=== PATIENT | male | born 1960 | race Caucasian/White ===

== ENCOUNTER 2024-04-07 12:07 | Inpatient (IN) ==
[2024-04-07 12:41] LABS: Basophils # (auto) 0.01 K/uL (0.00-0.20); Basophils % (auto) 0.1 %; Eosinophils # (auto) 0.05 K/uL (0.00-0.50); Eosinophils % (auto) 0.5 %; Hematocrit (blood only) 38.6 % (42.0-52.0); Hemoglobin 13.1 g/dl (14.0-18.0); Immature Granulocytes # (auto) 0.06 K/uL (0.01-0.20); Immature Granulocytes % (auto) 0.6 %; Lymphocytes # (auto) 2.04 K/uL (1.20-3.40); Lymphocytes % (auto) 19.7 %; Mean Corpuscular Hemoglobin 29.8 pg (25.0-34.0); Mean Corpuscular Hgb Conc 33.9 g/dL (32.0-36.0); Mean Corpuscular Volume 87.9 fL (80.0-100.0); Mean Platelet Volume 9.4 fL (9.4-12.4); Monocytes # (auto) 0.42 K/uL (0.11-0.59); Monocytes % (auto) 4.1 %; Neutrophils # (auto) 7.78 K/uL (1.40-6.50); Platelet Count 206 K/uL (130-400); RDW Coefficient of Variation 12.7 % (11.5-14.5); RDW Standard Deviation 41.1 fL (36.4-46.3); Red Blood Count 4.39 M/uL (4.70-6.10); White Blood Count 10.36 K/ul (4.8-10.8)
--- NOTE | 2024-04-07 13:00 | XRay Report ---
XR chest 1V portable HISTORY: 64 years-old Male dizziness COMPARISON: None TECHNIQUE: AP view of the chest FINDINGS: Cardiac silhouette is upper limits of normal in size. Cervical spinal fusion hardware. No pneumothora x, pleural effusion or airspace consolidation. Chronic appearing mid right clavicular fracture deform ity. Age-indeterminate widening of the left AC joint, also likely chronic. IMPRESSION: No acute process. ACT 112: Negative or not required by law. The above report was generated using voice recognition software. It may contain grammatical, syntax o r spelling errors. Electronically signed by: Jesus Alberto Palmer M.D. 04/07/2024 12:58 PM
[2024-04-07 13:04] LABS: Albumin Globulin Ratio 1.2 (0.9-2); BUN Creatinine Ratio 22.2 (10-20); Bilirubin,Total 0.9 mg/dl (0.2-1.0); Calcium 9.5 mg/dl (8.6-10.3); Creatinine Clr Calc Pharmacy 135.5 ml/min; Globulin 3.3 gm/dl (2.5-4.0); Magnesium 1.9 mg/dl (1.7-2.4); Phosphorus 3.2 mg/dl (2.5-4.9); Potassium 4.3 mmol/L (3.5-5.1); Total Protein 7.3 gm/dl (6.0-8.3)
[2024-04-07 13:05] LABS: Prothrombin Time 10.5 Seconds (9.0-12.0)
[2024-04-07 13:16] LABS: Thyroid Stimulating Hormone 1.069 uIu/ml (0.300-4.500)
[2024-04-07 13:28] LABS: Adenovirus PCR Not Detected (NotDetected); Bordetella parapertussis PCR Not Detected (NotDetected); Bordetella pertussis PCR Not Detected (NotDetected); Chlamydia pneumoniae PCR Not Detected (NotDetected); Coronavirus 229E PCR Not Detected (NotDetected); Coronavirus CoV-2 (COVID19)PCR Not Detected (NotDetected); Coronavirus HKU1 PCR Not Detected (NotDetected); Coronavirus NL63 PCR Not Detected (NotDetected); Coronavirus OC43PCR Not Detected (NotDetected); Human Metapneumovirus PCR Not Detected (NotDetected); Influenza A PCR Not Detected (NotDetected); Influenza B PCR Not Detected (NotDetected); Mycoplasma pneumoniae PCR Not Detected (NotDetected); Parainfluenza Virus 1 PCR Not Detected (NotDetected); Parainfluenza Virus 2 PCR Not Detected (NotDetected); Parainfluenza Virus 3 PCR Not Detected (NotDetected); Parainfluenza Virus 4 PCR Not Detected (NotDetected); Respiratory Syncytial VirusPCR Not Detected (NotDetected); Rhinovirus/Enterovirus PCR Not Detected (NotDetected)
[2024-04-07] MEDS: ONDANSETRON INJ 2 MG/ML 2 ML VIAL IV STA ×2 (14:08→21:12)
[2024-04-07] MEDS: MECLIZINE HCL 25 MG TAB PO STA (14:09)
[2024-04-07] MEDS: SODIUM CHLORIDE 0.9% 1,000 ML IV ONE (14:13)
--- NOTE | 2024-04-07 14:29 | Emergency Department Note ---
Impression & Plan Vertigo, Imbalance, Abnormal CT scan of head ED Provider Note NAME: GUY HOBBS AGE: 64 SEX: M : 1960 ARRIVES VIA: Ambulance INFORMANT: Patient ED PROVIDER(S): Manny Flowers MD CHIEF COMPLAINT: Vertigo PLAN: Disposition: Admit MEDICAL DECISION MAKING: The patient is a pleasant 64-year-old gentleman with a past medical history of type 2 diabetes, hypertension, BPH who presents to the emergency department via EMS for evaluation of persistence of room spinning/vertigo with associated nausea and dry heaves at began last night. Patient denies having prior similar episodes. He denies any recent illness including denies fevers, chills, cough, congestion. He reports having some loose stool which is not uncommon for him in the setting of his diabetes medication. He denies any urinary symptoms. He denies any chest pain or shortness of breath. He reports taking a low-dose aspirin daily. He is not on anticoagulation. On evaluation the patient is fatigued appearing but no distress, afebrile heart in the 90s and blood pressure 150s/80s and vital signs otherwise stable. Appears clinically dry. He has no focal neurologic deficits at this time. However he reports subtle persistence of room spinning sensation at rest. He reports symptoms worsen with head movements. EKG without overt acute ischemia. CXR negative for acute cardiopulmonary process per my personal preliminary review/interpretation. WBC and platelets within normal limits. Chemistry without metabolic acidosis. BUN/creatinine is 22 consistent with patient's clinically dry appearance. LFTs are unremarkable. HS troponin 5.0, within normal limits. Lipase is normal. TSH within normal limits. Respiratory bio fire was negative. CT of the head and CT of the head and neck were performed and were negative for acute ICH or ischemia. However note is made of left basal ganglia hypodensity which is suspected to likely be chronic and could represent a prominent perivascular space or a small old infarct. On reevaluation patient denied any significant treatment following evaluation, Zofran and meclizine. Given persistence of his symptoms and imaging which suggest possibility of history of stroke patient agrees to plan for admission for further evaluation and management. Case was discussed with Brandi Cohen, [facility] PAC, with Dr. Bermudez, [facility] hospitalist who will evaluate the patient for admission. Further management per admitting team. Triage Nursing notes reviewed and agree them. Prior/external medical records reviewed Vital Signs: reviewed Differential diagnosis: Benign positional vertigo, dehydration, hypovolemia, anemia, tumor, infection, hypoglycemia, electrolyte abnormalities, cardiac sources, intracerebral event, toxicologic, neurologic, as well as other pathologies. ER treatment provided: See below. Diagnostics interpreted by me: ECG: Normal sinus rhythm, 79 bpm, no ectopy, no overt ST elevation or depression, QTc 449, QRS 90. Cardiac Monitoring: An order for continuous cardiac monitoring was placed and demonstrated Normal sinus rhythm, 79 bpm, no ectopy. Laboratory studies: See below Imaging studies: See below Consultation(s): Case was discussed with Brandi Cohen, [facility] PAC, with Dr. Bermudez, [facility] hospitalist who will evaluate the patient for admission. HPI: The patient is a pleasant 64-year-old gentleman with a past medical history of type 2 diabetes, hypertension, BPH who presents to the emergency department via EMS for evaluation of persistence of room spinning/vertigo with associated nausea and dry heaves at began last night. Patient denies having prior similar episodes. He denies any recent illness including denies fevers, chills, cough, congestion. He reports having some loose stool which is not uncommon for him in the setting of his diabetes medication. He denies any urinary symptoms. He denies any chest pain or shortness of breath. He reports taking a low-dose aspirin daily. He is not on anticoagulation. ROS: See above HPI for pertinent positives & negatives. A total of 10 systems reviewed and were otherwise negative. VITALS:See Below PHYSICAL EXAMINATION: GENERAL: Awake, alert, fatigued-appearing, in no distress, BMI 38.6. HENT: Normocephalic, atraumatic. Oropharynx with dry mucous membranes and otherwise unremarkable. EYES: Normal conjunctiva. Sclera non-icteric. EOMI. No nystamgus. PEARRL. NECK: Supple. No nuchal rigidity. FROM. No JVD. RESPIRATORY: Clear to auscultation. CARDIAC: Regular rate, normal rhythm. Extremities warm and well perfused. Pulses equal. ABDOMEN: Soft, non-distended. No tenderness to palpation. No rebound or guarding. No masses. MUSCULOSKELETAL: Chest examination reveals no tenderness. The back is symmetrical on inspection without obvious abnormality. There is no CVA tenderness to palpation. No joint edema. LOWER EXTREMITIES: Calves are equal size bilaterally and non-tender. No edema. No discoloration. NEURO: Normal sensorium. No sensory or motor deficits noted. 5/5 strength and SILT x 4 extremities. Cerebellar function intact including [id number], alternating palms, [id number]. SKIN: No rash or jaundice noted. Manny Flowers MD Past Med/Surg History Problem List Abnormal CT scan of head (Acute) Imbalance (Acute) Vertigo (Acute) Medical History BPH (benign prostatic hyperplasia) Type 2 diabetes mellitus Social History Smoking Status: Never smoker Preferred Language: Angolan Feels Safe at Home: Yes Allergies Allergies Allergy/AdvReac Type Severity Reaction Status Date / Time No Known Allergies Allergy Unverified 04/07/24 16:53 Home Meds Home Medications Medication Instructions Recorded Confirmed atorvastatin 40 mg tablet 40 mg PO QAM 04/07/24 04/07/24 dulaglutide 4.5 mg/0.5 mL 4.5 mg subcut WK 04/07/24 04/07/24 subcutaneous pen injector (Trulicity) famotidine 20 mg tablet 20 mg PO BID PRN heart burn 04/07/24 04/07/24 glipizide 10 mg tablet, extended 20 mg PO QAM 04/07/24 04/07/24 release 24 hr hydrochlorothiazide 25 mg tablet 25 mg PO QAM 04/07/24 04/07/24 hydrocodone 7.5 mg-acetaminophen 1 tab PO Q6H PRN Pain 04/07/24 04/07/24 325 mg tablet insulin glargine 100 unit/mL (3 40 - 45 unit subcut UD 04/07/24 04/07/24 mL) subcutaneous pen (Lantus Solostar U-100 Insulin) lisinopril 10 mg tablet 10 mg PO QAM 04/07/24 04/07/24 metformin 500 mg tablet,extended 1,000 mg PO BID 04/07/24 04/07/24 release 24 hr tamsulosin 0.4 mg capsule 0.4 mg PO QAM 04/07/24 04/07/24 Results & Data (ED) Vital Signs Vital Signs - 24 hr 04/07/24 12:18 04/07/24 12:18 04/07/24 12:27 Temperature 36.9 C Temperature Source Temporal Artery Scan Pulse Rate 97 H 90 80 Pulse Rhythm Regular Respiratory Rate 12 12 Respiratory Effort / Characteristics Non-Labored Respiratory Depth Normal Respiratory Pattern Regular Blood Pressure 158/84 H Blood Pressure Mean 108 Pulse Oximetry 96 96 Oxygen Delivery Method Room Air Room Air Sepsis Recent Fever Within 48 Hours No Sepsis New/Unexplained Change in Mental Status N/A Sepsis Action Taken by Nursing No Action Required 04/07/24 12:30 04/07/24 13:00 04/07/24 13:30 Temperature Temperature Source Pulse Rate 83 84 77 Pulse Rhythm Respiratory Rate 18 18 14 Respiratory Effort / Characteristics Respiratory Depth Respiratory Pattern Blood Pressure 149/89 H 145/84 H 134/82 Blood Pressure Mean 120 97 102 Pulse Oximetry 96 Oxygen Delivery Method Sepsis Recent Fever Within 48 Hours Sepsis New/Unexplained Change in Mental Status Sepsis Action Taken by Nursing 04/07/24 14:00 04/07/24 14:30 04/07/24 14:48 Temperature Temperature Source Pulse Rate 70 80 Pulse Rhythm Respiratory Rate 14 21 21 Respiratory Effort / Characteristics Respiratory Depth Respiratory Pattern Blood Pressure 136/83 150/84 H Blood Pressure Mean 98 114 Pulse Oximetry 95 98 Oxygen Delivery Method Sepsis Recent Fever Within 48 Hours Sepsis New/Unexplained Change in Mental Status Sepsis Action Taken by Nursing 04/07/24 16:00 04/07/24 16:00 04/07/24 16:15 Temperature Temperature Source Pulse Rate 75 76 Pulse Rhythm Respiratory Rate 20 18 Respiratory Effort / Characteristics Respiratory Depth Respiratory Pattern Blood Pressure 138/79 Blood Pressure Mean 110 Pulse Oximetry Oxygen Delivery Method Sepsis Recent Fever Within 48 Hours Sepsis New/Unexplained Change in Mental Status Sepsis Action Taken by Nursing 04/07/24 16:24 04/07/24 16:30 04/07/24 16:30 Temperature Temperature Source Pulse Rate 77 Pulse Rhythm Respiratory Rate Respiratory Effort / Characteristics Respiratory Depth Respiratory Pattern Blood Pressure 134/79 134/79 Blood Pressure Mean 109 109 Pulse Oximetry Oxygen Delivery Method Sepsis Recent Fever Within 48 Hours Sepsis New/Unexplained Change in Mental Status Sepsis Action Taken by Nursing 04/07/24 16:30 Temperature Temperature Source Pulse Rate 78 Pulse Rhythm Respiratory Rate 18 Respiratory Effort / Characteristics Respiratory Depth Respiratory Pattern Blood Pressure Blood Pressure Mean Pulse Oximetry Oxygen Delivery Method Sepsis Recent Fever Within 48 Hours Sepsis New/Unexplained Change in Mental Status Sepsis Action Taken by Nursing Laboratory Data 04/07/24 12:16 04/07/24 12:16 Lab Results 04/07/24 Range/Units 12:16 WBC 10.36 (4.8-10.8) K/ul RBC 4.39 L (4.70-6.10) M/uL Hgb 13.1 L (14.0-18.0) g/dl Hct 38.6 L (42.0-52.0) % MCV 87.9 (80.0-100.0) fL MCH 29.8 (25.0-34.0) pg MCHC 33.9 (32.0-36.0) g/dL RDW Std Deviation 41.1 (36.4-46.3) fL RDW Coeff of Shira 12.7 (11.5-14.5) % Plt Count 206 (130-400) K/uL MPV 9.4 (9.4-12.4) fL Immature Gran % (Auto) 0.6 % Neut % (Auto) 75.0 % Lymph % (Auto) 19.7 % Redwood % (Auto) 4.1 % Eos % (Auto) 0.5 % Baso % (Auto) 0.1 % Neut # (Auto) 7.78 H (1.40-6.50) K/uL Lymph # (Auto) 2.04 (1.20-3.40) K/uL Redwood # (Auto) 0.42 (0.11-0.59) K/uL Eos # (Auto) 0.05 (0.00-0.50) K/uL Baso # (Auto) 0.01 (0.00-0.20) K/uL Immature Gran # (Auto) 0.06 (0.01-0.20) K/uL PT 10.5 (9.0-12.0) Seconds INR 1.0 (0.9-1.1) Sodium 139 (136-145) mmol/L Potassium 4.3 (3.5-5.1) mmol/L Chloride 102 (98-107) mmol/L Carbon Dioxide 31 (21-32) mmol/L Anion Gap 6 (3-11) BUN 18 (6-23) mg/dl Creatinine 0.81 (0.6-1.4) mg/dl Est Cr Clr Drug Dosing 135.5 ml/min eGFR 97.24 BUN/Creatinine Ratio 22.2 H (10-20) Glucose 136 H (70-99(Fasting)) mg/dl Calcium 9.5 (8.6-10.3) mg/dl Phosphorus 3.2 (2.5-4.9) mg/dl Magnesium 1.9 (1.7-2.4) mg/dl Total Bilirubin 0.9 (0.2-1.0) mg/dl AST 24 (13-39) U/L ALT 30 (7-52) U/L Alkaline Phosphatase 60 (34-104) U/L Troponin I High Sens 5.0 (0-20) pg/ml Total Protein 7.3 (6.0-8.3) gm/dl Albumin 4.0 (3.4-5.0) gm/dl Globulin 3.3 (2.5-4.0) gm/dl Albumin/Globulin Ratio 1.2 (0.9-2) Lipase 14 (11-82) U/L TSH 1.069 (0.300-4.500) uIu/ml Adenovirus (PCR) Not Detected (NotDetected) B. pertussis DNA (PCR) Not Detected (NotDetected) B.parapertussis DNA PCR Not Detected (NotDetected) C. pneumoniae DNA (PCR) Not Detected (NotDetected) Coronavirus OC43 (PCR) Not Detected (NotDetected) Coronavirus HKU1 (PCR) Not Detected (NotDetected) Coronavirus 229E (PCR) Not Detected (NotDetected) SARS-CoV-2 (PCR) Not Detected (NotDetected) Coronavirus NL63 (PCR) Not Detected (NotDetected) Human Metapneumovir PCR Not Detected (NotDetected) Influenza Type A (PCR) Not Detected (NotDetected) Influenza Type B (PCR) Not Detected (NotDetected) M. pneumoniae (PCR) Not Detected (NotDetected) Parainfluenza 1 (PCR) Not Detected (NotDetected) Parainfluenza 2 (PCR) Not Detected (NotDetected) Parainfluenza 3 (PCR) Not Detected (NotDetected) Parainfluenza 4 (PCR) Not Detected (NotDetected) RSV (PCR) Not Detected (NotDetected) Entero/Rhino (PCR) Not Detected (NotDetected) Administered Medications Discontinued Medications Sodium Chloride (Nss) 1,000 mls @ 999 mls/hr IV .Q1H1M ONE Stop: 04/07/24 14:48 Last Infusion: 04/07/24 15:19 Dose: Infused Documented By: Admin: 04/07/24 14:13 Dose: 999 mls/hr Documented By: VINEET Ioversol (Optiray 320 125ml) 119 ml IV ONCE ONE Stop: 04/07/24 15:27 Last Admin: 04/07/24 15:26 Dose: 119 ml Documented By: ADALGISA Meclizine HCl (Meclizine Hcl 25 Mg Tab) 25 mg PO NOW STA Stop: 04/07/24 13:49 Last Admin: 04/07/24 14:09 Dose: 25 mg Documented By: VINEET Ondansetron HCl (Ondansetron Inj 2 Mg/Ml 2 Ml Vial) 4 mg IV NOW STA Stop: 04/07/24 13:49 Last Admin: 04/07/24 14:08 Dose: 4 mg Documented By: VINEET Imaging Data Radiologist's Impression: Chest X-Ray 04/07/24 12:12 XR chest 1V portable HISTORY: 64 years-old Male dizziness COMPARISON: None TECHNIQUE: AP view of the chest FINDINGS: Cardiac silhouette is upper limits of normal in size. Cervical spinal fusion hardware. No pneumothorax, pleural effusion or airspace consolidation. Chronic appearing mid right clavicular fracture deformity. Age-indeterminate widening of the left AC joint, also likely chronic. IMPRESSION: No acute process. ACT 112: Negative or not required by law. The above report was generated using voice recognition software. It may contain grammatical, syntax or spelling errors. Electronically signed by: Jesus Alberto Palmer M.D. 04/07/2024 12:[address] 04/07/24 13:48 CT OF THE HEAD WITHOUT CONTRAST CLINICAL HISTORY: Vertigo. COMPARISON STUDY: No previous studies for comparison. CT DOSE: 1697.69 mGy.cm TECHNIQUE: Helical axial images of the head were obtained without IV contrast. Automated exposure control was utilized for the study. A dose lowering technique was utilized adhering to the principles of ALARA. FINDINGS: No acute intracranial hemorrhage, midline shift or mass effect is present. The ventricular system is unremarkable. The basal cisterns are patent. A 1.3 cm hypodense focus within the left basal ganglia is present. No extra- axial collections are present. There are no findings to suggest acute dural sinus thrombosis or acute territorial infarct. No significant calvarial abnormalities are present. Visualized portions of the sinuses and mastoid air cells are clear. IMPRESSION: 1. No acute intracranial findings. 2. 1.3 cm hypodense focus within the left basal ganglia. This is likely chronic and could represent a prominent perivascular space or small old infarct. ACT 112: Negative or not required by law. Electronically signed by: Tobi Acuña M.D. 04/07/2024 3:51 PM Head CTA 04/07/24 13:48 CT angio head w con CLINICAL HISTORY: 64 years-old Male with vertigo. Acute vertigo COMPARISON STUDY: Head CT of same day TECHNIQUE: Following, following the IV administration of 119 cc of Optiray, CT angiogram of the brain was performed from the skull base to the vertex. Images are reviewed in the axial, sagittal, and coronal planes. 3-D MIPS images are created and assessed. IV contrast was administered without complication. All measurements were obtained according to NASCET criteria. A dose lowering technique was utilized adhering to the principles of ALARA. FINDINGS: CT ANGIOGRAM OF THE BRAIN: There is moderate atherosclerosis of the cavernous and clinoid segments of the internal carotid arteries without significant stenosis. The bilateral anterior and middle cerebral arteries are also patent. The vertebrobasilar system and posterior cerebral arteries are widely patent. There is no aneurysm, high-grade stenosis, or proximal branch occlusion identified. Dural sinuses appear patent. Extra-axial 1.2 cm calcification noted along the inner table of the skull adjacent to the superior right frontal lobe. Moderate mucosal thickening of the inferior right maxillary sinus. Cervical spinal fusion hardware. IMPRESSION: Unremarkable CTA of the head. ACT 112: Negative or not required by law. The above report was generated using voice recognition software. It may contain grammatical, syntax or spelling errors. Electronically signed by: Jesus Alberto Palmer M.D. 04/07/2024 4:04 PM Neck CTA 04/07/24 13:48 CT ANGIOGRAPHY OF THE NECK WITH CONTRAST CLINICAL HISTORY: Vertigo. COMPARISON STUDY: No previous studies for comparison. Technique: CT angiography of the carotid and vertebral arteries was obtained using Optiray and 3D reconstruction on an independent workstation. NASCET criteria was utilized. Automated exposure control was utilized for the study. A dose lowering technique was utilized adhering to the principles of ALARA. Findings: Visualized portions of the lung apices are unremarkable. There are no cervical spine fractures. Postoperative findings within the cervical spine are noted. The bilateral common carotid and cervical internal carotid arteries are patent. There is mild plaque within the left carotid bifurcation without stenosis. There is no aneurysm or dissection within the neck. The right vertebral artery is patent. The origin of the left vertebral artery is suboptimally assessed due to artifact however there is tortuosity with suspected moderate narrowing at the origin of the left vertebral artery. There is no dissection within the vertebral arteries. IMPRESSION: 1. No stenoses within the bilateral common carotid or cervical internal carotid arteries. 2. Suspected moderate stenosis at the origin of the left vertebral artery, suboptimally assessed due to artifact. ACT 112: Negative or not required by law. Electronically signed by: Tobi Acuña M.D. 04/07/2024 4:08 PM Discharge Plan Visit Data Chief Complaint: Vertigo ED Provider: Manny Flowers Discharge Problem: Vertigo, Imbalance, Abnormal CT scan of head Forms Stand Alone Forms: [facility] Prescriptions Prescriptions: No Action atorvastatin 40 mg tablet 40 mg PO QAM glipizide 10 mg tablet extended release 24hr 20 mg PO QAM famotidine 20 mg tablet 20 mg PO BID PRN (Reason: heart burn) tamsulosin 0.4 mg capsule 0.4 mg PO QAM hydrocodone-acetaminophen 7.5-325 mg tablet 1 tab PO Q6H PRN (Reason: Pain) lisinopril 10 mg tablet 10 mg PO QAM hydrochlorothiazide 25 mg tablet 25 mg PO QAM metformin 500 mg tablet extended release 24 hr 1,000 mg PO BID insulin glargine [Lantus Solostar U-100 Insulin] 100 unit/mL (3 mL) insulin pen 40 - 45 unit SUBCUT UD Rx Instructions: 45 units subcut qam, 40 units subcut qpm Trulicity 4.5 mg/0.5 mL pen injector 4.5 mg subcut WK Rx Instructions: friday mornings Referrals Referrals: Marinelli,Rashaun, MD [Primary Care Provider] -
[2024-04-07] MEDS: OPTIRAY 320 125ml IV ONE (15:26)
--- NOTE | 2024-04-07 15:53 | CT Scan Report ---
CT OF THE HEAD WITHOUT CONTRAST CLINICAL HISTORY: Vertigo. COMPARISON STUDY: No previous studies for comparison. CT DOSE: 1697.69 mGy.cm TECHNIQUE: Helical axial images of the head were obtained without IV contrast. Automated exposure con trol was utilized for the study. A dose lowering technique was utilized adhering to the principles o f ALARA. FINDINGS: No acute intracranial hemorrhage, midline shift or mass effect is present. The ventricular system is unremarkable. The basal cisterns are patent. A 1.3 cm hypodense focus within the left basal ganglia is present. No extra-axial collections are present. There are no findings to suggest acute d ural sinus thrombosis or acute territorial infarct. No significant calvarial abnormalities are presen t. Visualized portions of the sinuses and mastoid air cells are clear. IMPRESSION: 1. No acute intracranial findings. 2. 1.3 cm hypodense focus within the left basal ganglia. This is likely chronic and could represent a prominent perivascular space or small old infarct. ACT 112: Negative or not required by law. Electronically signed by: Tobi Acuña M.D. 04/07/2024 3:51 PM
--- NOTE | 2024-04-07 16:05 | CT Scan Report ---
CT angio head w con CLINICAL HISTORY: 64 years-old Male with vertigo. Acute vertigo COMPARISON STUDY: Head CT of same day TECHNIQUE: Following, following the IV administration of 119 cc of Optiray, CT angiogram of the brain was performed from the skull base to the vertex. Images are reviewed in the axial, sagittal, and cor onal planes. 3-D MIPS images are created and assessed. IV contrast was administered without complicat ion. All measurements were obtained according to NASCET criteria. A dose lowering technique was utili zed adhering to the principles of ALARA. FINDINGS: CT ANGIOGRAM OF THE BRAIN: There is moderate atherosclerosis of the cavernous and clinoid segments of the internal carotid arter ies without significant stenosis. The bilateral anterior and middle cerebral arteries are also patent . The vertebrobasilar system and posterior cerebral arteries are widely patent. There is no aneurysm, high-grade stenosis, or proximal branch occlusion identified. Dural sinuses appear patent. Extra-axial 1.2 cm calcification noted along the inner table of the skull adjacent to the superior ri ght frontal lobe. Moderate mucosal thickening of the inferior right maxillary sinus. Cervical spinal fusion hardware. IMPRESSION: Unremarkable CTA of the head. ACT 112: Negative or not required by law. The above report was generated using voice recognition software. It may contain grammatical, syntax o r spelling errors. Electronically signed by: Jesus Alberto Palmer M.D. 04/07/2024 4:04 PM
--- NOTE | 2024-04-07 16:10 | CT Scan Report ---
CT ANGIOGRAPHY OF THE NECK WITH CONTRAST CLINICAL HISTORY: Vertigo. COMPARISON STUDY: No previous studies for comparison. Technique: CT angiography of the carotid and vertebral arteries was obtained using Optiray and 3D rec onstruction on an independent workstation. NASCET criteria was utilized. Automated exposure control was utilized for the study. A dose lowering technique was utilized adhering to the principles of ALA RA. Findings: Visualized portions of the lung apices are unremarkable. There are no cervical spine fractu res. Postoperative findings within the cervical spine are noted. The bilateral common carotid and cer vical internal carotid arteries are patent. There is mild plaque within the left carotid bifurcation without stenosis. There is no aneurysm or dissection within the neck. The right vertebral artery is p atent. The origin of the left vertebral artery is suboptimally assessed due to artifact however there is tortuosity with suspected moderate narrowing at the origin of the left vertebral artery. There is no dissection within the vertebral arteries. IMPRESSION: 1. No stenoses within the bilateral common carotid or cervical internal carotid arteries. 2. Suspected moderate stenosis at the origin of the left vertebral artery, suboptimally assessed due to artifact. ACT 112: Negative or not required by law. Electronically signed by: Tobi Acuña M.D. 04/07/2024 4:08 PM
--- NOTE | 2024-04-07 17:33 | History & Physical Report ---
Date of Service April 07, 2024 Assessment & Plan (1) Dizziness: (2) Abnormal CT scan of head: Plan: Patient is 64-year-old male with PMH insulin dependent DM II, HTN, HLD, BPH presented to ER with c/o dizziness x 1 day. Patient states yesterday afternoon started noticing some dizziness which he describes as sensation that room is moving [id number] and he feels off balance. In ER afebrile, vitals stable. No leukocytosis. Hgb: 13, glucose: 136, no other significant electrolyte abnormality. Negative troponin. TSH: 1.0. Negative respiratory BioFire panel. EKG: sinus rhythm CT head: No acute intracranial findings. 1.3 cm hypodense focus within the left basal ganglia. This is likely chronic and could represent a prominent perivascular space or small old infarct. CTA head: Unremarkable CTA of the head. CTA neck: No stenoses within the bilateral common carotid or cervical internal carotid arteries. Suspected moderate stenosis at the origin of the left vertebral artery, suboptimally assessed due to artifact. CXR: no acute findings In ER given 1L NSS, Zofran, meclizine Patient reports improvement of dizziness symptoms and is comfortable at rest currently. Does have some recurrence of dizziness symptoms with quick lateral head movements, but reports are not as severe as when initially presented to ER Meclizine as needed PT/OT eval, consider Brittny maneuver Orthostatic vital signs Tele to monitor for arrhythmias Lipid panel, A1c, cbc, bmp in AM MRI without contrast Echo with bubble study Continue home atorvastatin, aspirin Neurology consult (3) Type 2 diabetes mellitus: Plan: Insulin-dependent A1c: 8.1 on 01/30/2024 Hold home glipizide, metformin, Trulicity Continue home Lantus NovoLog sliding scale per protocol (4) HTN (hypertension): Plan: Continue lisinopril, HCTZ (5) HLD (hyperlipidemia): Plan: Continue atorvastatin (6) BPH (benign prostatic hyperplasia): Plan: Continue tamsulosin DVT Prophylaxis Lovenox SQ Admit telemetry Full Code as per discussion with pt Follows with Dr Marinelli for routine care Pt was seen and care coordinated with Dr Bermudez. See addendum I spent a total of 78 minutes reviewing notes, outpatient records, labs, m edication, coordinating, documenting and providing care for this patient excluding time spent in the performance of separately billed services. History of Present Illness Chief Complaint: Dizziness Primary Care Provider: Rashaun Marinelli MD Patient is 64-year-old male with PMH insulin dependent DM II, HTN, HLD, BPH presented to ER with c/o dizziness x 1 day. Patient states yesterday afternoon started noticing some dizziness which he describes as sensation that room is moving [id number] and he feels off balance. It is associated with nausea and dry heaves. Dizziness seems to occur with looking left and right. Denies any fall. Denies any head injury. He reports approximately 1 month ago had nasal congestion, rhinorrhea, ear fullness and had slight dizzy sensation at that time which had resolved after resolution of his URI symptoms. Denies any chest pain, palpitations, syncope, vision changes, speech changes, facial drooping, extremity paresthesias, fever/chills, constipation, new onset diarrhea, SARKAR, syncope, neck pain, SOB, cough, sore throat, otalgia, ear discharge, current rhinorrhea, abdominal pain, paresthesias, extremity weakness, extremity edema, rashes, urinary symptoms. Allergies Allergy/AdvReac Type Severity Reaction Status Date / Time No Known Allergies Allergy Unverified 04/07/24 16:53 Home Medications Medication Instructions Recorded Confirmed Type aspirin 81 mg tablet,delayed 81 mg PO DAILY 04/07/24 04/07/24 History release atorvastatin 40 mg tablet 40 mg PO QAM 04/07/24 04/07/24 History dulaglutide 4.5 mg/0.5 mL 4.5 mg subcut WK 04/07/24 04/07/24 History subcutaneous pen injector (Trulicity) famotidine 20 mg tablet 20 mg PO BID PRN heart burn 04/07/24 04/07/24 History glipizide 10 mg tablet, extended 10 mg PO BID 04/07/24 04/07/24 History release 24 hr hydrochlorothiazide 25 mg tablet 25 mg PO QAM 04/07/24 04/07/24 History hydrocodone 7.5 mg-acetaminophen 1 tab PO Q6H PRN Pain 04/07/24 04/07/24 History 325 mg tablet insulin glargine 100 unit/mL (3 40 - 45 unit subcut UD 04/07/24 04/07/24 History mL) subcutaneous pen (Lantus Solostar U-100 Insulin) lisinopril 10 mg tablet 10 mg PO QAM 04/07/24 04/07/24 History metformin 500 mg tablet,extended 1,000 mg PO BID 04/07/24 04/07/24 History release 24 hr tamsulosin 0.4 mg capsule 0.4 mg PO QAM 04/07/24 04/07/24 History Past Med/Surg History Problem List (Updated 04/07/24 @ 20:00 by Bridget Cohen PA-C) Dizziness Abnormal CT scan of head (Acute) Imbalance (Acute) Vertigo (Acute) Medical History (Updated 04/07/24 @ 20:00 by Bridget Cohen PA-C) HLD (hyperlipidemia) HTN (hypertension) BPH (benign prostatic hyperplasia) Type 2 diabetes mellitus Social History (Updated 04/07/24 @ 19:53 by Bridget Cohen PA-C) Smoking Status: Never smoker Hx Alcohol Use: Yes (6 beers a year) Alcohol type: beer Hx Substance Use: No Preferred Language: [place] Communication Ability: Effective Pharmacy Operations Manager Required: No Beliefs That Will Affect Care: None Current Living Situation: Alone Feels Safe at Home: Yes Safety Concerns: Feels Safe At This Time Review of Systems Review of Systems: All systems reviewed & are unremarkable except as noted in HPI & below Physical Exam Physical Exam: General: no acute distress, obese male Head: normocephalic, atraumatic Eyes: PERRL, EOM's intact, right eye with ptosis, conjunctiva non-injected, anicteric ENT: normal inspection external ears, left ear canal with cerumen and TM garcia and non-bulging, right ear canal with cerumen occluding visualization of TM, nose without rhinorrhea, mucous membranes moist Neck: supple, trachea midline Lungs: clear, no respiratory distress, no wheezing/rhonchi/rales CV: RRR, no murmur, no pretibial edema Abd: normal BS, soft, non-tender Ext: no cyanosis, no calf tenderness Neuro: A&O x 3, normal affect, No nystagmus noted, facial sensation is intact and symmetric, face is strong and symmetric, hearing grossly intact, soft palate elevates symmetrically, no dysarthria, shoulder shrug intact, tongue is midline, normal movement, no fasciculations. Strength 5/5 throughout bilateral upper and lower extremities, finger to nose intact, rapid alternating movements intact Skin: warm, dry Results & Data Results & Data Vital Signs (Past 12 Hours) Vital Signs Temp Pulse Resp BP Pulse Ox O2 Del Method 04/07/24 16:30 78 18 04/07/24 16:30 134/79 04/07/24 16:30 134/79 04/07/24 16:24 77 04/07/24 16:15 76 18 04/07/24 16:00 138/79 04/07/24 16:00 75 20 04/07/24 14:48 80 21 04/07/24 14:30 21 150/84 H 98 04/07/24 14:00 70 14 136/83 95 04/07/24 13:30 77 14 134/82 96 04/07/24 13:00 84 18 145/84 H 04/07/24 12:30 83 18 149/89 H 04/07/24 12:27 80 04/07/24 12:18 90 12 96 Room Air 04/07/24 12:18 36.9 C 97 H 12 158/84 H 96 Room Air Laboratory Results Short CBC 04/07/24 Range/Units 12:16 WBC 10.36 (4.8-10.8) K/ul Hgb 13.1 L (14.0-18.0) g/dl Hct 38.6 L (42.0-52.0) % Plt Count 206 (130-400) K/uL BMP 04/07/24 12:16 Sodium 139 Potassium 4.3 Chloride 102 Carbon Dioxide 31 BUN 18 Creatinine 0.81 Glucose 136 H Calcium 9.5 Liver Function 04/07/24 Range/Units 12:16 Total Bilirubin 0.9 (0.2-1.0) mg/dl AST 24 (13-39) U/L ALT 30 (7-52) U/L Alkaline Phosphatase 60 (34-104) U/L Albumin 4.0 (3.4-5.0) gm/dl Diagnostic Findings Chest X-Ray 04/07/24 12:12 XR chest 1V portable HISTORY: 64 years-old Male dizziness COMPARISON: None TECHNIQUE: AP view of the chest FINDINGS: Cardiac silhouette is upper limits of normal in size. Cervical spinal fusion hardware. No pneumothorax, pleural effusion or airspace consolidation. Chronic appearing mid right clavicular fracture deformity. Age-indeterminate widening of the left AC joint, also likely chronic. IMPRESSION: No acute process. ACT 112: Negative or not required by law. The above report was generated using voice recognition software. It may contain grammatical, syntax or spelling errors. Electronically signed by: Jesus Alberto Palmer M.D. 04/07/2024 12:[address] 04/07/24 13:48 CT OF THE HEAD WITHOUT CONTRAST CLINICAL HISTORY: Vertigo. COMPARISON STUDY: No previous studies for comparison. CT DOSE: 1697.69 mGy.cm TECHNIQUE: Helical axial images of the head were obtained without IV contrast. Automated exposure control was utilized for the study. A dose lowering technique was utilized adhering to the principles of ALARA. FINDINGS: No acute intracranial hemorrhage, midline shift or mass effect is present. The ventricular system is unremarkable. The basal cisterns are patent. A 1.3 cm hypodense focus within the left basal ganglia is present. No extra- axial collections are present. There are no findings to suggest acute dural sinus thrombosis or acute territorial infarct. No significant calvarial abnormalities are present. Visualized portions of the sinuses and mastoid air cells are clear. IMPRESSION: 1. No acute intracranial findings. 2. 1.3 cm hypodense focus within the left basal ganglia. This is likely chronic and could represent a prominent perivascular space or small old infarct. ACT 112: Negative or not required by law. Electronically signed by: Tobi Acuña M.D. 04/07/2024 3:51 PM Head CTA 04/07/24 13:48 CT angio head w con CLINICAL HISTORY: 64 years-old Male with vertigo. Acute vertigo COMPARISON STUDY: Head CT of same day TECHNIQUE: Following, following the IV administration of 119 cc of Optiray, CT angiogram of the brain was performed from the skull base to the vertex. Images are reviewed in the axial, sagittal, and coronal planes. 3-D MIPS images are created and assessed. IV contrast was administered without complication. All measurements were obtained according to NASCET criteria. A dose lowering technique was utilized adhering to the principles of ALARA. FINDINGS: CT ANGIOGRAM OF THE BRAIN: There is moderate atherosclerosis of the cavernous and clinoid segments of the internal carotid arteries without significant stenosis. The bilateral anterior and middle cerebral arteries are also patent. The vertebrobasilar system and posterior cerebral arteries are widely patent. There is no aneurysm, high-grade stenosis, or proximal branch occlusion identified. Dural sinuses appear patent. Extra-axial 1.2 cm calcification noted along the inner table of the skull adjacent to the superior right frontal lobe. Moderate mucosal thickening of the inferior right maxillary sinus. Cervical spinal fusion hardware. IMPRESSION: Unremarkable CTA of the head. ACT 112: Negative or not required by law. The above report was generated using voice recognition software. It may contain grammatical, syntax or spelling errors. Electronically signed by: Jesus Alberto Palmer M.D. 04/07/2024 4:04 PM Neck CTA 04/07/24 13:48 CT ANGIOGRAPHY OF THE NECK WITH CONTRAST CLINICAL HISTORY: Vertigo. COMPARISON STUDY: No previous studies for comparison. Technique: CT angiography of the carotid and vertebral arteries was obtained using Optiray and 3D reconstruction on an independent workstation. NASCET criteria was utilized. Automated exposure control was utilized for the study. A dose lowering technique was utilized adhering to the principles of ALARA. Findings: Visualized portions of the lung apices are unremarkable. There are no cervical spine fractures. Postoperative findings within the cervical spine are noted. The bilateral common carotid and cervical internal carotid arteries are patent. There is mild plaque within the left carotid bifurcation without stenosis. There is no aneurysm or dissection within the neck. The right vertebral artery is patent. The origin of the left vertebral artery is suboptimally assessed due to artifact however there is tortuosity with suspected moderate narrowing at the origin of the left vertebral artery. There is no dissection within the vertebral arteries. IMPRESSION: 1. No stenoses within the bilateral common carotid or cervical internal carotid arteries. 2. Suspected moderate stenosis at the origin of the left vertebral artery, suboptimally assessed due to artifact. ACT 112: Negative or not required by law. Electronically signed by: Tobi Acuña M.D. 04/07/2024 4:08 PM Supervising Physician Co-Signing Physician Notes 04/07/2024 The patient was seen and examined in emergency room in presence of the daughter He has been complaining of acute dizziness for the last day or 2 Dizziness is worse with movement and any sudden movement of the head as well Denies any associated symptoms of blurred vision, numbness or tingling in the extremities or any weakness involving any of the side Has been feeling a little better following administration of meclizine in the emergency room On examination Sitting at the edge of the bed without any acute distress Hemodynamically stable Chestclear to auscultate bilaterally HeartS1, S2, regular Abdomendistended with normal bowel sound and soft Extremitiestrace edema bilaterally CNSalert, awake and oriented x 3 and no focal sensory or motor deficit appreciated His admission labs, EKG and imaging studies reviewed Has significant finding of a 1.3 cm hypodense focus within the left basal ganglia which may be chronic and may or may not be related to vertigo Will need to have MRI of the brain to evaluate the lesion further and will get a neuroconsult and echo of the heart and also orthostatic vitals Symptomatic management with meclizine Agree with assessment and plan as outlined above by Bridget Cohen PA-C and take the full responsibility of care for the patient Dr Loreta Bermudez
[2024-04-07] MEDS ORDERED: DEXTROSE 50% 50 ML SYRINGE IV PRN (22:16)
[2024-04-07] MEDS ORDERED: GLUCAGON FOR INJ 1 MG VIAL SQ PRN (22:16)
[2024-04-07] MEDS ORDERED: HYDROCODONE/ACETAMINOPHEN 7.5/325MG TAB PO PRN (22:16)
[2024-04-07] MEDS ORDERED: ACETAMINOPHEN 325 MG TAB PO PRN (22:16)
[2024-04-07] MEDS ORDERED: GLUCOSE 10 TAB/TUBE PO PRN (22:16)
[2024-04-07] MEDS ORDERED: POLYETHYLENE (MIRALAX) 17 GM PACK PO PRN (22:16)
[2024-04-07] MEDS ORDERED: GLUCOSE 40% GEL 15 GM TUBE PO PRN (22:16)
[2024-04-07] MEDS ORDERED: CARBOHYDRATES FOR HYPOGLYCEMIA PO PRN (22:16)
[2024-04-07] MEDS ORDERED: PHARMACIST DISCHARGE MED REC CONSULT PRN (22:16)
[2024-04-07] MEDS ORDERED: ONDANSETRON INJ 2 MG/ML 2 ML VIAL IV PRN (22:16)
[2024-04-07] MEDS: INSULIN ASPART PER UNIT CHARGE SC SCH (22:51)
[2024-04-07] MEDS: LANTUS PER UNIT CHARGE SQ SCH (23:07)
[2024-04-07] MEDS: ENOXAPARIN INJ 40 MG/0.4 ML SYR SQ SCH (23:08)
[2024-04-08] MEDS: MECLIZINE HCL 25 MG TAB PO PRN (00:09)
[2024-04-08] MEDS: PROMETHAZINE 12.5 MG/50.5 ML BAG IV STA (00:28)
--- NOTE | 2024-04-08 01:34 | Magnetic Resonance Report ---
Exam(s): MRI HEAD Without Contrast EXAM: MR Head Without Intravenous Contrast CLINICAL HISTORY: Reason for exam: r/o stroke. TECHNIQUE: Magnetic resonance images of the head/brain without intravenous contrast in multiple planes. COMPARISON: No relevant prior studies available. FINDINGS: Brain: Mild nonspecific white matter changes. No mass. No hemorrhage. No acute infarct. The flow voids at the base of the brain are intact. Ventricles: Unremarkable. No ventriculomegaly. Bones/joints: Unremarkable. No acute fracture. Sinuses: Chronic right maxillary and ethmoid sinusitis. No acute sinusitis. Mastoid air cells: Unremarkable as visualized. No mastoid effusion. Orbits: Unremarkable as visualized. IMPRESSION: No evidence of acute intracranial pathology. Electronically signed by: Katie Whitten MD 04/08/24 01:34 AM
--- NOTE | 2024-04-08 06:06 | Electrocardiogram Report ---
Test Reason : Blood Pressure : */* mmHG Vent. Rate : 79 BPM Atrial Rate : 79 BPM P-R Int : 122 ms QRS Dur : 90 ms QT Int : 392 ms P-R-T Axes : -11 0 42 degrees QTcB Int : 449 ms Normal sinus rhythm Low voltage QRS Borderline ECG No previous ECGs available Confirmed by Domenico Trujillo ([id number]) on 04/08/2024 6:05:36 AM Referred By: Confirmed By: Domenico Trujillo
[2024-04-08 07:06] LABS: Hematocrit (blood only) 35.4 % (42.0-52.0); Hemoglobin 12.1 g/dl (14.0-18.0); Mean Corpuscular Hemoglobin 30.3 pg (25.0-34.0); Mean Corpuscular Hgb Conc 34.2 g/dL (32.0-36.0); Mean Corpuscular Volume 88.7 fL (80.0-100.0); Mean Platelet Volume 9.6 fL (9.4-12.4); Platelet Count 232 K/uL (130-400); RDW Coefficient of Variation 12.9 % (11.5-14.5); RDW Standard Deviation 41.9 fL (36.4-46.3); Red Blood Count 3.99 M/uL (4.70-6.10); White Blood Count 12.41 K/ul (4.8-10.8)
[2024-04-08 07:12] LABS: Estimated Average Glucose 157 mg/dl; Hemoglobin A1C 7.1 % (4.5-5.6)
[2024-04-08 07:29] LABS: BUN Creatinine Ratio 25.6 (10-20); Calcium 9.2 mg/dl (8.6-10.3); Creatinine Clr Calc Pharmacy 127.6 ml/min; Potassium 4.1 mmol/L (3.5-5.1)
[2024-04-08] MEDS: FAMOTIDINE 20 MG TAB PO PRN (09:09)
[2024-04-08] MEDS: MECLIZINE HCL 25 MG TAB PO SCH (09:09)
[2024-04-08] MEDS: lisinopril 10 MG TAB PO SCH (09:09)
[2024-04-08] MEDS: TAMSULOSIN HCL 0.4 MG CAP PO SCH (09:09)
[2024-04-08] MEDS: hydroCHLOROthiazide 25 MG TAB PO SCH (09:09)
[2024-04-08] MEDS: ASPIRIN 81 MG ECTAB PO SCH (09:10)
[2024-04-08] MEDS: ATORVASTATIN 40 MG TAB PO SCH (09:10)
--- NOTE | 2024-04-08 11:17 | Neurology Consultation ---
Date of Consultation April 08, 2024 Assessment & Plan (1) Vertigo: Acute on set room spinning dizziness in a 64M with a pMH of HTN, HLD and DM. Exam is essentially normal. CTA is unremarkable and MRI shows no evidence of stroke. I suspect these symptoms are secondary to an inner ear issue either BPPV or vestibulitis. Plan -- symptomatic treatment with meclizine -- on going PT -- no further inpatient neurologic recommendations Telehealth Consultation Telehealth Information Telehealth Information: I performed this visit using a real-time telehealth connection between my location and the patients location ([facility]). After connecting through interactive tele-video, patient was identified by name and date of and/or wristband check.Patient (or authorized healthcare specialty sales representative) was informed that this was a telemedicine visit and it was being conducted confidentially over secure lines. My office door was closed and no one else was present in the room with me.Patient (or authorized healthcare specialty sales representative) provided consent to proceed with the visit, expressed an understanding of privacy and security of the telemedicine visit, and gave permission to have a hospital specialty sales representative in the room in order to assist with the visit and to conduct portions of the visit, as needed. I informed the patient (or authorized healthcare specialty sales representative) that I reviewed their record and presented the opportunity for them to ask any questions regarding the visit today. The patient agreed to participate. History of Present Illness Reason for Consultation: dizziness Attending Physician: Tavo Gerber, History of Present Illness Marquez Casanova is a 64M with a PMH of DM2, HTN and HLD who presented yesterday to the ED with dizziness. He reprots that on Friday at noon he noticed some mild room spinning and then the next day the spinning was considerably worse and he couldn't walk into a straight line. Currently he reports that the symptoms were better but not back to normal. When lying still he feels mostly normal but when he turns his head the symptoms return. He does report a history of vertigo but not this bad. He denies any slurred speech, double vision, dysphagia, weakness or numbness. He denies chest pain and SOB. Allergies Allergy/AdvReac Type Severity Reaction Status Date / Time No Known Allergies Allergy Unverified 04/07/24 16:53 Home Medications Medication Instructions Recorded Confirmed Type aspirin 81 mg tablet,delayed 81 mg PO DAILY 04/07/24 04/07/24 History release atorvastatin 40 mg tablet 40 mg PO QAM 04/07/24 04/07/24 History dulaglutide 4.5 mg/0.5 mL 4.5 mg subcut WK 04/07/24 04/07/24 History subcutaneous pen injector (Trulicity) famotidine 20 mg tablet 20 mg PO BID PRN heart burn 04/07/24 04/07/24 History glipizide 10 mg tablet, extended 10 mg PO BID 04/07/24 04/07/24 History release 24 hr hydrochlorothiazide 25 mg tablet 25 mg PO QAM 04/07/24 04/07/24 History hydrocodone 7.5 mg-acetaminophen 1 tab PO Q6H PRN Pain 04/07/24 04/07/24 History 325 mg tablet insulin glargine 100 unit/mL (3 40 - 45 unit subcut UD 04/07/24 04/07/24 History mL) subcutaneous pen (Lantus Solostar U-100 Insulin) lisinopril 10 mg tablet 10 mg PO QAM 04/07/24 04/07/24 History metformin 500 mg tablet,extended 1,000 mg PO BID 04/07/24 04/07/24 History release 24 hr tamsulosin 0.4 mg capsule 0.4 mg PO QAM 04/07/24 04/07/24 History Patient History Medical History (Updated 04/07/24 @ 20:00 by Bridget Cohen PA-C) HLD (hyperlipidemia) HTN (hypertension) BPH (benign prostatic hyperplasia) Type 2 diabetes mellitus Social History (Updated 04/07/24 @ 19:53 by Bridget Cohen PA-C) Smoking Status: Never smoker Hx Alcohol Use: Yes (6 beers a year) Alcohol type: beer Hx Substance Use: No Preferred Language: Salvadorean Communication Ability: Effective Resource Analyst Required: No Beliefs That Will Affect Care: None Current Living Situation: Alone Feels Safe at Home: Yes Safety Concerns: Feels Safe At This Time Physical Exam NEUROLOGIC EXAMINATION: Mental Status:alert, oriented to time, place, person, normal recent memory, normal remote memory, normal attention span, normal concentration, normal language, and normal fund of knowledge Cranial Nerves: CN 2 - no visual defect on confrontation and pupils round, equal, reactive to light CN 3, 4, 6 - extra-ocular movements intact and no nystagmus CN 5 - facial sensation intact CN 7 - no facial asymmetry CN 8 - intact hearing CN 9, 10 - palate symmetric, normal gag CN 11 - good shoulder shrug CN 12 - tongue midline MOTOR: Strength was at least antigravity throughout, Pronator drift was absent, and There were no abnormal movements SENSATION: intact GAIT:deferred COORDINATION: no ataxia with finger to nose testing and heel to gardner testing REFLEXES: cannot assess over telemedicine Results & Data Vital Signs (Past 12 Hours) Vital Signs Temp Pulse Pulse Resp BP BP Pulse Ox 04/08/24 07:50 36.7 C 72 18 119/66 92 04/08/24 07:36 72 04/08/24 02:38 36.7 C 83 18 142/72 H 90 O2 Del Method 04/08/24 07:50 Room Air 04/08/24 07:36 04/08/24 02:38 Room Air Laboratory Results Abnormal Lab Results 04/07/24 04/07/24 04/08/24 12:16 22:41 06:18 WBC 10.36 12.41 H RBC 4.39 L 3.99 L Hgb 13.1 L 12.1 L Hct 38.6 L 35.4 L MCV 87.9 88.7 MCH 29.8 30.3 MCHC 33.9 34.2 RDW Std Deviation 41.1 41.9 RDW Coeff of Shira 12.7 12.9 Plt Count 206 232 MPV 9.4 9.6 Immature Gran % (Auto) 0.6 Neut % (Auto) 75.0 Lymph % (Auto) 19.7 [facility] % (Auto) 4.1 Eos % (Auto) 0.5 Baso % (Auto) 0.1 Neut # (Auto) 7.78 H Lymph # (Auto) 2.04 [facility] # (Auto) 0.42 Eos # (Auto) 0.05 Baso # (Auto) 0.01 Immature Gran # (Auto) 0.06 PT 10.5 INR 1.0 Sodium 139 143 Potassium 4.3 4.1 Chloride 102 105 Carbon Dioxide 31 30 Anion Gap 6 8 BUN 18 22 Creatinine 0.81 0.86 Est Cr Clr Drug Dosing 135.5 127.6 eGFR 97.24 95.50 BUN/Creatinine Ratio 22.2 H 25.6 H Glucose 136 H 73 POC Glucose 120 H Estimat Average Glucose 157 Hemoglobin A1c 7.1 H Calcium 9.5 9.2 Phosphorus 3.2 Magnesium 1.9 Total Bilirubin 0.9 AST 24 ALT 30 Alkaline Phosphatase 60 Troponin I High Sens 5.0 Total Protein 7.3 Albumin 4.0 Globulin 3.3 Albumin/Globulin Ratio 1.2 Triglycerides 103 Cholesterol 82 LDL Cholesterol, Calc 34 VLDL Cholesterol, Calc 21 HDL Cholesterol 27 Cholesterol/HDL Ratio 3.0 Lipase 14 TSH 1.069 Adenovirus (PCR) Not Detected B. pertussis DNA (PCR) Not Detected B.parapertussis DNA PCR Not Detected C. pneumoniae DNA (PCR) Not Detected Coronavirus OC43 (PCR) Not Detected Coronavirus HKU1 (PCR) Not Detected Coronavirus 229E (PCR) Not Detected SARS-CoV-2 (PCR) Not Detected Coronavirus NL63 (PCR) Not Detected Human Metapneumovir PCR Not Detected Influenza Type A (PCR) Not Detected Influenza Type B (PCR) Not Detected M. pneumoniae (PCR) Not Detected Parainfluenza 1 (PCR) Not Detected Parainfluenza 2 (PCR) Not Detected Parainfluenza 3 (PCR) Not Detected Parainfluenza 4 (PCR) Not Detected RSV (PCR) Not Detected Entero/Rhino (PCR) Not Detected 04/08/24 08:17 WBC RBC Hgb Hct MCV MCH MCHC RDW Std Deviation RDW Coeff of Shira Plt Count MPV Immature Gran % (Auto) Neut % (Auto) Lymph % (Auto) [facility] % (Auto) Eos % (Auto) Baso % (Auto) Neut # (Auto) Lymph # (Auto) [facility] # (Auto) Eos # (Auto) Baso # (Auto) Immature Gran # (Auto) PT INR Sodium Potassium Chloride Carbon Dioxide Anion Gap BUN Creatinine Est Cr Clr Drug Dosing eGFR BUN/Creatinine Ratio Glucose POC Glucose 89 Estimat Average Glucose Hemoglobin A1c Calcium Phosphorus Magnesium Total Bilirubin AST ALT Alkaline Phosphatase Troponin I High Sens Total Protein Albumin Globulin Albumin/Globulin Ratio Triglycerides Cholesterol LDL Cholesterol, Calc VLDL Cholesterol, Calc HDL Cholesterol Cholesterol/HDL Ratio Lipase TSH Adenovirus (PCR) B. pertussis DNA (PCR) B.parapertussis DNA PCR C. pneumoniae DNA (PCR) Coronavirus OC43 (PCR) Coronavirus HKU1 (PCR) Coronavirus 229E (PCR) SARS-CoV-2 (PCR) Coronavirus NL63 (PCR) Human Metapneumovir PCR Influenza Type A (PCR) Influenza Type B (PCR) M. pneumoniae (PCR) Parainfluenza 1 (PCR) Parainfluenza 2 (PCR) Parainfluenza 3 (PCR) Parainfluenza 4 (PCR) RSV (PCR) Entero/Rhino (PCR) Diagnostic Findings Chest X-Ray 04/07/24 12:12 XR chest 1V portable HISTORY: 64 years-old Male dizziness COMPARISON: None TECHNIQUE: AP view of the chest FINDINGS: Cardiac silhouette is upper limits of normal in size. Cervical spinal fusion woods rdware. No pneumothorax, pleural effusion or airspace consolidation. Chronic appearing mid right clavicular fracture deformity. Age-indeterminate widening of the left AC joint, also likely chronic. IMPRESSION: No acute process. ACT 112: Negative or not required by law. The above report was generated using voice recognition software. It may contain grammatical, syntax or spelling errors. Electronically signed by: Jesus Alberto Palmer M.D. 04/07/2024 12:[address] 04/07/24 13:48 CT OF THE HEAD WITHOUT CONTRAST CLINICAL HISTORY: Vertigo. COMPARISON STUDY: No previous studies for comparison. CT DOSE: 1697.69 mGy.cm TECHNIQUE: Helical axial images of the head were obtained without IV contrast. Automated exposure control was utilized for the study. A dose lowering technique was utilized adhering to the principles of ALARA. FINDINGS: No acute intracranial hemorrhage, midline shift or mass effect is present. The ventricular system is unremarkable. The basal cisterns are patent. A 1.3 cm hypodense focus within the left basal ganglia is present. No extra- axial collections are present. There are no findings to suggest acute dural s inus thrombosis or acute territorial infarct. No significant calvarial abnormalities are present. Visualized portions of the sinuses and mastoid air cells are clear. IMPRESSION: 1. No acute intracranial findings. 2. 1.3 cm hypodense focus within the left basal ganglia. This is likely chronic and could represent a prominent perivascular space or small old infarct. ACT 112: Negative or not required by law. Electronically signed by: Tobi Acuña M.D. 04/07/2024 3:51 PM Head CTA 04/07/24 13:48 CT angio head w con CLINICAL HISTORY: 64 years-old Male with vertigo. Acute vertigo COMPARISON STUDY: Head CT of same day TECHNIQUE: Following, following the IV administration of 119 cc of Optiray, CT angiogram of the brain was performed from the skull base to the vertex. Images are reviewed in the axial, sagittal, and coronal planes. 3-D MIPS images are created and assessed. IV contrast was administered without complication. All measurements were obtained according to NASCET criteria. A dose lowering technique was utilized adhering to the principles of ALARA. FINDINGS: CT ANGIOGRAM OF THE BRAIN: There is moderate atherosclerosis of the cavernous and clinoid segments of the internal carotid arteries without significant stenosis. The bilateral anterior and middle cerebral arteries are also patent. The vertebrobasilar system and posterior cerebral arteries are widely patent. There is no aneurysm, high-grade stenosis, or proximal branch occlusion identified. Dural sinuses appear patent. Extra-axial 1.2 cm calcification noted along the inner table of the skull adjacent to the superior right frontal lobe. Moderate mucosal thickening of the inferior right maxillary sinus. Cervical spinal fusion hardware. IMPRESSION: Unremarkable CTA of the head. ACT 112: Negative or not required by law. The above report was generated using voice recognition software. It may contain grammatical, syntax or spelling errors. Electronically signed by: Jesus Alberto Palmer M.D. 04/07/2024 4:04 PM Neck CTA 04/07/24 13:48 CT ANGIOGRAPHY OF THE NECK WITH CONTRAST CLINICAL HISTORY: Vertigo. COMPARISON STUDY: No previous studies for comparison. Technique: CT angiography of the carotid and vertebral arteries was obtained using Optiray and 3D reconstruction on an independent workstation. NASCET criteria was utilized. Automated exposure control was utilized for the study. A dose lowering technique was utilized adhering to the principles of ALARA. Findings: Visualized portions of the lung apices are unremarkable. There are no cervical spine fractures. Postoperative findings within the cervical spine are noted. The bilateral common carotid and cervical internal carotid arteries are patent. There is mild plaque within the left carotid bifurcation without stenosis. There is no aneurysm or dissection within the neck. The right vertebral artery is patent. The origin of the left vertebral artery is suboptimally assessed due to artifact however there is tortuosity with suspected moderate narrowing at the origin of the left vertebral artery. There is no dissection within the vertebral arteries. IMPRESSION: 1. No stenoses within the bilateral common carotid or cervical internal carotid arteries. 2. Suspected moderate stenosis at the origin of the left vertebral artery, suboptimally assessed due to artifact. ACT 112: Negative or not required by law. Electronically signed by: Tobi Acuña M.D. 04/07/2024 4:08 PM Brain MRI 04/07/24 22:16 Exam(s): MRI HEAD Without Contrast EXAM: MR Head Without Intravenous Contrast CLINICAL HISTORY: Reason for exam: r/o stroke. TECHNIQUE: Magnetic resonance images of the head/brain without intravenous contrast in multiple planes. COMPARISON: No relevant prior studies available. FINDINGS: Brain: Mild nonspecific white matter changes. No mass. No hemorrhage. No acute infarct. The flow voids at the base of the brain are intact. Ventricles: Unremarkable. No ventriculomegaly. Bones/joints: Unremarkable. No acute fracture. Sinuses: Chronic right maxillary and ethmoid sinusitis. No acute sinusitis. Mastoid air cells: Unremarkable as visualized. No mastoid effusion. Orbits: Unremarkable as visualized. IMPRESSION: No evidence of acute intracranial pathology. Electronically signed by: Katie Whitten MD 04/08/24 01:34 AM
[2024-04-08 11:43] VITALS: BP 136/77; RESP 19; TEMP 98.4; O2SAT 94
[2024-04-08] MEDS ORDERED: STROKE PATIENT DISCHARGE STA (12:52)
--- NOTE | 2024-04-08 12:56 | Discharge Summary ---
Discharge Summary Date of Service April 08, 2024 Principal Dx & Hospital Course #1 = Principal Diagnosis (1) Peripheral vertigo, unspecified: Suspect BPPV versus vestibular neuronitis (2) Type 2 diabetes mellitus: (3) HTN (hypertension): Plan Patient presented to the emergency room with acute onset of vertigo. In the emergency room initial head CT was questionable for a atypical finding. There was no large vessel occlusion on CTA. Due to his symptoms was referred for admission. Patient was admitted to a monitored setting. There is no significant arrhythmias on telemetry monitoring. MRI of the brain showed no significant abnormalities, specifically no tumor, specifically no evidence of acute infarction. Acute stroke ruled out. Neurology consultation was obtained. Determined to be a vestibular neuronitis. Patient symptoms very consistent with benign positional vertigo with more severe symptoms when he changes positions or rotates his head [id number]. Patient did respond to meclizine with improvement of his symptoms. Continue this. Also will have vestibular training with physical therapy. He will continue his other outpatient medications. Be discharged home to follow-up with his PCP. Notes For Next Care Provider Medication Changes From Visit Juhi for vertigo Admission HPI Per Admitting Provider Patient is 64-year-old male with PMH insulin dependent DM II, HTN, HLD, BPH presented to ER with c/o dizziness x 1 day. Patient states yesterday afternoon started noticing some dizziness which he describes as sensation that room is moving [id number] and he feels off balance. It is associated with nausea and dry heaves. Dizziness seems to occur with looking left and right. Denies any fall. Denies any head injury. He reports approximately 1 month ago had nasal congestion, rhinorrhea, ear fullness and had slight dizzy sensation at that time which had resolved after resolution of his URI symptoms. Denies any chest pain, palpitations, syncope, vision changes, speech changes, facial drooping, extremi ty paresthesias, fever/chills, constipation, new onset diarrhea, SARKAR, syncope, neck pain, SOB, cough, sore throat, otalgia, ear discharge, current rhinorrhea, abdominal pain, paresthesias, extremity weakness, extremity edema, rashes, urinary symptoms. Admission Exam Per Admitting Provider See H&P Discharge Exam Constitutional: Alert HEENT: Mucous membranes moist. Lungs: Clear to auscultation, decreased, no wheezes rales or rhonchi CV: S1-S2, regular Abdomen: Soft, nontender, nondistended Extremities: No significant edema Neuro: No focal deficits, some nystagmus with head rotation Psych: Cooperative, normal mood Updated Medication List Medication Instructions Recorded Confirmed Type aspirin 81 mg tablet,delayed 81 mg PO DAILY 04/07/24 04/07/24 History release atorvastatin 40 mg tablet 40 mg PO QAM 04/07/24 04/07/24 History dulaglutide 4.5 mg/0.5 mL 4.5 mg subcut WK 04/07/24 04/07/24 History subcutaneous pen injector (Trulicity) famotidine 20 mg tablet 20 mg PO BID PRN heart burn 04/07/24 04/07/24 History glipizide 10 mg tablet, extended 10 mg PO BID 04/07/24 04/07/24 History release 24 hr hydrochlorothiazide 25 mg tablet 25 mg PO QAM 04/07/24 04/07/24 History hydrocodone 7.5 mg-acetaminophen 1 tab PO Q6H PRN Pain 04/07/24 04/07/24 History 325 mg tablet insulin glargine 100 unit/mL (3 40 - 45 unit subcut UD 04/07/24 04/07/24 History mL) subcutaneous pen (Lantus Solostar U-100 Insulin) lisinopril 10 mg tablet 10 mg PO QAM 04/07/24 04/07/24 History metformin 500 mg tablet,extended 1,000 mg PO BID 04/07/24 04/07/24 History release 24 hr tamsulosin 0.4 mg capsule 0.4 mg PO QAM 04/07/24 04/07/24 History meclizine 25 mg tablet 25 mg PO TID PRN dizziness #30 tabs 04/08/24 Rx Hospital Stay Data Consultations 04/07/24 22:16 Consult Neurology Routine Diagnostic Imagining Performed 04/07/24 13:48 CT angio head w con Stat CT angio neck with con Stat CT head/brain wo con Stat 04/07/24 22:16 MR brain wo con Routine Reviewed imaging, laboratory and diagnostic studies. Pertinent findings as below.WBCs 12.4 Hemoglobin 12.1 Electrolytes stable Creatinine 0.86 Hemoglobin A1c 7.1% MRI of the brain shows no evidence of acute abnormalities, no infarct Pending Results Patient Have Any Pending Studies at Discharge: No Discharge Instructions Given to Patient (Per Discharging Provider) Would recommend taking meclizine 3 times daily for the next 3 to 4 days then can take as needed Consider ongoing outpatient therapies for vestibular training Total Time Total Time Spent Total Time Spent (In Minutes): 25
[2024-04-08 14:28] VITALS: PULSE 84
--- OUTSIDE RECORDS SUMMARY | 2024-04-08 23:43 | External Medical Summary | Summary of Care ---
Author Name Unknown Organization [facility] Address [address] [place] [address] Phone [phone] Care Team Providers Care Binder Stripper Hand Name Role Phone Rashaun Knutson MD Primary Care Provider [phone] Reason for Referral * Evaluate & Treat - Unlimited Visits (Within 10 days (routine)) - Authorized Specialty Diagnoses / Procedures Referred By Contac t Referred To Contact Pharmacist / Pharmacy Diagnoses Type 2 diabetes mellitus with hemoglobin A1c goal of less than or equal to 9.0% ([facility]) Rashaun Knutson MD [address] [place] [id number] Referral ID Status Reason Start Date Expiration Date Visits Requested Visits Authorized [id number] Authorized Specialty Services Required 4 09/08/2024 99 99 Question Answer Referral Priority Within 10 days (routine) Where should this appointment be scheduled? [facility] Referring Provider Role: Primary Care Reason for Referral: DM Target A1c: < 8 Comments Pharmacist Medication Therapy Management: Minimum frequency patient should be seen in person for medication management: as appropriate per clinical condition and patient status By my signature, I understand that my patient Marquez Casanova Sr. will have his medication therapy managed by the [facility] ([facility]) per established policies, procedures, and protocols. I also certify that this referral may serve as an initiation of service for the management of drug therapy in the above noted patient. [facility] providers will be responsible for scheduling patient visits, obtaining appropriate laboratory studies, and adjusting medication management therapy per patient's need, in addition to those roles spelled out in the clinic policy, procedures, and drug management protocols. I understand that the service provided by the [facility] is voluntary and have informed patient that they can refuse the service at their discretion. I am aware that the [facility] Clinic will provide me with a copy of the patient encounter via my [employer]. I authorize the [facility] to carry out these activities on my behalf. I consider this program to be a necessary part of the patient's medical care. Rashaun Knutson MD Reason for Visit * Reason Comments Outpatient Testing Encounter Details Date Type Department Care Team (Late st Contact Info) Description 01/30/2024 11:00 AM EDT Laboratory Laboratory Patient [facility] [place], [address] [phone] [address] Type 2 diabetes mellitus with hemoglobin A1c goal of less than or equal to 9.0% ([facility]); Other custodial (current) drug therapy; Intervertebral disc disorders with radiculopathy, lumbar region Allergies No known active allergiesdocumented as of this encounter (statuses as of 03/12/2024) Medications Medication Sig Dispensed Refills Start Date End Date Status OneTouch Delica Lancets 33G Use to check blood sugar once daily Dx E11.9 - ok to substitute brand and supplies insurance covers 100 Each 3 03/20/20 20 Active OneTouch Verio In Vitro Strip (Glucose Blood) Use to check blood sugar once daily Dx E11.9 - ok to substitute brand and supplies insurance covers 100 Strip 3 03/20/20 20 Active OneTouch Verio w/Device Kit Use to check blood sugar once daily Dx E11.9 - ok to substitute brand and supplies insurance covers 1 Kit 03/20/20 20 Active Aspirin 81 MG Oral TabletIndication s:DM type 2 nursing care encounter (HCC) Take 1 Tab by mouth daily. 30 Tab 10/05/19 21 Active Vitamin D (Ergocalciferol) 1.25 MG (51490 UT) Oral Capsule Take 1 Cap by mouth once a week. 12 Cap 3 03/14/20 21 Active BD Pen Needle Kavita 2nd Gen 32G X 4 MM (Insulin Pen Needle)Indicatio ns:Type 2 diabetes mellitus with hemoglobin A1c goal of less than 8.5% ([facility]) USE WITH SOLARSTAR PEN 100 Each 2 03/28/20 23 Active predniSONE 20 MG Oral Tablet (Deltasone)Indic ations:Bronchiti s, complicated Take 2 tabs for 3 days, 1 tab for 3 days, 1/2 tab for 3 days 11 Tablet 06/23/19 24 Active Lisinopril 10 MG Oral Tablet (Prinivil)Indica tions:HTN, goal below 140/90 Take 1 Tablet by mouth in the morning. 90 Tablet 3 10/28/19 24 Active hydroCHLOROthiaz kathleen 25 MG Oral Tablet (Hydrodiuril)Ind ications:HTN, goal below 140/90 Take 1 Tablet by mouth in the morning. 90 Tablet 3 10/28/19 24 Active glipiZIDE ER 10 MG Oral Tablet Extended Release 24 Hour (glipiZIDE XL) Take 2 Tablets by mouth in the morning. 200 Tablet 3 11/04/19 24 Active Insulin Glargine Solostar 100 UNIT/ML Subcutaneous Solution Pen-injector (Lantus SoloStar)Indicat ions:Type 2 diabetes mellitus with hemoglobin A1c goal of less than or equal to 9.0% ([facility]) INJECT 45 UNITS SUBCUTANEOUSLY IN THE MORNING AND 40 UNITS AT NIGHT DX E11.9 - please fill edie 90 mL 3 12/10/19 24 Active Tamsulosin HCl 0.4 MG Oral Capsule (Flomax)Indicati ons:BPH with obstruction/lowe r urinary tract symptoms Take 1 capsule by mouth in the morning 90 Capsule 1 12/22/19 24 Active Atorvastatin Calcium 40 MG Oral Tablet (Lipitor)Indicat ions:Type 2 diabetes mellitus with hemoglobin A1c goal of less than or equal to 9.0% ([facility]) TAKE 1 TABLET BY MOUTH IN THE MORNING 90 Tablet 1 12/22/19 24 Active Famotidine 20 MG Oral Tablet (Pepcid)Indicati ons:Abdominal pain, epigastric TAKE 1 TABLET BY MOUTH TWICE DAILY NEEDED FOR HEARTBURN . 180 Tablet 1 01/12/20 24 Active Trulicity 3 MG/0.5ML Subcutaneous Solution Pen-injector (Dulaglutide) Inject 3 mg under the skin once a week. Dose reduction from Trulicity 4.5mg due to back order 6 mL 2 06/13/19 23 024 Discontinued(Me dication/Dose Changed) Trulicity 4.5 MG/0.5ML Subcutaneous Solution Pen-injector (Dulaglutide) Inject 4.5 mg under the skin once a week. 6 mL 3 03/12/20 23 024 Discontinued(Re fill) HYDROcodone-Acet aminophen 7.5-325 MG Oral TabletIndication s:Disc disorder of lumbar region,MEDICATIO N USE AGREEMENT Take 1 Tablet by mouth every 6 hours as needed (as needed). 1 pill every 6 hours as needed for pain. 120 Tablet 11/05/19 24 024 Discontinued(Re fill) metFORMIN HCl ER 500 MG Oral Tablet Extended Release 24 Hour (Glucophage XR)Indications:T ype 2 diabetes mellitus with hemoglobin A1c goal of less than or equal to 9.0% (HCC) TAKE 2 TABLETS BY MOUTH WITH BREAKFAST AND WITH DINNER 360 Tablet 11/14/19 24 024 Discontinued documented as of this encounter (statuses as of 03/12/2024) Active Problems Problem Noted Date Diagnosed Date Type 2 diabetes mellitus wit h hemoglobin A1c goal of less than or equal to 9.0% 05/01/2017 MEDICATION USE AGREEMENT 05/01/2017 Never smoked tobacco 10/18/2016 HTN, goal below 140/90 11/09/2013 Disc disorder of lumbar region 05/03/2010 Impotence of organic origin 04/01/2007 ADVANCE DIRECTIVE INFORMATION 04/03/2006 Overview: Booklet given to pt today. 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 05/01/2017 06/23/2023 Severe obesity with body mas s index (BMI) of 35.0 to 39.9 with serious comorbidity 01/23/2017 Overview: ICD-10 update of inactive diagnosis Type 2 diabetes mellitus wit h hemoglobin A1c goal of less than 8.5% 11/08/2015 05/01/2017 BMI 40.0-44.9, adult 09/03/2012 017 Type 2 diabetes mellitus wit h hemoglobin A1c goal of 7.0%-8.0% 05/05/2012 11/08/2015 Overview: ICD-10 update of inactive term Obesity, morbid (more than 1 00 lbs over ideal weight or BMI > 40) 10/31/2009 04/03/2018 Overview: Per Obesity Protocol, #19 ICD-10 update of inactive term Type 2 diabetes mellitus wit h hemoglobin A1c goal of less than 7.0% 03/16/2009 05/05/2012 Overview: Per Diabetes Taxonomy. Diabetes Type II, Controlled ICD-10 update of inactive term DM type 2, not at goal 12/04/200504/03 Type 2 diabetes mellitus wit h hemoglobin A1c goal of less than 7.0% 03/16/2009 Overview: Per Diabetes Taxonomy. Diabetes Type II, Controlled ICD-10 update of inactive term documented as of this encounter (statuses as of 03/12/2024) Immunizations Name Administration Dates Next Due COVID-19 mRNA, LNP-s, No Pre serve, 2-Dose Series ([employer]) 02/13/2021,06/14/2020,05/24/2020 COVID-19, MRNA-LNP, 23-24, P F, 30 MCG/0.3 mL, 12 YRS AND ABOVE, IM (PFIZER-Comirnaty) 02/11/2023 COVID-19, MRNA-LNP, 23-24, P F, 50 MCG/0.5 mL, 12 YRS AND ABOVE, IM (MODERNA-Spikevax) 02/11/2023 COVID-19, MRNA-LNP, 24-25, P R, 30MCG/0.3ML, IM, 12YRS AND ABOVE ([employer]-Comirnaty) 01/30/2024 Covid-19, Mrna, Lnp-s, Pf, B ivalent, 30 Mcg, IM, 12 yrs and above (Pfizer) 02/11/2022 H1N1 2009 Influenza, IM 03/19/2009 Hepatitis B, 20+ yrs 05/01/2017,11/20/2016,10/18 Pneumococcal Conjugate Vacc, 13 Valent (Prevnar) 02/15/2019,11/08/2015 Pneumococcal Conjugate Vacci ne, 20-valent ([id number]) 01/16/2024 Pneumococcal Polysaccharide PPV23 (Pneumovax) 04/03/2006 Seasonal Influenza Vac., MDV , IM, 0.5 mL (Fluzone) 2015,02/11/2014,04/15/2013,01/17,03/19/2011,02/27/2010,02/15/20 09,03/23/2008,04/01/2007,04/03/2006 03/19/2012 Seasonal Influenza, PF, 6 M & above, IM , (FluLaval or Fluzone) 01/20/2024,02/11/2022,01/24/2021,07/2017 Seasonal Influenza, Quadriva lent, No Preserve, IM 01/23/2020,02/15/2019,02/03/2018,01/18 Seasonal Influenza, Quadriva lent, No Preserve, Mdck 01/23/2017 Seasonal Influenza, Recombin ant, RIV4, PF, (Flublock) 01/09/2023 TDAP (age 10 and older)(Boostrix) 02/11/2022,04/2012 Zoster Vaccine Recombinant (Shingrix) 01/14/2018 ,10/14/2017 documented as of this encounter Social History Tobacco Use Types Packs/Day Years Used Date Smoking Tobacco: Never Smokeless Tobacco: Never Alcohol Use Standard Drinks/Week Comments Yes 0 (1 standard drink = 0.6 oz pur e alcohol) rare beer PHQ-2 Answer Date Recorded PHQ Adult Total Score 0 02/11/2022 Hunger Vital Sign Answer Date Recorded Within the past 12 months, y ou worried that your food would run out before you got the money to buy more. Never true 06/23/19 24 Within the past 12 months, t he food you bought just didn't last and you didn't have money to get more. Never true 06/23/2023 Childcare Answer Date Recorded Do you feel overwhelmed with taking care of a child, family member or friend? No 06/23/2023 Does your family need help f inding childcare? (Household - for ages 0-17 years) Not on file 06/23/2023 Clothing Answer Date Recorded Have you been unable to get clothing when it was really needed? No 06/23/2023 Is your family able to get c lothes or diapers when needed? (Household - for ages 0-17 years) Not on file 06/23/2023 Personal Safety Answer Date Recorded Do you feel unsafe or have concerns for your saf ety? No 06/23/2023 Do you have concerns for you r family's safety? (Household - for ages 0-17 years) Not on file 06/23/2023 Utilities Answer Date Recorded Do you have trouble paying y our heating, water, or electric bill? No 06/23/2023 Is your family able to pay t he heat, water, or electric bill? (Household - for ages 0-17 years) Not on file 06/23/2023 Does your family have access to good internet? (Household - for ages 0-17 years) Not on file 06/23/2023 Employment Status Answer Date Recorded Are you unemployed or without regular income? Ye s 06/23/2023 Does the household have a re gular source of income? (Household - for ages 0-17 years) Not on file 06/23/2023 Social Connections Answer Date Recorded How often do you feel lonely or isolated from those around you? Sometimes 06/23/2023 Financial Resource Strain Answer Date R ecorded Do you have any trouble payi ng for your medications, or do you think you might in the future? No 06/23/2023 Does your family have troubl e paying for medicine? (Household - for ages 0-17 years) Not on file 06/23/2023 Transportation Needs Answer Date Record ed READ ONLY Do you have troubl e getting a ride to medical visits or work? Sometimes True 06/23/2023 Does your family have a hard time getting a ride to doctors visits? (Household - for ages 0-17 years) Not on file 06/23/2023 Has lack of transportation k ept you from medical appointments, meetings, work, or from getting things needed for daily living? Check all that apply. (Adult - for ages 18 years and over) Not on file 06/23/2023 Do you (or your family) have trouble finding or paying for a ride (transportation)? (Household - for ages 0-17 years) Not on file 06/23/2023 Housing Stability Answer Date Recorded Do you currently live in a s helter or have no steady place to sleep at night? Yes 06/23/2023 READ ONLY Do you think you a re at risk of becoming homeless? No 06/23/2023 Does your family worry about paying for your home or becoming homeless? (Household - for ages 0-17 years) Not on file 0 06/23/2023 Are you homeless or worried that you might be in the future? (Adult - for ages 18 years and over) Not on file Are you (or your family) manny eless or worried that you might be in the future? (Household - for ages 0-17 years) Not on file Food Insecurity Answer Date Recorded Do you need food for this week? No 06/23/2023 Are you able to get enough f ood for your family? (Household - for ages 0-17 years) Not on file 06/23/2023 Does your family need food t his week? (Household - for ages 0-17 years) Not on file 06/23/2023 Do you always have enough fo od for your family? (Household - for ages 0-17 years) Not on file 06/23/2023 Sex and Gender Information Value Date Recorded Sex Assigned at Not on file Gender Identity Male 06/23/2023 3:30 PM EST Sexual Orientation Not on file Job Start Date Occupation Industry Not on file Not on file Not on file documented as of this encounter Miscellaneous Notes * Addendum Note - Rashaun Knutson MD - 03/12/2024 3:12 PM EDTAddended by: RASHAUN KNUTSON on: 03/12/2024 03:12 PM Modules accepted: Orders documented in this encounter Plan of Treatment Upcoming Encounters Date Type Department Care Team (Late st Contact Info) Description 07/19/2024 12:00 PM EST Office Visit [facility] [address] [place] [address] Rashaun Knutson MD [address] [place] [id number] Scheduled Referrals Name Type Priority Associated Diagnoses Orde r Schedule PHARMACIST MEDS THERAPY MGMT REFERRAL OP Referral Within 10 days (routine) Type 2 diabetes mellitus with hemoglobin A1c goal of less than or equal to 9.0% (HCC) Ordered: 03/12/2024 Health Maintenance Due Date Last Done Comments Colonoscopy 2003 Fecal Occult Blood Test 2003 Sigmoidoscopy 2003 Depression Screening 02/11/2023 02/11/2022 Diabetic Eye Exam 12/28/2023 12/27/2022, , 06/12/2020, Additional history exists Adult Wellness Visit 02/08/2024 HbA1c 07/29/2024 01/30/2024, 11/0 10/2022, 09/06/2022, Additional history exists Albumin/Creatinine Ratio 01/29/2025 024, 03/24/2023, 02/04/2022, Additional history exists B-12 01/29/2025 01/30/2024, 11/0 10/2022, 02/04/2022, Additional history exists Diabetic Foot Exam 01/29/2025 01/30/2024, 0 07/12/2021, 06/12/2020, Additional history exists GFR 01/29/2025 01/30/2024, 11/0 10/2022, 02/04/2022, Additional history exists Cologuard 2027 02/08/2024, 08/26/2017 Colorectal Cancer Screening 2027 Lipid Panel 01/29/2029 01/30/2024, 11/0 10/2022, 07/06/2021, Additional history exists DTap/Tdap Vaccines (3 - Td or Tdap) 02/12/2032 02/11/2022, 01/29/2012 Hepatitis C Screening Completed 10/15/2016 Hepatitis B Vaccine Completed 05/01/2017, 11/20/2016, 10/18/2016 Zoster Vaccines Completed 01/14/2018, 10/14/2017 Pneumococcal Vaccine: 65+ Years Completed 01/16/2024, 02/15/2019, 11/08/2015, Additional history exists Influenza Vaccine (FLU shot) Completed 07/2023, 01/09/2023, 02/11/2022, Additional history exists COVID-19 Vaccine Completed 01/30/2024, , 02/11/2023, Additional history exists HPV (Gardasil) Vaccine Aged Out No lo nger eligible based on patient's age to complete this topic MENINGOCOCCAL (MENACTRA/MENVEO) Aged Out No longer eligible based on patient's age to complete this topic documented as of this encounter Medical Devices Not on filedocumented as of this encounter Procedures Procedure Name Priority Date/Time Associated Diagnosis Comments DIFFERENTIAL, AUTOMATED Routine 01/30/20 10:39 AM EDT Type 2 diabetes mellitus with hemoglobin A1c goal of less than or equal to 9.0% (HCC) HYDROCODONE, URINE CONFIRMATION Routine 01/30/2024 10:39 AM EDT Intervertebral disc disorders with radiculopathy, lumbar region PAIN MANAGEMENT DRUG PANEL, URINE W/ INTERPRETATION Routine 01/30/2024 10:39 AM EDT Intervertebral disc disorders with radiculopathy, lumbar region LIPID PANEL WITH DIRECT LDL IF TG IS HIGH Routine 01/30/2024 10:39 AM EDT Type 2 diabetes mellitus with hemoglobin A1c goal of less than or equal to 9.0% (HCC) 25-HYDROXY VITAMIN D Routine 01/30/2024 10:39 AM EDT Type 2 diabetes mellitus with hemoglobin A1c goal of less than or equal to 9.0% (HCC) Other joint terminal attack controller (current) drug therapy HEMOGLOBIN A1C Routine 01/30/2024 10:39 AM EDT Type 2 diabetes mellitus with hemoglobin A1c goal of less than or equal to 9.0% (HCC) COMPREHENSIVE METABOLIC PANEL Routine 01/30/2024 10:39 AM EDT Type 2 diabetes mellitus with hemoglobin A1c goal of less than or equal to 9.0% (HCC) CBC Routine 01/30/2024 10:39 AM EDT Type 2 diabetes mellitus with hemoglobin A1c goal of less than or equal to 9.0% (HCC) ALBUMIN / CREATININE RATIO, URINE Routine 01/30/2024 10:39 AM EDT Type 2 diabetes mellitus with hemoglobin A1c goal of less than or equal to 9.0% (HCC) CBC Routine 01/30/2024 10:39 AM EDT Type 2 diabetes mellitus with hemoglobin A1c goal of less than or equal to 9.0% (HCC) VITAMIN B12 Routine 01/30/2024 10:39 AM EDT Type 2 diabetes mellitus with hemoglobin A1c goal of less than or equal to 9.0% (HCC) Other joint terminal attack controller (current) drug therapy documented in this encounter Results * HYDROCODONE / HYDROMORPHONE, URINE CONFIRMATION (01/30/2024 10:39 AM EDT) [facility] Methodology LC-MS/MS 02/05/2024 1:24 PM EDT LABORATORY [facility] Hydrocodone Confirmation, U Negative Negative 02/05/2024 1:24 PM EDT LABORATORY [facility] Hydromorphone Confirmation, U Negative Negative 02/05/2024 1:24 PM EDT LABORATORY [facility] Dihydrocodeine Confirmation, U Negative Negative 02/05/2024 1:24 PM EDT LABORATORY [facility] Urine Urine specimen obtained by clean catch procedure / Unknown Non-blood Collection / Unknown 01/30/2024 10:39 AM EDT 01/30/2024 10:39 AM EDT [facility] LABORATORY [facility] - 02/05/2024 1:24 PM EDT Cutoff Concentrations: Drug Level Hydrocodone 40 ng/mL Hydromorphone 40 ng/mL Dihydrocodeine 40 ng/mL This test was developed and its performance characteristics determined by [facility]. It has not been cleared or approved by the [place] Food and Drug Administration. Rashaun Knutson MD LAB URINE ORDERABLES LABORATORY [facility] [address] [place] [address] * DIFFERENTIAL, AUTOMATED (01/30/2024 10:39 AM EDT) WBC 9.89 4.00 - 10.80 K/uL 01/30/2024 5:29 PM EDT LAB[facility]ORY [facility] Neutrophils % 62.1 40.0 - 75.0 % 01/30/2024 5:29 PM EDT LAB[facility] Lymphocytes % 29.9 18.0 - 42.0 % 01/30/2024 5:29 PM EDT [facility] Monocytes % 6.6 1.0 - 11.0 % 01/30/2024 5:29 PM EDT [facility] Eosinophils % 0.9 0.0 - 6.0 % 01/30/2024 5:29 PM EDT [facility] Basophils % 0.2 0.0 - 2.0 % 01/30/2024 5:29 PM EDT [facility] Immature Granulocytes % 0.3 0.0 - 2.0 % 01/30/2024 5:29 PM EDT LAB[facility] Absolute Neutrophils 6.14 1.80 - 7.70 K/uL 01/30/2024 5:29 PM EDT LAB[facility] Absolute Lymphocytes 2.96 1.00 - 4.80 K/ul 01/30/2024 5:29 PM EDT LAB[facility] Absolute Monocytes 0.65 0.00 - 1.10 K/uL 01/30/2024 5:29 PM EDT LAB[facility] Absolute Eosinophils 0.09 0.00 - 0.70 K/uL 01/30/2024 5:29 PM EDT LAB[facility] Absolute Basophils 0.02 0.00 - 0.20 K/uL 01/30/2024 5:29 PM EDT LAB[facility] Absolute Immature Granulocytes 0.03 0.00 - 0.20 K/uL 01/30/2024 5:29 PM EDT LAB[facility] Blood Venous blood specimen / Unknown Venipuncture / Unknown 01/30/2024 10:39 AM EDT 01/30/2024 10:39 AM EDT Rashaun Knutson MD LAB BLOOD ORDERABLES LAB[facility] [address] [place] [address] * (ABNORMAL) CBC (01/30/2024 10:39 AM EDT) WBC 9.89 4.00 - 10.80 K/uL 01/30/2024 5:29 PM EDT LAB[facility] RBC 4.35 4.50 - 5.25 M/uL 01/30/2024 5:29 PM EDT LAB[facility] HGB 13.4(L) 14.0 - 16.8 g/dL 01/30/2024 5:29 PM EDT LAB[facility] HCT 39.4(L) 40.0 - 48.4 % 01/30/2024 5:29 PM EDT LAB[facility] MCV 90.6 82.0 - 99.5 fL 01/30/2024 5:29 PM EDT LAB[facility] MCH 30.8 27.0 - 34.0 pg 01/30/2024 5:29 PM EDT [facility] MCHC 34.0 32.0 - 36.0 g/dL 01/30/2024 5:29 PM EDT [facility] RDW 13.2 11.5 - 15.5 % 01/30/2024 5:29 PM EDT [facility] PLT 189 140 - 400 K/uL 01/30/2024 5:29 PM EDT [facility] MPV 10.4 6.6 - 11.1 fL 01/30/2024 5:29 PM EDT [facility] nRBCs 0 <=0 /100 WBCs 01/30/2024 5:29 PM EDT [facility] Blood Venous blood specimen / Unknown Venipuncture / Unknown 01/30/2024 10:39 AM EDT 01/30/2024 10:39 AM EDT Rashaun Knutson MD LAB BLOOD ORDERABLES [facility] [address] [place] [address] * (ABNORMAL) PAIN MANAGEMENT DRUG PANEL, URINE W/ INTERPRETATION (01/30/2024 10:39 AM EDT) Compliance Interpretation Based on the medication information provided: The absence of hydrocodone could be due to intermittent hydrocodone use. 02/05/2024 4:27 PM EDT LABORATORY [facility] Comment:Changed Report: Prev iously reported on 02/02/2024 at 0923 EDT. See Results History in [facility] for previous versions of the report. Amphetamines Screen, U Negative Negative 02/05/2024 4:27 PM EDT LABORATORY C Benzodiazepines Screen, U Negative Negative 02/05/2024 4:27 PM EDT LABORATORY C Cannabinoids Screen, U Negative Negative 02/05/2024 4:27 PM EDT LABORATORY C Cocaine Metabolite Screen, U Negative Negative 02/05/2024 4:27 PM EDT LABORATORY C Fentanyl Screen, U Negative Negative 2023 4:27 PM EDT LABORATORY [facility] Hydrocodone Screen, U Refer to confirmation results(A) Negative 02/05/2024 4:27 PM EDT LABORATORY [facility] Methadone Metabolite Screen, U Negative Negative 02/05/2024 4:27 PM EDT LABORATORY C Morphine/Codeine Screen, U Negative Negative 02/05/2024 4:27 PM EDT LABORATORY C Oxycodone Screen, U Negative Negative 02/05/2024 4:27 PM EDT LABORATORY [facility] Valid Interpretation Normal 02/05/2024 4:27 PM EDT LABORATORY [facility] Creatinine, U 189 mg/dL 02/05/2024 4:27 PM EDT LABORATORY [facility] Urine Urine specimen obtained by clean catch procedure / Unknown Non-blood Collection / Unknown 01/30/2024 10:39 AM EDT 01/30/2024 10:39 AM EDT Narrative LAB[facility]ATORY [facility] - 02/05/2024 4:27 PM EDT Cutoff Concentrations: Drug Level Amphetamines 500 ng/mL Benzodiazepines 100 ng/mL Cannabinoids 50 ng/mL Cocaine Metabolite 150 ng/mL Fentanyl 1 ng/mL Hydrocodone / Hydromorphone 300 ng/mL Methadone Metabolite 100 ng/mL Morphine / Codeine 300 ng/mL Oxycodone / Oxymorphone 100 ng/mL Screening results are presumptive and can only be used for medical purposes. Confirmatory testing is available upon request. Rashaun Knutson MD LAB URINE ORDERABLES Performing Organization Address [facility] Co de Phone Number LABORATORY [address] [address] * ALBUMIN / CREATININE RATIO, URINE (01/30/2024 10:39 AM EDT) Albumin, Random Urine 2.00 mg/dL 01/30/2024 7:38 PM EDT LABORATORY [facility] Creatinine, Random Urine 181 mg/dL 01/30/2024 7:38 PM EDT LABORATORY [facility] Albumin / Creatinine Ratio, Urine 11 <30 mg/g Creat 01/30/2024 7:38 PM EDT LABORATORY [facility] Urine Urine specimen obtained by clean catch procedure / Unknown Non-blood Collection / Unknown 01/30/2024 10:39 AM EDT 01/30/2024 10:39 AM EDT Narrative [facility]ATORY [facility] - 01/30/2024 7:38 PM EDT Normal: <30 mg/g creatinine High: 30-300 mg/g creatinine Very High: >300 mg/g creatinine Nephrotic: >2200 mg/g creatinine Rashaun Knutson MD LAB URINE ORDERABLES Performing Organization Address [facility] de Phone Number LABORATORY [address] [address] * (ABNORMAL) LIPID PANEL WITH DIRECT LDL IF TG IS HIGH (01/30/2024 10:39 AM EDT) Triglycerides 94 <=174 mg/dL 01/30/2024 8:24 PM EDT [facility] Comment: Triglyceride Reference Ranges (mg/dL): <150 Acceptable 150-174 Borderline high 175-499 High >=500 Very high Cholesterol 84 <200 mg/dL 01/30/2024 8:24 PM EDT [facility] Comment: Total Cholesterol Reference Ranges (mg/dL): <200 Desirable 200-239 Borderline high >=240 High HDL Cholesterol 33(L) >39 mg/dL 8:24 PM EDT LAB[facility]ATORY [facility] Comment: HDL Cholesterol Reference Ranges (mg/dL): >=60 High (Desirable) <50 Low (Undesirable) For Females <40 Low (Undesirable) For Males Non-HDL Cholesterol 51 <=159 mg/dL 01/30/2024 8:24 PM EDT LAB[facility]ORY [facility] Comment: Non-HDL Cholesterol Reference Range (mg/dL): <100 Target level for high risk ASCVD patient <130 Optimal for general population 130-159 Near optimal for general population 160-189 Borderline High 190-219 High >=220 Very High LDL Cholesterol 32 <=129 mg/dL 01/30/2024 8:24 PM EDT LAB[facility]ORY [facility] Comment: LDL Cholesterol Reference Ranges (mg/dL): <70 Target level for high risk ASCVD patient <100 Optimal for general population 100-129 Near optimal for general population 130-159 Borderline high 160-189 High >=190 Very high Blood Venous blood specimen / Unknown Venipuncture / Unknown 01/30/2024 10:39 AM EDT 01/30/2024 10:39 AM EDT Davion Lei [facility] LAB BLOOD ORDE LILIAM LAB[facility] [address] [place] [address] * (ABNORMAL) COMPREHENSIVE METABOLIC PANEL (01/30/2024 10:39 AM EDT) BUN 18 6 - 20 mg/dL 01/30/2024 8:24 PM EDT LAB[facility]ORY [facility] CREATININE 0.8 0.6 - 1.2 mg/dL 01/30/2024 8:24 PM EDT LAB[facility]ORY [facility] EGFR >90 >=60 mL/min 01/30/2024 8:24 PM EDT LAB[facility] Comment:eGFR is calculated b ased on the CKD-EPI 2020 equation. SODIUM 139 135 - 146 mmol/L 01/30/2024 8:24 PM EDT LAB[facility]ORY [facility] POTASSIUM 4.7 3.5 - 5.1 mmol/L 01/30/2024 8:24 PM EDT [facility]ORY [facility] CHLORIDE 99 98 - 107 mmol/L 01/30/2024 8:24 PM EDT LAB[facility]ORY [facility] CO2 28 22 - 32 mmol/L 01/30/2024 8:24 PM EDT LAB[facility]ORY [facility] ANION GAP 12 7 - 15 mmol/L 01/30/2024 8:24 PM EDT LAB[facility]ORY [facility] GLUCOSE 98 70 - 120 mg/dL 01/30/2024 8:24 PM EDT LAB[facility]ORY [facility] Albumin 4.5 3.8 - 5.0 g/dL 01/30/2024 8:24 PM EDT LAB[facility]ORY [facility] AST 43 10 - 50 U/L 01/30/2024 8:24 PM EDT LAB[facility]ATORY [facility] Alkaline Phosphatase 63 35 - 130 U/L 01/30/2024 8:24 PM EDT LAB[facility]ORY [facility] Bilirubin, Total 0.8 <=1.2 mg/dL 01/30/2024 8:24 PM EDT LAB[facility]ORY [facility] CALCIUM 9.7 8.4 - 10.2 mg/dL 01/30/2024 8:24 PM EDT [facility] Protein 7.1 6.0 - 8.3 g/dL 01/30/2024 8:24 PM EDT LAB[facility]ORY [facility] ALT 55(H) 10 - 50 U/L 01/30/2024 8:24 PM EDT [facility]ORY [facility] Blood Venous blood specimen / Unknown Venipuncture / Unknown 01/30/2024 10:39 AM EDT 01/30/2024 10:39 AM EDT Melanie Jacob [facility] LAB BLOOD ORDERA BLES [facility] [address] [place] [address] * (ABNORMAL) HEMOGLOBIN A1C (01/30/2024 10:39 AM EDT) Pathologist [facility] Hemoglobin A1C 8.1(H) 4.0 - 5.6 % 01/30/2024 8:25 PM EDT LAB[facility]ATORY [facility] Comment:The use of HbA1c to monitor glycemic status is based on normal hemoglobin and HbA composition. This test should not be used in patients with abnormal hemoglobin that affects the half life of the red blood cell or the in vivo glycation rates. Estimated Average Glucose 186(H) <126 mg/dL 01/30/2024 8:25 PM EDT [facility] Blood Venous blood specimen / Unknown Venipuncture / Unknown 01/30/2024 10:39 AM EDT 01/30/2024 10:39 AM EDT Melanie Jacob [facility] LAB BLOOD ORDERA BLES Performing Organization Address City/[facility]/ZIP Co de Phone Number LAB[facility]ATORY [facility] [address] [place] [address] * VITAMIN B12 (01/30/2024 10:39 AM EDT) Vitamin B12 276 232 - 1,245 pg/mL 01/30/2024 9:10 PM EDT [facility] Blood Venous blood specimen / Unknown Venipuncture / Unknown 01/30/2024 10:39 AM EDT 01/30/2024 10:39 AM EDT Melanie Bernstein [facility] LAB BLOOD ORDERA BLES Performing Organization Address [facility] de Phone Number LAB[facility]ATORY [facility] [address] [place] [address] * 25-HYDROXY VITAMIN D (01/30/2024 10:39 AM EDT) 25-Hydroxy Vitamin D 28 >19 ng/mL 01/30/2024 9:10 PM EDT LAB[facility]ORY [facility] Blood Venous blood specimen / Unknown Venipuncture / Unknown 01/30/2024 10:39 AM EDT 01/30/2024 10:39 AM EDT Narrative LABORATORY C - 01/30/2024 9:10 PM EDT Deficient: <20 ng/mL Insufficient: 20-29 ng/mL Recommended/Optimum:30-50 ng/mL Vitamin D intoxication is rare. If suspicious of Vitamin D toxicity, evaluation of serum Calcium and PTH is recommended. Melanie Jacob [facility] LAB BLOOD ORDERA BLES Performing Organization Address [facility] Co de Phone Number [facility]ORY [facility] [address] [place] [address] documented in this encounter Visit Diagnoses Diagnosis Type 2 diabetes mellitus with hemoglobin A1c goal of less than or equal to 9.0% (HCC) Other joint terminal attack controller (current) drug therapy Intervertebral disc disorders with radiculopathy, lumbar region documented in this encounter Care Teams Binder Stripper Hand Relationship Specialty Start Date End Date Rashaun Knutson MD [address] [place] [address] [phone] PCP - General Family Medicine 07/24/15 documented as of this encounter
--- OUTSIDE RECORDS SUMMARY | 2024-04-08 23:43 | External Medical Summary | Summary of Care ---
Author Name Unknown Organization [facility] Address [address] [place] [address] Phone [phone] Care Team Providers Care Planting Machine Crewman Name Role Phone Rashaun Marinelli MD Primary Care Provider [phone] Reason for Visit * Reason Onset Date Comments Referral 03/12/2024 Encounter Details Date Type Department Care Team ([facility] st Contact Info) Description 03/12/[address] [phone] Rashaun Marinelli MD [address] [place] [phone] Referral Allergies No known active allergiesdocumented as of this encounter (statuses as of 03/16/2024) Medications Medication Sig Dispensed Refills Start Date End Date Status OneTouch Delica Lancets 33G Use to check blood sugar once daily Dx E11.9 - ok to substitute brand and supplies insurance covers 100 Each 3 03/20/2020 Active OneTouch Verio In Vitro Strip (Glucose Blood) Use to check blood sugar once daily Dx E11.9 - ok to substitute brand and supplies insurance covers 100 Strip 3 03/20/2020 Active OneTouch Verio w/Device Kit Use to check blood sugar once daily Dx E11.9 - ok to substitute brand and supplies insurance covers 1 Kit 03/20/2020 Active Aspirin 81 MG Oral TabletIndications: DM type 2 nursing care encounter (HCC) Take 1 Tab by mouth daily. 30 Tab 10/04/2020 Active Vitamin D (Ergocalciferol) 1.25 MG (43976 UT) Oral Capsule Take 1 Cap by mouth once a week. 12 Cap 3 03/14/2021 Active BD Pen Needle Kavita 2nd Gen 32G X 4 MM (Insulin Pen Needle)Indications :Type 2 diabetes mellitus with hemoglobin A1c goal of less than 8.5% (HCC) USE WITH SOLARSTAR PEN 100 Each 2 03/28/2023 Active predniSONE 20 MG Oral Tablet (Deltasone)Indicat ions:Bronchitis, complicated Take 2 tabs for 3 days, 1 tab for 3 days, 1/2 tab for 3 days 11 Tablet 06/23/2023 Active Lisinopril 10 MG Oral Tablet (Prinivil)Indicati ons:HTN, goal below 140/90 Take 1 Tablet by mouth in the morning. 90 Tablet 3 10/28/2023 Active hydroCHLOROthiazid e 25 MG Oral Tablet (Hydrodiuril)Indic ations:HTN, goal below 140/90 Take 1 Tablet by mouth in the morning. 90 Tablet 3 10/28/2023 Active glipiZIDE ER 10 MG Oral Tablet Extended Release 24 Hour (glipiZIDE XL) Take 2 Tablets by mouth in the morning. 200 Tablet 3 11/04/2023 Active Insulin Glargine Solostar 100 UNIT/ML Subcutaneous Solution Pen-injector (Lantus SoloStar)Indicatio ns:Type 2 diabetes mellitus with hemoglobin A1c goal of less than or equal to 9.0% ([facility]) INJECT 45 UNITS SUBCUTANEOUSLY IN THE MORNING AND 40 UNITS AT NIGHT DX E11.9 - please fill edie 90 mL 3 12/10/2023 Active Tamsulosin HCl 0.4 MG Oral Capsule (Flomax)Indication s:BPH with obstruction/lower urinary tract symptoms Take 1 capsule by mouth in the morning 90 Capsule 1 12/22/2023 Active Atorvastatin Calcium 40 MG Oral Tablet (Lipitor)Indicatio ns:Type 2 diabetes mellitus with hemoglobin A1c goal of less than or equal to 9.0% ([facility]) TAKE 1 TABLET BY MOUTH IN THE MORNING 90 Tablet 1 12/22/2023 Active Famotidine 20 MG Oral Tablet (Pepcid)Indication s:Abdominal pain, epigastric TAKE 1 TABLET BY MOUTH TWICE DAILY NEEDED FOR HEARTBURN . 180 Tablet 1 01/12/2024 Active HYDROcodone-Acetam inophen 7.5-325 MG Oral TabletIndications: Disc disorder of lumbar region,MEDICATION USE AGREEMENT Take 1 Tablet by mouth every 6 hours as needed (as needed). 1 pill every 6 hours as needed for pain. 120 Tablet 02/10/2024 Active metFORMIN HCl ER 500 MG Oral Tablet Extended Release 24 Hour (Glucophage XR)Indications:Typ e 2 diabetes mellitus with hemoglobin A1c goal of less than or equal to 9.0% (HCC) TAKE 2 TABLETS BY MOUTH WITH BREAKFAST AND WITH DINNER 360 Tablet 3 02/09/2024 Active Trulicity 4.5 MG/0.5ML Subcutaneous Solution Pen-injector (Dulaglutide) Inject 4.5 mg under the skin once a week. 6 mL 1 02/12/2024 Active documented as of this encounter (statuses as of 03/16/2024) Active Problems Problem Noted Date Diagnosed Date [...] as of this encounter (statuses as of 03/16/2024) Resolved Problems Problem Noted Date Diagnosed Date [...] as of this encounter (statuses as of 03/16/2024) Immunizations Name Administration Dates Next Due COVID-19 mRNA, LNP-s, No Pre serve, 2-Dose Series (Quest Discovery) 02/13/2021,06/14/2020,05/24/2020 COVID-19, MRNA-LNP, 23-24, P F, 30 MCG/0.3 mL, 12 YRS AND ABOVE, IM (PFIZER-Comirnaty) 02/11/2023 COVID-19, MRNA-LNP, 23-24, P F, 50 MCG/0.5 mL, 12 YRS AND ABOVE, IM (MODERNA-Spikevax) 02/11/2023 COVID-19, MRNA-LNP, 24-25, P R, 30MCG/0.3ML, IM, 12YRS AND ABOVE ([employer] Discovery-Comirnaty) 01/30/2024 Covid-19, Mrna, Lnp-s, Pf, B ivalent, 30 Mcg, IM, 12 yrs and above (Pfizer) 02/11/2022 H1N1 2009 Influenza, IM 03/19/2009 Hepatitis B, 20+ yrs 05/01/2017,11/20/2016,10/18 Pneumococcal Conjugate Vacc, 13 Valent (Prevnar) 02/15/2019,11/08/2015 Pneumococcal Conjugate Vacci ne, 20-valent ([id number]) 01/16/2024 Pneumococcal Polysaccharide PPV23 (Pneumovax) 04/03/2006 Seasonal [...] as of this encounter Miscellaneous Notes * Telephone Encounter - Mikayla Alvarez LPN - 03/16/2024 10:50 AM EDT Sent [employer] message to make pt aware. * Telephone Encounter - Rashaun Marinelli MD - 03/12/2024 3:12 PM EDT Inform patient I have placed a referral to see [facility] pharmacy to help with more tighter blood sugar control They will contact patient directly documented in this encounter Plan of Treatment Upcoming Encounters Date Type Department Care Team (Late st Contact Info) Description 07/19/2024 12:00 PM EST Office Visit [address] [phone] Rashaun Marinelli MD [address] [place], [place] [id number] [phone] Health Maintenance Due Date Last Done Comments [...] Not on filedocumented as of this encounter Care Teams Planting Machine Crewman Relationship Specialty Start Date End Date Rashaun Marinelli MD [address] [place] [phone] PCP - General Family Medicine 07/24/15 documented as of this encounter
--- OUTSIDE RECORDS SUMMARY | 2024-04-08 23:43 | External Medical Summary | Summary of Care ---
Author Name Unknown Organization [facility] Address [address] [place] [address] Phone [phone] Care Team Providers Care Sole Painter Name Role Phone Rashaun Marinelli MD Primary Care Provider [phone] Reason for Visit * Reason Onset Date Comments Referral 03/25/2024 [facility] Discharge ( DM) Encounter Details Date Type Department Care Team ([facility] st Contact Info) Description 03/25/[address]24 [address] [phone] Pharmacist1, [facility] [address] [address] Referral ([facility] Discharge (DM)) Allergies No known active allergiesdocumented as of this encounter (statuses as of 03/25/2024) Medications Medication Sig Dispensed Refills Start Date [...] 10/04/2020 Active Vitamin D (Ergocalciferol) 1.25 MG (29151 UT) Oral Capsule Take 1 Cap by [...] less than or equal to 9.0% (HCC) INJECT 45 UNITS SUBCUTANEOUSLY IN THE MORNING [...] than or equal to 9.0% (HCC) TAKE 1 TABLET BY MOUTH IN THE [...] as of this encounter (statuses as of 03/25/2024) Active Problems Problem Noted Date Diagnosed Date Type 2 diabetes mellitus wit h hemoglobin A1c goal of less than or equal to 9.0% 05/01/2017 MEDICATION USE AGREEMENT 05/01/2017 Never smoked tobacco 10/18/2016 HTN, goal below 140/90 11/09/2013 Disc disorder of lumbar region 05/03/2010 Impotence of organic origin 04/01/2007 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 DM type 2, not at goal 12/04/200504/03 Type 2 diabetes mellitus wit h hemoglobin A1c goal of less than 7.0% 03/16/2009 Overview: Per Diabetes Taxonomy. Diabetes Type II, Controlled ICD-10 update of inactive term documented as of this encounter (statuses as of 03/25/2024) Immunizations Name Administration Dates Next Due COVID-19 mRNA, LNP-s, No Pre serve, 2-Dose Series (Gamida Cell) 02/13/2021,06/14/2020,05/24/2020 COVID-19, MRNA-LNP, 24-25, P R, 30MCG/0.3ML, IM, 12YRS AND ABOVE (Gamida Cell-Comirnaty) 01/30/2024 COVID-19, MRNA-LNP, PF, 30 M CG/0.3 mL, 12 YRS AND ABOVE, IM (PFIZER-Comirnaty) 02/11/2023 COVID-19, MRNA-LNP, PF, 50 M CG/0.5 mL, 12 YRS AND ABOVE, IM (MODERNA-Spikevax) 02/11/2023 Covid-19, Mrna, Lnp-s, Pf, B ivalent, 30 Mcg, IM, 12 yrs and above (Pfizer) 02/11/2022 H1N1 2009 Influenza, IM 03/19/2009 Hepatitis B, 20+ yrs 05/01/2017,11/20/2016,10/18 Pneumococcal Conjugate Vacc, 13 Valent (Prevnar) 02/15/2019,11/08/2015 Pneumococcal Conjugate Vacci ne, 20-valent ([id number]) 01/16/2024 Pneumococcal Polysaccharide PPV23 (Pneumovax) 04/03/2006 Seasonal Influenza Vac., MDV , IM, 0.5 mL (Fluzone) 2015,02/11/2014,04/15/2013,01/17,03/19/2011,02/27/2010,02/15/20,03/23/2008,04/01/2007,04/03/2006 03/19/2012 Seasonal Influenza, PF, 6 M & [...] 06/23/2023 Does the household have a re lar source of income? (Household - for ages [...] encounter Miscellaneous Notes * Telephone Encounter - Michaela Santoro PHARM Tech - 03/25/2024 2:35 PM EST Marquez Casanova Sr. has not contacted the clinic to schedule/reschedule an appointment for DM management per referral from PCP despite multiple requests to do so by our team. Patient is discharged from [facility] services at this time. Thank you, Michaela Santoro Manager [facility] (Formerly [facility]) 03/25/2024, 2:35 PM documented in this encounter Plan of Treatment Upcoming Encounters Date Type Department Care Team (Late st Contact Info) Description 07/19/2024 12:00 PM EST Office Visit Family Practice [address] [phone] Rashaun Marinelli MD [address] [place] [phone] Health Maintenance Due Date Last Done Comments Colonoscopy 2003 Fecal Occult Blood Test 2003 Sigmoidoscopy 2003 Depression Screening 02/11/2023 02/11/2022 Diabetic Eye Exam 12/28/2023 12/27/2022, , 06/12/2020, Additional history exists Adult Wellness Visit 02/08/2024 COVID-19 Vaccine ( season) 2024 01/30/2024, 01/30/2024, 02/11/2023, Additional history exists HbA1c 07/29/2024 01/30/2024, 110 10/2022, 09/06/2022, Additional history exists Albumin/Creatinine Ratio [...] Completed 07/2023, 01/09/2023, 02/11/2022, Additional history exists HPV (Gardasil) Vaccine Aged Out No lo nger eligible based on patient's age to complete this topic MENINGOCOCCAL (MENACTRA/MENVEO) Aged Out No longer eligible based on patient's age to complete this topic documented as of this encounter Medical Devices Not on filedocumented as of this encounter Care Teams Sole Painter Relationship Specialty Start Date End Date Rashaun Marinelli MD [address] [place] [address] [phone] PCP - General Family Medicine 07/24/15 documented as of this encounter
--- OUTSIDE RECORDS SUMMARY | 2024-04-08 23:43 | External Medical Summary | Summary of Care ---
Author Name Unknown Organization [facility] Address [address] [place] [address] Phone [phone] Care Team Providers Care Biology Faculty Member Name Role Phone Rashaun Marinelli MD Primary Care Provider [phone] Reason for Visit * Reason Onset Date Comments Health Maintenance 02/02/2024 Encounter Details Date Type Department Care Team ([facility] st Contact Info) Description 02/02/[address] [phone] Rashaun Marinelli MD [address] [place] [phone] Health Maintenance Allergies No known active allergiesdocumented as of this encounter (statuses as of 02/02/2024) Medications Medication Sig Dispensed Refills Start Date [...] 10/04/2020 Active Vitamin D (Ergocalciferol) 1.25 MG (95917 UT) Oral Capsule Take 1 Cap by mouth once a week. 12 Cap 3 03/14/2021 Active Trulicity 3 MG/0.5ML Subcutaneous Solution Pen-injector (Dulaglutide) Inject 3 mg under the skin once a week. Dose reduction from Trulicity 4.5mg due to back order 6 mL 2 06/13/2022 Active Trulicity 4.5 MG/0.5ML Subcutaneous Solution Pen-injector (Dulaglutide) Inject 4.5 mg under the skin once a week. 6 mL 3 03/12/2023 Active BD Pen Needle Kavita 2nd Gen 32G X 4 MM (Insulin Pen Needle)Indications :Type 2 diabetes mellitus with hemoglobin A1c goal of less than 8.5% ([facility]) USE WITH SOLARSTAR PEN 100 Each 2 [...] the morning. 200 Tablet 3 11/04/2023 Active HYDROcodone-Acetam inophen 7.5-325 MG Oral TabletIndications: Disc disorder of lumbar region,MEDICATION USE AGREEMENT Take 1 Tablet by mouth every 6 hours as needed (as needed). 1 pill every 6 hours as needed for pain. 120 Tablet 11/05/2023 Active metFORMIN HCl ER 500 MG Oral Tablet Extended Release 24 Hour (Glucophage XR)Indications:Typ e 2 diabetes mellitus with hemoglobin A1c goal of less than or equal to 9.0% (HCC) TAKE 2 TABLETS BY MOUTH WITH BREAKFAST AND WITH DINNER 360 Tablet 11/14/2023 Active Insulin Glargine Solostar 100 UNIT/ML Subcutaneous [...] HEARTBURN . 180 Tablet 1 01/12/2024 Active documented as of this encounter (statuses as of 02/02/2024) Active Problems Problem Noted Date Diagnosed Date [...] as of this encounter (statuses as of 02/02/2024) Resolved Problems Problem Noted Date Diagnosed Date [...] as of this encounter (statuses as of 02/02/2024) Immunizations Name Administration Dates Next Due COVID-19 mRNA, LNP-s, No Pre serve, 2-Dose Series (TechnoVax) 02/13/2021,06/14/2020,05/24/2020 COVID-19, MRNA-LNP, 23-24, P F, 30 MCG/0.3 mL, 12 YRS AND ABOVE, IM ([employer]nat[employer]) 02/11/2023 COVID-19, MRNA-LNP, 24-25, P R, 30MCG/0.3ML, IM, 12YRS AND ABOVE (TechnoVax-ComirnatOpen Box Technologies) 01/30/2024 Covid-19, Mrna, Lnp-s, Pf, B ivalent, 30 Mcg, IM, 12 yrs and above (Pfizer) 02/11/2022 H1N1 2009 Influenza, IM 03/19/2009 Hepatitis B, 20+ yrs 05/01/2017,11/20/2016,10/18 Pneumococcal Conjugate Vacc, 13 Valent (Prevnar) 02/15/2019,11/08/2015 Pneumococcal Conjugate Vacci ne, 20-valent ([id number]) 01/16/2024 Pneumococcal Polysaccharide PPV23 (Pneumovax) 04/03/2006 Seasonal Influenza, PF, 6 M & above, IM , (FluLaval or Fluzone) 02/11/2022,01/24/2021,01/19/2018 Seasonal Influenza, Quadriva lent, No Preserve, IM 01/23/2020,02/15/2019,02/03/2018,01/18 Seasonal Influenza, Quadriva lent, No Preserve, Mdck 01/23/2017 Seasonal Influenza, Recombin ant, RIV4, PF, (Flublock) 01/09/2023 Seasonal Influenza, Trivalen t, (IIV3), with Preserv, (Fluzone) 2015,02/11/2014,04/15/2013,01/17,03/19/2011,02/27/2010,02/15/20,03/23/2008,04/01/2007,04/03/2006 03/19/2012 TDAP (age 10 and older)(Boostrix) 02/11/2022,04/2012 Zoster [...] encounter Miscellaneous Notes * Telephone Encounter - Cami Sullivan LPN - 02/02/2024 10:33 AM EDT Care Gaps Comprehensive Care Outreach Last Office/Telemedicine Visit: 02/11/2022 (in office), 01/13/2024 (telemedicine) Next Office Visit: 07/19/2024 Hemoglobin AIC Results: Lab Results Component Value Date/Time HEMOGLOBIN A1C - [facility] 8.1 (H) 01/30/2024 10:39 AM HEMOGLOBIN A1C - [facility] 7.4 (H) 03/24/2023 07:26 AM HEMOGLOBIN A1C - [facility] 7.3 (H) 09/06/2022 07:05 AM HEMOGLOBIN A1C - [facility] 8.5 (H) 03/17/2020 07:25 AM HEMOGLOBIN A1C - [facility] 8.4 (H) 08/23/2019 07:58 AM HEMOGLOBIN A1C - [facility] 8.4 (H) 04/20/2019 04:04 PM BP Readings from Last 1 Encounters: 02/11/22 130/76 Reviewed Health Maintenance below: Health Maintenance Topic Date Due Colorectal Cancer Screening 08/30/2020 Depression Screening 02/11/2023 Diabetic Eye Exam 12/28/2023 Influenza Vaccine (FLU shot) (1) 01/18/2024 Care Gap Outreach Action Taken: Left message and MyChart message sent documented in this encounter Plan of Treatment Upcoming Encounters Date Type Department Care Team ([facility] Contact Info) Description 07/19/2024 12:00 PM EST Office Visit [address] [phone] Rashaun Marinelli MD [address] [place] [phone] Health Maintenance Due Date Last Done Comments Colonoscopy 2003 Fecal Occult Blood Test 2003 Sigmoidoscopy 2003 Cologuard 08/30/2020 08/30/2017, 08/26/2017 Colorectal Cancer Screening 08/30/2020 Depression Screening 02/11/2023 02/11/2022 Diabetic Eye Exam 12/28/2023 12/27/2022, , 06/12/2020, Additional history exists Influenza Vaccine (FLU shot) (#1) 2024 01/09/2023, 02/11/2022, 01/24/2021, Additional history exists HbA1c 07/29/2024 01/30/2024, 110 10/2022, 09/06/2022, Additional history exists Albumin/Creatinine Ratio 01/29/20252 024, 03/24/2023, 02/04/2022, Additional history exists B-12 01/29/2025 01/30/2024, 110 10/2022, 02/04/2022, Additional history exists Diabetic Foot Exam 01/29/2025 01/30/2024, 0 07/12/2021, 06/12/2020, Additional history exists GFR 01/29/2025 01/30/2024, 11/0 10/2022, 02/04/2022, Additional history exists Lipid Panel 01/29/2029 01/30/2024, 11/0 10/2022, 07/06/2021, Additional history exists DTap/Tdap Vaccines (3 - Td or Tdap) 02/12/2032 02/11/2022, 01/29/2012 Hepatitis C Screening Completed 10/15/2016 Hepatitis B Vaccine Completed 05/01/2017, 11/20/2016, 10/18/2016 Zoster Vaccines Completed 01/14/2018, 10/14/2017 Pneumococcal Vaccine: 65+ Years Completed 01/16/2024, 02/15/2019, 11/08/2015, Additional history exists COVID-19 Vaccine Completed 01/30/2024, , 02/11/2023, Additional history exists HPV (Gardasil) Vaccine Aged Out No lo nger eligible based on patient's age to complete this topic MENINGOCOCCAL (MENACTRA/MENVEO) Aged Out No longer eligible based on patient's age to complete this topic documented as of this encounter Medical Devices Not on filedocumented as of this encounter Care Teams Biology Faculty Member Relationship Specialty Start Date End Date Rashaun Marinelli MD [address] [place] [address] [phone] PCP - General Family Medicine 07/24/15 documented as of this encounter
--- OUTSIDE RECORDS SUMMARY | 2024-04-08 23:43 | External Medical Summary | Summary of Care ---
Author Name Unknown Organization [facility] Address [address] [place] [address] Phone [phone] Care Team Providers Care Dormitory Keeper Name Role Phone Rashaun Knutson MD Primary Care Provider [phone] Reason for Visit * Reason Comments eRx-Medication Refill Encounter Details Date Type Department Care Team ([facility] st Contact Info) Description [address] [phone] Rashaun Knutson MD [address] [place] [phone] Type 2 diabetes mellitus with hemoglobin A1c goal of less than or equal to 9.0% ([facility]) Allergies No known active allergiesdocumented as of this encounter (statuses as of 02/09/2024) Medications Medication Sig Dispensed Refills Start Date End Date Status OneTouch Delica Lancets 33G Use to check blood sugar once daily Dx E11.9 - ok to substitute brand and supplies insurance covers 100 Each 3 0 Active OneTouch Verio In Vitro Strip (Glucose Blood) Use to check blood sugar once daily Dx E11.9 - ok to substitute brand and supplies insurance covers 100 Strip 3 0 Active OneTouch Verio w/Device Kit Use to check blood sugar once daily Dx E11.9 - ok to substitute brand and supplies insurance covers 1 Kit 0 Active Aspirin 81 MG Oral TabletIndication s:DM type 2 nursing care encounter (HCC) Take 1 Tab by mouth daily. 30 Tab 1 Active Vitamin D (Ergocalciferol) 1.25 MG (27531 UT) Oral Capsule Take 1 Cap by mouth once a week. 12 Cap 3 1 Active Trulicity 3 MG/0.5ML Subcutaneous Solution Pen-injector (Dulaglutide) Inject 3 mg under the skin once a week. Dose reduction from Trulicity 4.5mg due to back order 6 mL 2 3 Active Trulicity 4.5 MG/0.5ML Subcutaneous Solution Pen-injector (Dulaglutide) Inject 4.5 mg under the skin once a week. 6 mL 3 3 Active BD Pen Needle Kavita 2nd Gen 32G X 4 MM (Insulin Pen Needle)Indicatio ns:Type 2 diabetes mellitus with hemoglobin A1c goal of less than 8.5% ([facility]) USE WITH SOLARSTAR PEN 100 Each 2 3 Active predniSONE 20 MG Oral Tablet (Deltasone)Indic ations:Bronchiti s, complicated Take 2 tabs for 3 days, 1 tab for 3 days, 1/2 tab for 3 days 11 Tablet 4 Active Lisinopril 10 MG Oral Tablet (Prinivil)Indica tions:HTN, goal below 140/90 Take 1 Tablet by mouth in the morning. 90 Tablet 3 4 Active hydroCHLOROthiaz kathleen 25 MG Oral Tablet (Hydrodiuril)Ind ications:HTN, goal below 140/90 Take 1 Tablet by mouth in the morning. 90 Tablet 3 4 Active glipiZIDE ER 10 MG Oral Tablet Extended Release 24 Hour (glipiZIDE XL) Take 2 Tablets by mouth in the morning. 200 Tablet 3 4 Active HYDROcodone-Acet aminophen 7.5-325 MG Oral TabletIndication s:Disc disorder of lumbar region,MEDICATIO N USE AGREEMENT Take 1 Tablet by mouth every 6 hours as needed (as needed). 1 pill every 6 hours as needed for pain. 120 Tablet 4 Active Insulin Glargine Solostar 100 UNIT/ML Subcutaneous Solution Pen-injector (Lantus SoloStar)Indicat ions:Type 2 diabetes mellitus with hemoglobin A1c goal of less than or equal to 9.0% ([facility]) INJECT 45 UNITS SUBCUTANEOUSLY IN THE MORNING AND 40 UNITS AT NIGHT DX E11.9 - please fill edie 90 mL 3 4 Active Tamsulosin HCl 0.4 MG Oral Capsule (Flomax)Indicati ons:BPH with obstruction/lowe r urinary tract symptoms Take 1 capsule by mouth in the morning 90 Capsule 1 4 Active Atorvastatin Calcium 40 MG Oral Tablet (Lipitor)Indicat ions:Type 2 diabetes mellitus with hemoglobin A1c goal of less than or equal to 9.0% (HCC) TAKE 1 TABLET BY MOUTH IN THE MORNING 90 Tablet 1 4 Active Famotidine 20 MG Oral Tablet (Pepcid)Indicati ons:Abdominal pain, epigastric TAKE 1 TABLET BY MOUTH TWICE DAILY NEEDED FOR HEARTBURN . 180 Tablet 1 4 Active metFORMIN HCl ER 500 MG Oral Tablet Extended Release 24 Hour (Glucophage XR)Indications:T ype 2 diabetes mellitus with hemoglobin A1c goal of less than or equal to 9.0% (HCC) TAKE 2 TABLETS BY MOUTH WITH BREAKFAST AND WITH DINNER 360 Tablet 3 4 Active metFORMIN HCl ER 500 MG Oral Tablet Extended Release 24 Hour (Glucophage XR)Indications:T ype 2 diabetes mellitus with hemoglobin A1c goal of less than or equal to 9.0% (HCC) TAKE 2 TABLETS BY MOUTH WITH BREAKFAST AND WITH DINNER 360 Tablet 4 02/09/20 24 Discontinued documented as of this encounter (statuses as of 02/09/2024) Active Problems Problem Noted Date Diagnosed Date [...] as of this encounter (statuses as of 02/09/2024) Resolved Problems Problem Noted Date Diagnosed Date [...] as of this encounter (statuses as of 02/09/2024) Immunizations Name Administration Dates Next Due COVID-19 mRNA, LNP-s, No Pre serve, 2-Dose Series (Sapiens) 02/13/2021,06/14/2020,05/24/2020 COVID-19, MRNA-LNP, 23-24, P F, 30 MCG/0.3 mL, 12 YRS AND ABOVE, IM (PFI[employer]ER-Comirnaty) 02/11/2023 COVID-19, MRNA-LNP, 24-25, P R, 30MCG/0.3ML, IM, 12YRS AND ABOVE (Pfizer-Comirnat) 01/30/2024 Covid-19, Mrna, Lnp-s, Pf, B ivalent, 30 Mcg, IM, 12 yrs and above (Pfizer) 02/11/2022 H1N1 2009 Influenza, IM 03/19/2009 Hepatitis B, 20+ yrs 05/01/2017,11/20/2016,10/18 Pneumococcal Conjugate Vacc, 13 Valent (Prevnar) 02/15/2019,11/08/2015 Pneumococcal Conjugate Vacci ne, 20-valent ([id number]) 01/16/2024 Pneumococcal Polysaccharide PPV23 (Pneumovax) 04/03/2006 Seasonal Influenza, PF, 6 M & above, IM , (FluLaval or Fluzone) 02/11/2022,01/24/2021,01/19/2018 Seasonal Influenza, Quadriva lent, No Preserve, IM 01/23/2020,02/15/2019,02/03/2018,01/18 Seasonal Influenza, Quadriva lent, No Preserve, Mdck 01/23/2017 Seasonal Influenza, Recombin ant, RIV4, PF, (Flublock) 01/09/2023 Seasonal Influenza, Trivalen t, (IIV3), with Preserv, (Fluzone) 2015,02/11/2014,04/15/2013,01/17,03/19/2011,02/27/2010,02/15/20 09,03/23/2008,04/01/2007,04/03/2006 03/19/2012 TDAP (age 10 and older)(Boostrix) 02/11/2022,04/2012 [...] encounter Miscellaneous Notes * Telephone Encounter - Carlene Roman RPh - 02/09/2024 8:01 AM EDT Signed Prescriptions: Disp Refills metFORMIN HCl ER 500 MG Oral Tablet Extend*360 Ta*3 Sig: TAKE 2 TABLETS BY MOUTH WITH BREAKFAST AND WITH DINNERAuthorizing Provider: Jonna KNUTSON User: CARLENE ROMAN documented in this encounter Plan of Treatment Upcoming Encounters Date Type Department Care Team ([facility] Contact Info) Description 07/19/2024 12:00 PM EST Office Visit [address] [phone] Rashaun Knutson MD [address] [place] [address] Health Maintenance Due Date Last Done Comments Colonoscopy 2003 Fecal Occult Blood Test 2003 Sigmoidoscopy 2003 Cologuard 08/30/2020 08/30/2017, 08/26/2017 Colorectal Cancer Screening 08/30/2020 Depression Screening 02/11/2023 02/11/2022 Diabetic Eye Exam 12/28/2023 12/27/2022, , 06/12/2020, Additional history exists Influenza Vaccine (FLU shot) (#1) 2024 01/09/2023, 02/11/2022, 01/24/2021, Additional history exists HbA1c 07/29/2024 01/30/2024, 11/0 10/2022, 09/06/2022, Additional history exists Albumin/Creatinine Ratio 01/29/202501/29/2 024, 03/24/2023, 02/04/2022, Additional history exists B-12 [...] Not on filedocumented as of this encounter Visit Diagnoses Diagnosis Type 2 diabetes mellitus with hemoglobin A1c goal of less than or equal to 9.0% (HCC) documented in this encounter Care Teams Dormitory Keeper Relationship Specialty Start Date End Date Rashaun Knutson MD [address] [place] [phone] PCP - General Family Medicine 07/24/15 documented as of this encounter
--- OUTSIDE RECORDS SUMMARY | 2024-04-08 23:43 | External Medical Summary | Summary of Care ---
Author Name Unknown Organization [facility] Address [address] [place] [address] Phone [phone] Care Team Providers Care Gang Bore Operator Name Role Phone Rashaun Marinelli MD Primary Care Provider [phone] Reason for Visit * Reason Comments Nurse Documentation Encounter Details Date Type Department Care Team ([facility] Contact Info) Description 01/30/2024 11:20 AM EDT Nurse Only Ancillary [address] [phone] [place], Nurse [address] [phone] Nurse Documentation Allergies No known active allergiesdocumented as of this encounter (statuses as of 01/30/2024) Medications Medication Sig Dispensed Refills Start Date [...] 10/04/2020 Active Vitamin D (Ergocalciferol) 1.25 MG (02329 UT) Oral Capsule Take 1 Cap by [...] as of this encounter (statuses as of 01/30/2024) Active Problems Problem Noted Date Diagnosed Date [...] as of this encounter (statuses as of 01/30/2024) Resolved Problems Problem Noted Date Diagnosed Date [...] as of this encounter (statuses as of 01/30/2024) Immunizations Name Administration Dates Next Due COVID-19 mRNA, LNP-s, No Pre serve, 2-Dose Series ([employer]) 02/13/2021,06/14/2020,05/24/2020 COVID-19, MRNA-LNP, 23-24, P F, 30 MCG/0.3 mL, 12 YRS AND ABOVE, IM [facility] 02/11/2023 Covid-19, Mrna, Lnp-s, Pf, B ivalent, 30 Mcg, IM, 12 yrs and above (Pfizer) 02/11/2022 H1N1 2009 Influenza, IM 03/19/2009 Hepatitis B, 20+ yrs 05/01/2017,11/20/2016,10/18 Pneumococcal Conjugate Vacc, 13 Valent (Prevnar) 02/15/2019,11/08/2015 Pneumococcal Conjugate Vacci ne, 20-valent ([id number]) 01/16/2024 Pneumococcal Polysaccharide PPV23 (Pneumovax) 04/03/2006 Seasonal [...] on file documented as of this encounter Patient Instructions * Patient Instructions* Mikayla Alvarez LPN - 01/30/2024 10:57 AM EDT Diabetes: Keeping Feet Healthy Inspect your feet every day for signs of a problem. Diabetes can damage nerves in your feet and cause neuropathy. This condition makes it hard for you to feel injuries or sore spots. Diabetes can also change blood flow, making it harder for small problems, like a blister, to heal properly. In fact, minor injuries can quickly become serious infections that send you to the hospital. Practice self-care to protect your feet and keep them healthy. Take Special Care Inspect your feet daily for problems such as redness, blisters, cracks, dry skin, or numbness. Use a mirror to see the bottoms of your feet. Or, ask for help. Manage your diabetes. Monitor and control your blood sugar. Take all your medications as prescribed. Avoid walking barefoot, even indoors. Wash your feet with warm water and mild soap. Dry well, especially between toes. Dont treat corns or calluses yourself. Talk to your doctor or photography spotter (a doctor who specializes in foot care) if you need assistance trimming your toenails. Use moisturizing cream or lotion if you have dry skin, but dont use it between toes. Dont use heating pads on your feet. If you have neuropathy, you could get a burn and not feel it. Stop smoking. Smoking restricts blood flow and can make it harder for wounds to heal. Have Regular Checkups Foot problems can develop quickly. So be sure to follow your healthcare teams schedule for regular checkups. During office visits, take off your shoes and socks as soon as you get in the exam room. Ask your healthcare provider to examine your feet for problems. This will make it easier to find and treat small skin irritations before they get worse. Regular checkups can also help keep track of the blood flow and feeling in your feet. If you have neuropathy, you may need to have checkups more often. Wear Proper Footwear Wearing proper footwear is very important. If areas of your feet have been damaged by too much pressure, your healthcare provider may recommend changing your footwear. In some cases, avoiding high heels or tight work boots may be all thats needed. Or, your healthcare provider may recommend special shoes or custom inserts. These help protect your feet and keep existing irritations from getting worse. If you need special footwear, ask your healthcare provider if you qualify for [employer] diabetic shoe program. Make Sure Shoes and Socks Fit Any pair of shoes--new or old--should feel comfortable as soon as you put them on. There shouldnt be any rubbing when you walk. Wear the right shoe for any activity. For instance, a running shoe is designed to keep your feet injury-free while jogging. Buy shoes at the end of the day, when your feet are larger. Make sure they provide support without feeling too loose. Make sure your socks fit, t oo. Wear soft, seamless, well-padded socks for activity. Cotton or microfiber socks are best to help to absorb sweat. To protect your feet, avoid shoes that are open-toed or open-heeled. If you have questions about what kinds of shoes and socks are best, talk to your healthcare team. Get Regular Exercise Regular exercise improves blood flow in your feet. It also increases foot strength and flexibility.Gentle exercises, like walking or riding a stationary bicycle, are best. You can also do special foot exercises. Just be sure to talk with your healthcare provider before starting any exercise program. Also mention if any exercise causes pain, redness, or other signs of foot problems. Note: If you have any kind of break in the skin of your foot or ankle, keep the area clean. Then call your doctor--especially if the area doesnt appear to be healing. [id number] [employer], [address] [place], [place] [id number]. All rights reserved. This information is not intended as a substitute for professional medical care. Always follow your healthcare professional's instructions. documented in this encounter Progress Notes * Mikayla Alvarez LPN - 01/30/2024 10:57 AM EDT Socks and Shoes Removed for Annual Diabetic Foot Screening RIGHT FOOT: No Reddened, Cracking, Or Open Areas Noted. RIGHT Dorsalis Pedis Pulse: Palpable RIGHT Posterior Tibial Pulse: Unable to locate RIGHT Monofilament:Patient reports difficulty feeling monofilament at Great toe- plantar surface LEFT FOOT: No Reddened, Cracking or Open Areas Noted. LEFT Dorsalis Pedis Pulse: Palpable LEFT Posterior Tibial Pulse: Unable to locate LEFT Monofilament:Patient reports difficulty feeling monofilament at Great toe- plantar surface Do you need diabetic shoes: No DM Foot Exam completed today. Provider aware. Mikayla Alvarez LPN documented in this encounter Plan of Treatment Upcoming Encounters Date Type Department Care Team (Late [facility] Contact Info) Description 07/19/2024 12:00 PM EST Office Visit [address] [phone] Rashaun Marinelli MD [address] [place] [phone] Health Maintenance Due Date Last Done Comments Colonoscopy 2003 Fecal Occult Blood Test 2003 Sigmoidoscopy 2003 Cologuard 08/30/2020 08/30/2017, 08/26/2017 Colorectal Cancer Screening 08/30/2020 Depression Screening 02/11/2023 02/11/2022 HbA1c 09/22/2023 03/24/2023, 08/18, 02/04/2022, Additional history exists Diabetic Eye Exam 12/28/2023 12/27/2022, , 06/12/2020, Additional history exists COVID-19 Vaccine ( season) 2024 02/11/2023, 02/11/2023, 02/11/2022, Additional history exists Influenza Vaccine (FLU shot) (#1) 2024 01/09/2023, 02/11/2022, 01/24/2021, Additional history exists Albumin/Creatinine Ratio 03/24/2024 023, 02/04/2022, 10/13/2020, Additional history exists B-12 03/24/2024 03/24/2023, 01/17, 03/07/2021, Additional history exists GFR 03/24/2024 03/24/2023, 01/17, 07/06/2021, Additional history exists Diabetic Foot Exam 01/29/2025 01/30/2024, 0 07/12/2021, 06/12/2020, Additional history exists Lipid Panel 03/24/2028 03/24/2023, 06/19, 10/13/2020, Additional history exists DTap/Tdap Vaccines (3 - Td or Tdap) 02/12/2032 02/11/2022, 01/29/2012 Hepatitis C Screening Completed 10/15/2016 Hepatitis B Vaccine Completed 05/01/2017, 11/20/2016, 10/18/2016 Zoster Vaccines Completed 01/14/2018, 10/14/2017 Pneumococcal Vaccine: 65+ Years Completed 01/16/2024, 02/15/2019, 11/08/2015, Additional history exists HPV (Gardasil) Vaccine Aged Out No lo nger eligible based on patient's age to complete this topic MENINGOCOCCAL (MENACTRA/MENVEO) Aged Out No longer eligible based on patient's age to complete this topic documented as of this encounter Medical Devices Not on filedocumented as of this encounter Visit Diagnoses Diagnosis DM type 2 nursing care encounter (HCC)- Primary Type II or unspecified type diabetes mellitus without mention of complication, not stated as uncontrolled documented in this encounter Care Teams Gang Bore Operator Relationship Specialty Start Date End Date Rashaun Marinelli MD [address] [place] [phone] PCP - General Family Medicine 07/24/15 documented as of this encounter
--- OUTSIDE RECORDS SUMMARY | 2024-04-08 23:43 | External Medical Summary | Summary of Care ---
Author Name Unknown Organization [facility] Address [address] [place] [address] Phone [phone] Care Team Providers Care Lithographer Helper Name Role Phone Rashaun Marinelli MD Primary Care Provider [phone] Reason for Visit * Reason Comments Outpatient Testing Encounter Details Date Type Department Care Team (Late st Contact Info) Description 01/30/2024 11:00 AM EDT Laboratory [facility] [phone] [facility] [address] [address] Type 2 diabetes mellitus with hemoglobin A1c goal of less than or equal to 9.0% ([facility]); Other intermodal owner operator truck driver (current) drug therapy; Intervertebral disc disorders with [...] 10/04/2020 Active Vitamin D (Ergocalciferol) 1.25 MG (63985 UT) Oral Capsule Take 1 Cap by [...] hemoglobin A1c goal of less than 8.5% ([facility]) USE WITH SOLARSTAR PEN 100 Each [...] of less than or equal to 9.0% ([facility]) TAKE 2 TABLETS BY MOUTH WITH BREAKFAST [...] mRNA, LNP-s, No Pre serve, 2-Dose Series (Chu Shu) 02/13/2021,06/14/2020,05/24/2020 COVID-19, MRNA-LNP, 23-24, P F, 30 MCG/0.3 mL, 12 YRS AND ABOVE, IM ([facility]) 02/11/2023 Covid-19, Mrna, Lnp-s, Pf, B ivalent, 30 Mcg, IM, 12 yrs and above (Pfizer) 02/11/2022 H1N1 2009 Influenza, IM 03/19/2009 Hepatitis B, 20+ yrs 05/01/2017,11/20/2016,10/18 Pneumococcal Conjugate Vacc, 13 Valent (Prevnar) 02/15/2019,11/08/2015 Pneumococcal Conjugate Vacci ne, 20-valent ([id number]) 01/16/2024 Pneumococcal Polysaccharide PPV23 (Pneumovax) 04/03/2006 Seasonal [...] on file documented as of this encounter Plan of Treatment Upcoming Encounters Date Type Department Care Team ([facility] Contact Info) Description 01/30/2024 11:20 AM EDT Nurse Only Ancillary [address] [phone] [place], Nurse g [address] [address] Nurse Documentation 07/19/2024 12:00 PM EST Office Visit Family [address] [place] [phone] Rashaun Marinelli MD [address] [place] [phone] Pending Results Name Type Priority Associated Diagnoses Date /Time 25-HYDROXY VITAMIN D Lab Routine Type 2 diabetes mellitus with hemoglobin A1c goal of less than or equal to 9.0% ([facility]) Other shelter (current) drug therapy 01/30/2024 10:39 AM EDT VITAMIN B12 Lab Routine Type 2 diabetes mellitus with hemoglobin A1c goal of less than or equal to 9.0% ([facility]) Other intermodal owner operator truck driver (current) drug therapy 01/30/2024 10:39 AM EDT HEMOGLOBIN A1C Lab Routine Type 2 diabetes mellitus with hemoglobin A1c goal of less than or equal to 9.0% ([facility]) 01/30/2024 10:39 AM EDT COMPREHENSIVE METABOLIC PANEL Lab Routine Type 2 diabetes mellitus with hemoglobin A1c goal of less than or equal to 9.0% ([facility]) 01/30/2024 10:39 AM EDT LIPID PANEL WITH DIRECT LDL IF TG IS HIGH Lab Routine Type 2 diabetes mellitus with hemoglobin A1c goal of less than or equal to 9.0% ([facility]) 01/30/2024 10:39 AM EDT CBC WITH WBC DIFFERENTIAL Lab Routine Type 2 diabetes mellitus with hemoglobin A1c goal of less than or equal to 9.0% ([facility]) 01/30/2024 10:39 AM EDT ALBUMIN / CREATININE RATIO, URINE Lab Routine Type 2 diabetes mellitus with hemoglobin A1c goal of less than or equal to 9.0% ([facility]) 01/30/2024 10:39 AM EDT PAIN MANAGEMENT DRUG PANEL, URINE W/ INTERPRETATION Lab Routine Intervertebral disc disorders with radiculopathy, lumbar region 01/30/2024 10:39 AM EDT CBC Lab Routine Type 2 diabetes mellitus with hemoglobin A1c goal of less than or equal to 9.0% ([facility]) 01/30/2024 10:39 AM EDT DIFFERENTIAL, AUTOMATED Lab Routine Type 2 diabetes mellitus with hemoglobin A1c goal of less than or equal to 9.0% ([facility]) 01/30/2024 10:39 AM EDT Health Maintenance Due Date Last Done Comments Colonoscopy 2003 Fecal Occult Blood Test 2003 Sigmoidoscopy 2003 Cologuard 08/30/2020 08/30/2017, 08/26/2017 Colorectal Cancer Screening 08/30/2020 Depression Screening 02/11/2023 02/11/2022 HbA1c 09/22/2023 03/24/2023, 0405/2022, 02/04/2022, Additional history exists Diabetic Eye Exam [...] mention of complication, not stated as uncontrolled Type 2 diabetes mellitus with hemoglobin A1c goal of less than or equal to 9.0% (HCC) Other intermodal owner operator truck driver (current) drug therapy Intervertebral disc disorders with radiculopathy, lumbar region documented in this encounter Care Teams Lithographer Helper Relationship Specialty Start Date End Date Rashaun Marinelli MD [address] [place] [phone] PCP - General Family Medicine 07/24/15 documented as of this encounter
--- OUTSIDE RECORDS SUMMARY | 2024-04-08 23:44 | External Medical Summary ---
Author Name Unknown Address Unknown Organization [id number]:[facility] [place] [address] [facility] [address] Laboratory Report Ordering Provider Test Date Status CARISA LEALA 01/30/2024 10:39:23 Final Observation Date Value Abnormality Reference (Units ) Status SYNC LEUKOCYTES IN BLOOD BY AUTOMATED COUNT 01/30/2024 10:39:23 9.89 4.00-10.80 (K/uL) Final Segs 01/30/2024 10:39:23 62.1 40.0-75.0 (%) Final Lymphs % 01/30/2024 10:39:23 29.9 18.0-42.0 (%) Final Monos 01/30/2024 10:39:23 6.6 1.0-11.0 (%) Final Eosinophils 01/30/2024 10:39:23 0.9 0.0-6.0 (%) Final Basos 01/30/2024 10:39:23 0.2 0.0-2.0 (%) Final Immature Granulocyte, Percent 01/30/2024 10:39:23 0.3 0.0-2.0 (%) Final Absolute Segs 01/30/2024 10:39:23 6.14 1.80-7.70 (K/uL) Final Lymphs, absolute 01/30/2024 10:39:23 2.96 1.00-4.80 (K/ul) Final Monos, Abs 01/30/2024 10:39:23 0.65 0.00-1.10 (K/uL) Final Eos, Abs 01/30/2024 10:39:23 0.09 0.00-0.70 (K/uL) Final Basos, Abs 01/30/2024 10:39:23 0.02 0.00-0.20 (K/uL) Final Immature Granulocytes, Number 01/30/2024 10:39:23 0.03 0.00-0.20 (K/uL) Final Performing Location [facility] [place] [address] [facility] [address]
--- OUTSIDE RECORDS SUMMARY | 2024-04-08 23:44 | External Medical Summary | Summary of Care ---
Author Name Unknown Organization [facility] Address [address] [place] [address] Phone [phone] Care Team Providers Care Admission Nurse Coordinator Name Role Phone Rashaun Knutson MD Primary Care Provider [phone] Reason for Visit * Reason Comments eRx-Medication Refill Encounter Details Date Type Department Care Team ([facility] st Contact Info) Description 12/21/2023 Refill Family Practice [address] [phone] Rashaun Knutson MD [address] [place] [phone] BPH with obstruction/lower urinary tract symptoms; Type 2 diabetes mellitus with hemoglobin A1c goal of less than or equal to 9.0% ([facility]) Allergies No known active allergiesdocumented as of this encounter (statuses as of 12/22/2023) Medications Medication Sig Dispensed Refills Start Date [...] TabletIndication s:DM type 2 nursing care encounter ([facility]) Take 1 Tab by mouth daily. 30 Tab 1 Active Vitamin D (Ergocalciferol) 1.25 MG (76288 UT) Oral Capsule Take 1 Cap by [...] hemoglobin A1c goal of less than 8.5% ([facility]) USE WITH SOLARSTAR PEN 100 Each 2 3 Active predniSONE 20 MG Oral Tablet (Deltasone)Indic ations:Bronchiti s, complicated Take 2 tabs for 3 days, 1 tab for 3 days, 1/2 tab for 3 days 11 Tablet 4 Active Famotidine 20 MG Oral Tablet (Pepcid)Indicati ons:Abdominal pain, epigastric TAKE 1 TABLET BY MOUTH TWICE DAILY NEEDED FOR HEARTBURN 180 Tablet 1 4 Active Lisinopril 10 MG Oral Tablet [...] needed for pain. 120 Tablet 4 Active metFORMIN HCl ER 500 MG Oral Tablet Extended Release 24 Hour (Glucophage XR)Indications:T ype 2 diabetes mellitus with hemoglobin A1c goal of less than or equal to 9.0% (HCC) TAKE 2 TABLETS BY MOUTH WITH BREAKFAST AND WITH DINNER 360 Tablet 4 Active Insulin Glargine Solostar 100 [...] of less than or equal to 9.0% ([facility]) TAKE 1 TABLET BY MOUTH IN THE MORNING 90 Tablet 1 4 Active Tamsulosin HCl 0.4 MG Oral Capsule (Flomax)Indicati ons:BPH with obstruction/lowe r urinary tract symptoms Take 1 capsule by mouth in the morning 90 Capsule 1 4 12/22/19 24 Discontinued Atorvastatin Calcium 40 MG Oral Tablet (Lipitor)Indicat ions:Type 2 diabetes mellitus with hemoglobin A1c goal of less than or equal to 9.0% ([facility]) TAKE 1 TABLET BY MOUTH IN THE MORNING 90 Tablet 1 4 12/22/19 24 Discontinued documented as of this encounter (statuses as of 12/22/2023) Active Problems Problem Noted Date Diagnosed Date [...] as of this encounter (statuses as of 12/22/2023) Resolved Problems Problem Noted Date Diagnosed Date [...] as of this encounter (statuses as of 12/22/2023) Immunizations Name Administration Dates Next Due COVID-19 mRNA, LNP-s, No Pre serve, 2-Dose Series (ContentRealtime) 02/13/2021,06/14/2020,05/24/2020 COVID-19, MRNA-LNP, 23-24, P F, 30 MCG/0.3 mL, 12 YRS AND ABOVE, IM (PFIZER-Comirnaty) 02/11/2023 Covid-19, Mrna, Lnp-s, Pf, B ivalent, 30 Mcg, IM, 12 yrs and above (Pfizer) 02/11/2022 H1N1 2009 Influenza, IM 03/19/2009 Hepatitis B, 20+ yrs 05/01/2017,11/20/2016,10/18 Pneumococcal Conjugate Vacc, 13 Valent (Prevnar) 02/15/2019,11/08/2015 Pneumococcal Polysaccharide PPV23 (Pneumovax) 04/03/2006 Seasonal Influenza, PF, 6 M & above, IM , (FluLaval or Fluzone) 02/11/2022,01/24/2021,01/19/2018 Seasonal Influenza, Quadriva lent, No Preserve, IM 01/23/2020,02/15/2019,02/03/2018,01/18 Seasonal Influenza, Quadriva lent, No Preserve, Mdck 01/23/2017 Seasonal Influenza, Recombin ant, RIV4, PF, (Flublock) 01/09/2023 Seasonal Influenza, Split, I IV3, With Preserve, Inj 2015,02/11/2014,04/15/2013,01/17,03/19/2011,02/27/2010,02/15/20 09,03/23/2008,04/01/2007,04/03/2006 03/19/2012 TDAP (age 10 and [...] encounter Miscellaneous Notes * Telephone Encounter - Davion Crisostomo [facility] - 12/22/2023 10:53 AM EDT Signed Prescriptions: Disp Refills Tamsulosin HCl 0.4 MG Oral Capsule (Flomax)90 Cap*1 Sig: Take 1 capsule by mouth in the morningAuthorizing Provider: Jonna KNUTSON User: DAVION CRISOSTOMO Atorvastatin Calcium 40 MG Oral Tablet (Li*90 Tab*1 Sig: TAKE 1 TABLET BY MOUTH IN THE MORNINGAuthorizing Provider: Jonna KNUTSON User: DAVION CRISOSTOMO documented in this encounter Plan of Treatment Upcoming Encounters Date Type Department Care Team ([facility] Contact Info) Description 12/31/2023 6:10 PM EDT Pharmacy Pharmacy [address] [phone] Pharmacist1, [facility] [address] [address] 01/13/2024 10:00 AM EDT Telemedicine Family Practice [address] [phone] Rashaun Knutson MD [address] [place] [phone] Scheduled Orders Name Type Priority Associated Diagnoses Orde r Schedule LIPID PANEL WITH DIRECT LDL IF TG IS HIGH Lab Routine Type 2 diabetes mellitus with hemoglobin A1c goal of less than or equal to 9.0% ([facility]) Expected: 12/29/2023 (Approximate), Expires: 12/28/2024 Health Maintenance Due Date Last Done Comments Colonoscopy 2003 Fecal Occult Blood Test 2003 Sigmoidoscopy 2003 Cologuard 08/30/2020 08/30/2017, 08/26/2017 Colorectal Cancer Screening 08/30/2020 Diabetic Foot Exam 07/12/2022 07/12/2021, 0 06/12/2020, 04/26/2019, Additional history exists Pneumococcal Vaccine: 65+ Years (3 of 3 - PPSV23 or PCV20) 2023 02/15/2019, 11/08/2015, 04/03/2006 Depression Screening 02/11/2023 02/11/2022 COVID-19 Vaccine ( season) 2023 02/11/2023, 02/11/2023, 02/11/2022, Additional history exists HbA1c 09/22/2023 03/24/2023, 04/2 05/2022, 02/04/2022, Additional history exists Diabetic Eye Exam 12/28/2023 12/27/2022, , 06/12/2020, Additional history exists Influenza Vaccine (FLU shot) (#1) 2024 01/09/2023, 02/11/2022, 01/24/2021, Additional history exists Albumin/Creatinine Ratio 03/24/2024 023, 02/04/2022, 10/13/2020, Additional history exists B-12 03/24/2024 03/24/2023, 01/17, 03/07/2021, Additional history exists GFR 03/24/2024 03/24/2023, 01/17, 07/06/2021, Additional history exists Lipid Panel 03/24/2028 03/24/2023, 06/19, 10/13/2020, Additional history exists DTaP,Tdap,and Td Vaccines (3 - Td or Tdap) 02/12/2032 02/11/2022, 01/29/2012 Hepatitis C Screening Completed 10/15/2016 Hepatitis B Vaccine Completed 05/01/2017, 11/20/2016, 10/18/2016 Zoster Vaccines Completed 01/14/2018, 10/14/2017 HPV (Gardasil) Vaccine Aged Out No lo nger eligible based on patient's age to complete this topic MENINGOCOCCAL (MENACTRA/MENVEO) Aged Out No longer eligible based on patient's age to complete this topic documented as of this encounter Medical Devices Not on filedocumented as of this encounter Visit Diagnoses Diagnosis BPH with obstruction/lower urinary tract symptoms Hypertrophy of prostate with urinary obstruction and other lower urinary tract symptoms (LUTS) Type 2 diabetes mellitus with hemoglobin A1c goal of less than or equal to 9.0% (HCC) documented in this encounter Care Teams Admission Nurse Coordinator Relationship Specialty Start Date End Date Rashaun Knutson MD [address] [place] [phone] PCP - General Family Medicine 07/24/15 documented as of this encounter
--- OUTSIDE RECORDS SUMMARY | 2024-04-08 23:44 | External Medical Summary | Summary of Care ---
Author Name Unknown Organization [facility] Address [address] [place] [address] Phone [phone] Care Team Providers Care Maintenance Mechanic Engine Name Role Phone Rashaun Knutson MD Primary Care Provider [phone] Reason for Visit * Reason Onset Date Comments Medication Refill 11/04/2023 Encounter Details Date Type Department Care Team ([facility] Contact Info) Description 11/04/2023 Refill Family [address] [phone] Rashaun Knutson MD [address] [place] [phone] Allergies No known active allergiesdocumented as of this encounter (statuses as of 11/04/2023) Medications Medication Sig Dispensed Refills Start Date [...] Kit 03/20/2020 Active Aspirin 81 MG Oral TabletIndications :DM type 2 nursing care encounter (HCC) Take 1 Tab by mouth daily. 30 Tab 10/04/2020 Active Vitamin D (Ergocalciferol) 1.25 MG (25036 UT) Oral Capsule Take 1 Cap by mouth once a week. 12 Cap 3 03/14/2021 Active Trulicity 3 MG/0.5ML Subcutaneous Solution Pen-injector (Dulaglutide) Inject 3 mg under the skin once a week. Dose reduction from Trulicity 4.5mg due to back order 6 mL 2 06/13/2022 Active Insulin Glargine Solostar 100 UNIT/ML Subcutaneous Solution Pen-injector (Lantus SoloStar)Indicati ons:Type 2 diabetes mellitus with hemoglobin A1c goal of less than or equal to 9.0% ([facility]) INJECT 45 UNITS SUBCUTANEOUSLY IN THE MORNING AND 40 UNITS AT NIGHT DX E11.9 - please fill edie 90 mL 3 01/05/2023 Active Trulicity 4.5 MG/0.5ML Subcutaneous Solution Pen-injector (Dulaglutide) Inject 4.5 mg under the skin once a week. 6 mL 3 03/12/2023 Active BD Pen Needle Kavita 2nd Gen 32G X 4 MM (Insulin Pen Needle)Indication s:Type 2 diabetes mellitus with hemoglobin A1c goal of less than 8.5% ([facility]) USE WITH SOLARSTAR PEN 100 Each 2 03/28/2023 Active predniSONE 20 MG Oral Tablet (Deltasone)Indica tions:Bronchitis, complicated Take 2 tabs for 3 days, 1 tab for 3 days, 1/2 tab for 3 days 11 Tablet 06/23/2023 Active Tamsulosin HCl 0.4 MG Oral Capsule (Flomax)Indicatio ns:BPH with obstruction/lower urinary tract symptoms Take 1 capsule by mouth in the morning 90 Capsule 1 06/30/2023 Active Atorvastatin Calcium 40 MG Oral Tablet (Lipitor)Indicati ons:Type 2 diabetes mellitus with hemoglobin A1c goal of less than or equal to 9.0% ([facility]) TAKE 1 TABLET BY MOUTH IN THE MORNING 90 Tablet 1 06/30/2023 Active Famotidine 20 MG Oral Tablet (Pepcid)Indicatio ns:Abdominal pain, epigastric TAKE 1 TABLET BY MOUTH TWICE DAILY NEEDED FOR HEARTBURN 180 Tablet 1 07/17/2023 Active HYDROcodone-Aceta minophen 7.5-325 MG Oral TabletIndications :Disc disorder of lumbar region,MEDICATION USE AGREEMENT Take 1 Tablet by mouth every 6 hours as needed (as needed). 1 pill every 6 hours as needed for pain. 120 Tablet 08/05/2023 Active metFORMIN HCl ER 500 MG Oral Tablet Extended Release 24 Hour (Glucophage XR)Indications:Ty pe 2 diabetes mellitus with hemoglobin A1c goal of less than or equal to 9.0% (HCC) TAKE 2 TABLETS BY MOUTH WITH BREAKFAST AND WITH DINNER 360 Tablet 08/21/2023 Active Lisinopril 10 MG Oral Tablet (Prinivil)Indicat ions:HTN, goal below 140/90 Take 1 Tablet by mouth in the morning. 90 Tablet 3 10/28/2023 Active hydroCHLOROthiazi de 25 MG Oral Tablet (Hydrodiuril)Ann cations:HTN, goal below 140/90 Take 1 Tablet by mouth in the morning. 90 Tablet 3 10/28/2023 Active glipiZIDE ER 10 MG Oral Tablet Extended Release 24 Hour (glipiZIDE XL) Take 2 Tablets by mouth in the morning. 200 Tablet 3 11/04/2023 Active glipiZIDE ER 10 MG Oral Tablet Extended Release 24 Hour (glipiZIDE XL) Take 2 Tablets by mouth in the morning. 200 Tablet 3 11/18/2022 11/04/19 24 Discontinu ed(Refill) documented as of this encounter (statuses as of 11/04/2023) Active Problems Problem Noted Date Diagnosed Date [...] as of this encounter (statuses as of 11/04/2023) Resolved Problems Problem Noted Date Diagnosed Date [...] as of this encounter (statuses as of 11/04/2023) Immunizations Name Administration Dates Next Due COVID-19 mRNA, LNP-s, No Pre serve, 2-Dose Series ([employer]) 02/13/2021,06/14/2020,05/24/2020 COVID-19, MRNA-LNP, 23-24, P F, 30 MCG/0.3 mL, 12 YRS AND ABOVE, IM ([employer]-Comirnat) 02/11/2023 Covid-19, Mrna, Lnp-s, Pf, B ivalent, [...] money to get more. Never true 06/23/2023 Sex and Gender Information Value Date Recorded Sex Assigned at Not on file Gender Identity Male 06/23/2023 3:30 PM EST Sexual Orientation Not on file Job Start Date Occupation Industry Not on file Not on file Not on file documented as of this encounter Miscellaneous Notes * Telephone Encounter - Rashaun Knutson MD - 11/04/2023 11:20 AM EDTSigned Prescriptions: Disp Refills glipiZIDE ER 10 MG Oral Tablet Extended Re*200 Ta*3 Sig: Take 2 Tablets by mouth in the morning. Authorizing Provider: RASHAUN KNUTSON * Telephone Encounter - Kathryn Holm [facility] - 11/04/2023 8:55 AM EDT Fax request from Khalif Juarez documented in this encounter Plan of Treatment Upcoming Encounters Date Type Department Care Team ([facility] Contact Info) Description 11/05/2023 6:10 PM EDT Pharmacy Pharmacy [address] [phone] Pharmacist1, [facility] [address] [address] 12/23/2023 10:00 AM EDT Telemedicine Family [address] [phone] Rashaun Knutson MD [address] [place] [address] Health Maintenance Due Date Last Done Comments [...] 12/28/2023 12/27/2022, , 06/12/2020, Additional history exists Albumin/Creatinine Ratio 03/24/2024 023, 02/04/2022, 10/13/2020, Additional history exists B-12 03/24/2024 03/24/2023, 01/17, 03/07/2021, Additional history exists GFR 03/24/2024 03/24/2023, 01/17, 07/06/2021, Additional history exists Lipid Panel 03/24/2028 03/24/2023, 06/19, 10/13/2020, Additional history exists DTaP,Tdap,and Td Vaccines (3 - Td or Tdap) 02/12/2032 02/11/2022, 01/29/2012 Hepatitis C Screening Completed 10/15/2016 Hepatitis B Completed 05/01/2017, 07/09/2016, 10/18/2016 Zoster Vaccines Completed 01/14/2018, 10/14/2017 Influenza Vaccine (FLU shot) Completed , 02/11/2022, 01/24/2021, Additional history exists GARDASIL-HPV IMMUNIZATION SERIES Aged Out No longer eligible based on patient's age to complete this topic MENINGOCOCCAL (MENACTRA/MENVEO) Aged Out No longer eligible based on patient's age to complete this topic documented as of this encounter Medical Devices Not on filedocumented as of this encounter Care Teams Maintenance Mechanic Engine Relationship Specialty Start Date End Date Rashaun Knutson MD [address] [place] [address] PCP - General Family Medicine 07/24/15 documented as of this encounter
--- OUTSIDE RECORDS SUMMARY | 2024-04-08 23:44 | External Medical Summary ---
Author Name Unknown Address Unknown Organization [id number][place] [place] [address] [place] [address] Laboratory Report Ordering Provider Test Date Status ZENIA LEAL 01/30/2024 10:39:23 Final Normal: <30 mg/g creatinine< br/>High: 30-300 mg/g creatinine
Very High: >300 mg/g creatinine
Nephrotic: >2200 mg/g creatinine Observation Date Value Abnormality Reference (Units ) Status Albumin, Urine 01/30/2024 10:39:23 2.00 (mg/dL) Final Creatinine, Urine 01/30/2024 10:39:23 181 (mg/dL) Final Albumin/Creatinine [Mass Ratio] in Urine 01/30/2024 10:39:23 11 <30 (mg/g Creat) Final Performing Location [facility] [place] [address] [place] [address]
--- OUTSIDE RECORDS SUMMARY | 2024-04-08 23:44 | External Medical Summary ---
Author Name Unknown Address Unknown Organization [id number]:[facility] [place] - [address] [facility] [address] Laboratory Report Ordering Provider Test Date Status ZENIA LEAL 01/30/2024 10:39:23 Final Observation Date Value Abnormality Reference (Units ) Status WBC, Total 01/30/2024 10:39:23 9.89 4.00-10.80 (K/uL) Final RBC 01/30/2024 10:39:23 4.35 4.50-5.25 (M/uL) Final Hemoglobin 01/30/2024 10:39:23 13.4 Below low normal 14.0-16.8 (g/dL) Final HCT 01/30/2024 10:39:23 39.4 Below low normal 40.0-48.4 (%) Final MCV 01/30/2024 10:39:23 90.6 82.0-99.5 (fL) Final MCH 01/30/2024 10:39:23 30.8 27.0-34.0 (pg) Final MCHC 01/30/2024 10:39:23 34.0 32.0-36.0 (g/dL) Final RDW 01/30/2024 10:39:23 13.2 11.5-15.5 (%) Final Platelets 01/30/2024 10:39:23 189 140-400 (K/uL) Final MPV 01/30/2024 10:39:23 10.4 6.6-11.1 (fL) Final Nucleated erythrocytes/100 leukocytes [Ratio] in Blood by Automated count 01/30/2024 10:39:23 0 <=0 (/100 WBCs) Final Performing Location [facility] [place] - [address] [facility] [address]
--- OUTSIDE RECORDS SUMMARY | 2024-04-08 23:44 | External Medical Summary | Summary of Care ---
Author Name Unknown Organization [facility] Address [address] [place] [address] Phone [phone] Care Team Providers Care Routing Machine Operator Name Role Phone Rashaun Marinelli MD Primary Care Provider [phone] Reason for Visit * Reason Comments Appointment Encounter Details Date Type Department Care Team ([facility] st Contact Info) Description 12/03/2023 6:10 PM EDT Pharmacy Pharmacy [address] [phone] Pharmacist1, [facility] [address] [address] Type 2 diabetes mellitus with hemoglobin A1c goal of less than or equal to 9.0% ([facility])* Allergies No known active allergiesdocumented as of this encounter (statuses as of 12/03/2023) Medications Medication Sig Dispensed Refills Start Date [...] 10/04/2020 Active Vitamin D (Ergocalciferol) 1.25 MG (92031 UT) Oral Capsule Take 1 Cap by [...] of less than or equal to 9.0% ([facility]) INJECT 45 UNITS SUBCUTANEOUSLY IN [...] goal of less than 8.5% ([facility]) USE WITH SOLARSTAR PEN 100 [...] of less than or equal to 9.0% ([facility]) TAKE 1 TABLET BY MOUTH IN THE MORNING 90 Tablet 1 06/30/2023 Active Famotidine 20 MG Oral Tablet (Pepcid)Indication s:Abdominal pain, epigastric TAKE 1 TABLET BY MOUTH TWICE DAILY NEEDED FOR HEARTBURN 180 Tablet 1 07/17/2023 Active Lisinopril 10 MG Oral Tablet (Prinivil)Indicati [...] AND WITH DINNER 360 Tablet 11/14/2023 Active documented as of this encounter (statuses as of 12/03/2023) Active Problems Problem Noted Date Diagnosed Date [...] as of this encounter (statuses as of 12/03/2023) Resolved Problems Problem Noted Date Diagnosed Date [...] as of this encounter (statuses as of 12/03/2023) Immunizations Name Administration Dates Next Due COVID-19 mRNA, LNP-s, No Pre serve, 2-Dose Series ([employer]) 02/13/2021,06/14/2020,05/24/2020 COVID-19, MRNA-LNP, 23-24, P F, 30 MCG/0.3 mL, 12 YRS AND ABOVE, IM ([facility]) 02/11/2023 Covid-19, Mrna, Lnp-s, Pf, B ivalent, [...] Influenza, Split, I IV3, With Preserve, Inj 2015,02/11/2014,04/15/2013,01/17,03/19/2011,02/27/2010,02/15/20,03/23/2008,04/01/2007,04/03/2006 03/19/2012 TDAP (age 10 and older)([employer]) [...] on file documented as of this encounter Progress Notes * Georgina Sin sales training manager - 12/03/2023 8:55 AM EDT Patient Phone Numbers Left message on patients answering machine to schedule [facility] appointment for diabetes management. [facility] message sent --no Clinic will follow up again in 4 week(s). [Attempt # 3] Thank you, Georgina Sin [facility] Senior Credit Analyst II [facility] ([facility]) 12/03/2023,8:55 AM documented in this encounter Plan of Treatment Upcoming Encounters Date Type Department Care Team ([facility] Contact Info) Description 12/31/2023 6:10 PM EDT Pharmacy Pharmacy [facility], [address] [place] [phone] Pharmacist1, [facility] [address] [place] [address] 01/13/2024 10:00 AM EDT Telemedicine Family Practice [facility] [address] [place] [address] Rashaun Marinelli MD [address] [place], [place] [address] [phone] Health Maintenance Due Date Last Done Comments [...] 02/11/2022, Additional history exists HbA1c 09/22/2023 03/24/2023, 08/18, 02/04/2022, Additional history [...] of less than or equal to 9.0% (HCC)- Primary documented in this encounter Care Teams Routing Machine Operator Relationship Specialty Start Date End Date Rashaun Marinelli MD [address] [place] [phone] PCP - General Family Medicine 07/24/15 documented as of this encounter
--- OUTSIDE RECORDS SUMMARY | 2024-04-08 23:44 | External Medical Summary | Summary of Care ---
Author Name Unknown Organization [facility] Address [address] [place] [address] Phone [phone] Care Team Providers Care Microbiology Technician Name Role Phone Rashaun Marinelli MD Primary Care Provider [phone] Reason for Visit * Reason Comments Outpatient Testing Encounter Details Date Type Department Care Team (Late st Contact Info) Description 01/30/2024 11:00 AM EDT Laboratory [facility] [phone] [facility] [address] [address] Type 2 diabetes mellitus with hemoglobin A1c goal of less than or equal to 9.0% ([facility]); Other terminal press operator (current) drug therapy; Intervertebral disc disorders with [...] 10/04/2020 Active Vitamin D (Ergocalciferol) 1.25 MG (80638 UT) Oral Capsule Take 1 Cap by [...] hemoglobin A1c goal of less than 8.5% ([facility]) USE WITH SOLARSTAR PEN 100 Each 2 [...] of less than or equal to 9.0% ([facility]) TAKE 2 TABLETS BY MOUTH WITH BREAKFAST [...] mRNA, LNP-s, No Pre serve, 2-Dose Series ([employer]) 02/13/2021,06/14/2020,05/24/2020 COVID-19, MRNA-LNP, 23-24, P F, 30 MCG/0.3 mL, 12 YRS AND ABOVE, IM ([facility]) 02/11/2023 Covid-19, Mrna, Lnp-s, Pf, B ivalent, 30 Mcg, IM, 12 yrs and above ([employer]) 02/11/2022 H1N1 2009 Influenza, IM 03/19/2009 Hepatitis B, 20+ yrs 05/01/2017,11/20/2016,10/18 Pneumococcal Conjugate Vacc, 13 Valent (Prevnar) 02/15/2019,11/08/2015 Pneumococcal Conjugate Vacci ne, 20-valent ([id number]) 01/16/2024 Pneumococcal Polysaccharide PPV23 (Pneumovax) 04/03/2006 Seasonal [...] Upcoming Encounters Date Type Department Care Team ([facility] Contact Info) Description 01/30/2024 11:20 AM EDT Nurse Only Ancillary [address] [phone] Havelatisha, Nurse g [address] [address] Arrived 07/19/2024 12:00 PM EST Office Visit Family [address] [place] [phone] Rashaun Marinelli MD [address] [place] [phone] Pending Results Name Type Priority Associated Diagnoses Date /Time 25-HYDROXY VITAMIN D Lab Routine Type 2 diabetes mellitus with hemoglobin A1c goal of less than or equal to 9.0% ([facility]) Other fdc (current) drug therapy 01/30/2024 10:39 AM EDT VITAMIN B12 Lab Routine Type 2 diabetes mellitus with hemoglobin A1c goal of less than or equal to 9.0% ([facility]) Other fdc (current) drug therapy 01/30/2024 10:39 AM EDT HEMOGLOBIN A1C Lab Routine Type 2 diabetes mellitus with hemoglobin A1c goal of less than or equal to 9.0% ([facility]) 01/30/2024 10:39 AM EDT COMPREHENSIVE METABOLIC PANEL Lab Routine Type 2 diabetes mellitus with hemoglobin A1c goal of less than or equal to 9.0% ([facility]) 01/30/2024 10:39 AM EDT LIPID PANEL WITH DIRECT LDL IF TG IS HIGH Lab Routine Type 2 diabetes mellitus with hemoglobin A1c goal of less than or equal to 9.0% ([facility]) 01/30/2024 10:39 AM EDT CBC WITH WBC DIFFERENTIAL Lab Routine Type 2 diabetes mellitus with hemoglobin A1c goal of less than or equal to 9.0% ([facility]) 01/30/2024 10:39 AM EDT ALBUMIN / CREATININE RATIO, URINE Lab Routine Type 2 diabetes mellitus with hemoglobin A1c goal of less than or equal to 9.0% ([facility]) 01/30/2024 10:39 AM EDT PAIN MANAGEMENT DRUG PANEL, URINE W/ INTERPRETATION Lab Routine Intervertebral disc disorders with radiculopathy, lumbar region 01/30/2024 10:39 AM EDT CBC Lab Routine Type 2 diabetes mellitus with hemoglobin A1c goal of less than or equal to 9.0% ([facility]) 01/30/2024 10:39 AM EDT DIFFERENTIAL, AUTOMATED Lab Routine Type 2 diabetes mellitus with hemoglobin A1c goal of less than or equal to 9.0% ([facility]) 01/30/2024 10:39 AM EDT Health Maintenance Due Date Last Done Comments Colonoscopy 2003 Fecal Occult Blood Test 2003 Sigmoidoscopy 2003 Cologuard 08/30/2020 08/30/2017, 08/26/2017 Colorectal Cancer Screening 08/30/2020 Diabetic Foot Exam 07/12/2022 07/12/2021, 0 06/12/2020, 04/26/2019, Additional history exists Depression Screening 02/11/2023 02/11/2022 HbA1c 09/22/2023 03/24/2023, 04/2 05/2022, 02/04/2022, Additional [...] than or equal to 9.0% (HCC) Other fdc (current) drug therapy Intervertebral disc disorders with radiculopathy, lumbar region documented in this encounter Care Teams Microbiology Technician Relationship Specialty Start Date End Date [place] [address] PCP - General Family Medicine 07/24/15 documented as of this encounter
--- OUTSIDE RECORDS SUMMARY | 2024-04-08 23:44 | External Medical Summary ---
Author Name Unknown Address Unknown Organization K01:[facility] [place] [address] [place] [address] Laboratory Report Ordering Provider Test Date Status CANDACE CARDONA 01/30/2024 10:39:23 Final Observation Date Value Abnormality Reference (Units ) Status Vitamin B12 01/30/2024 10:39:23 665 129-1987 (pg/mL) Final Performing Location LABORATORY [facility] - [address] [place] [address]
--- OUTSIDE RECORDS SUMMARY | 2024-04-08 23:44 | External Medical Summary | Summary of Care ---
Author Name Unknown Organization [facility] Address [address] [place] [address] Phone [phone] Care Team Providers Care High School Coordinator Name Role Phone Rashaun Knutson MD Primary Care Provider [phone] Reason for Visit * Reason Comments eRx-Medication Refill Encounter Details Date Type Department Care Team ([facility] st Contact Info) Description 01/10/2024 Refill Family [address] [phone] Rashaun Knutson MD [address] [place] [address] [phone] Abdominal pain, epigastric Allergies No known active allergiesdocumented as of this encounter (statuses as of 01/12/2024) Medications Medication Sig Dispensed Refills Start Date [...] 1 Active Vitamin D (Ergocalciferol) 1.25 MG (06819 UT) Oral Capsule Take 1 Cap by [...] hemoglobin A1c goal of less than 8.5% ([facility]) USE WITH SOLARSTAR PEN 100 [...] HEARTBURN . 180 Tablet 1 4 Active Famotidine 20 MG Oral Tablet (Pepcid)Indicati ons:Abdominal pain, epigastric TAKE 1 TABLET BY MOUTH TWICE DAILY NEEDED FOR HEARTBURN 180 Tablet 1 4 01/12/20 24 Discontinued documented as of this encounter (statuses as of 01/12/2024) Active Problems Problem Noted Date Diagnosed Date [...] as of this encounter (statuses as of 01/12/2024) Resolved Problems Problem Noted Date Diagnosed Date [...] as of this encounter (statuses as of 01/12/2024) Immunizations Name Administration Dates Next Due COVID-19 mRNA, LNP-s, No Pre serve, 2-Dose Series ([employer]) 02/13/2021,06/14/2020,05/24/2020 COVID-19, MRNA-LNP, 23-24, P F, 30 MCG/0.3 mL, 12 YRS AND ABOVE, IM ([facility]) 02/11/2023 Covid-19, Mrna, Lnp-s, Pf, B ivalent, [...] encounter Miscellaneous Notes * Telephone Encounter - Thad Correa RPh - 01/12/2024 1:37 PM EDTSigned Prescriptions: Disp Refills Famotidine 20 MG Oral Tablet (Pepcid) 180 Ta*1 Sig: TAKE 1 TABLET BY MOUTH TWICE DAILY NEEDED FOR HEARTBURN .Authorizing Provider: Jonna KNUTSON User: THAD CORREA documented in this encounter Plan of Treatment Upcoming Encounters Date Type Department Care Team (Late st Contact Info) Description 01/13/2024 10:00 AM EDT Telemedicine Family [facility] [address] [place] [address] Rashaun Knutson MD [address] [place], [place] [address] [phone] Health Maintenance Due Date Last Done Comments [...] as of this encounter Visit Diagnoses Diagnosis Abdominal pain, epigastric documented in this encounter Care Teams High School Coordinator Relationship Specialty Start Date End Date Rashaun Knutson MD [address] [place] [phone] PCP - General Family Medicine 07/24/15 documented as of this encounter
--- OUTSIDE RECORDS SUMMARY | 2024-04-08 23:44 | External Medical Summary | Summary of Care ---
Author Name Unknown Organization [facility] Address [address] [place] [address] Phone [phone] Care Team Providers Care Ferryboat Captain Name Role Phone Rashaun Knutson MD Primary Care Provider [phone] Reason for Visit * Reason Comments eRx-Medication Refill Encounter Details Date Type Department Care Team ([facility] st Contact Info) Description 11/14/2023 Refill Pharmacy [address] [phone] Andriy Martínez MD [address] [place] [address] Type 2 diabetes mellitus with hemoglobin A1c goal of less than or equal to 9.0% ([facility]) Allergies No known active allergiesdocumented as of this encounter (statuses as of 11/14/2023) Medications Medication Sig Dispensed Refills Start Date [...] 1 Active Vitamin D (Ergocalciferol) 1.25 MG (03122 UT) Oral Capsule Take 1 Cap by mouth once a week. 12 Cap 3 1 Active Trulicity 3 MG/0.5ML Subcutaneous Solution Pen-injector (Dulaglutide) Inject 3 mg under the skin once a week. Dose reduction from Trulicity 4.5mg due to back order 6 mL 2 3 Active Insulin Glargine Solostar 100 UNIT/ML Subcutaneous Solution Pen-injector (Lantus SoloStar)Indicat ions:Type 2 diabetes mellitus with hemoglobin A1c goal of less than or equal to 9.0% ([facility]) INJECT 45 UNITS SUBCUTANEOUSLY IN THE MORNING AND 40 UNITS AT NIGHT DX E11.9 - please fill edie 90 mL 3 3 Active Trulicity 4.5 MG/0.5ML Subcutaneous Solution Pen-injector (Dulaglutide) Inject 4.5 mg under the skin once a week. 6 mL 3 3 Active BD Pen Needle Kavita 2nd Gen 32G X 4 MM (Insulin Pen Needle)Indicatio ns:Type 2 diabetes mellitus with hemoglobin A1c goal of less than 8.5% ([facility]) USE WITH SOLARSTAR PEN 100 Each 2 3 Active predniSONE 20 MG Oral Tablet (Deltasone)Indic ations:Bronchiti s, complicated Take 2 tabs for 3 days, 1 tab for 3 days, 1/2 tab for 3 days 11 Tablet 4 Active Tamsulosin HCl 0.4 MG Oral Capsule (Flomax)Indicati ons:BPH with obstruction/lowe r urinary tract symptoms Take 1 capsule by mouth in the morning 90 Capsule 1 4 Active Atorvastatin Calcium 40 MG Oral Tablet (Lipitor)Indicat ions:Type 2 diabetes mellitus with hemoglobin A1c goal of less than or equal to 9.0% ([facility]) TAKE 1 TABLET BY MOUTH [...] AND WITH DINNER 360 Tablet 4 Active metFORMIN HCl ER 500 MG Oral Tablet Extended Release 24 Hour (Glucophage XR)Indications:T ype 2 diabetes mellitus with hemoglobin A1c goal of less than or equal to 9.0% (HCC) TAKE 2 TABLETS BY MOUTH WITH BREAKFAST AND WITH DINNER 360 Tablet 4 11/14/19 24 Discontinued documented as of this encounter (statuses as of 11/14/2023) Active Problems Problem Noted Date Diagnosed Date [...] as of this encounter (statuses as of 11/14/2023) Resolved Problems Problem Noted Date Diagnosed Date [...] as of this encounter (statuses as of 11/14/2023) Immunizations Name Administration Dates Next Due COVID-19 mRNA, LNP-s, No Pre serve, 2-Dose Series ([employer]) 02/13/2021,06/14/2020,05/24/2020 COVID-19, MRNA-LNP, 23-24, P F, 30 [...] encounter Miscellaneous Notes * Telephone Encounter - Dulce Maria [facility] - 11/14/2023 3:20 PM EDTSigned Prescriptions: Disp Refills metFORMIN HCl ER 500 MG Oral Tablet Extend*360 Ta*0 Sig: TAKE 2 TABLETS BY MOUTH WITH BREAKFAST AND WITH DINNERAuthorizing Provider: Jonna KNUTSON User: DULCE MARIA documented in this encounter Plan of Treatment Upcoming Encounters Date Type Department Care Team ([facility] st Contact Info) Description 12/03/2023 6:10 PM EDT Pharmacy Pharmacy [address] [phone] Pharmacist1, [facility] [address] [address] 12/23/2023 10:00 AM EDT Telemedicine Family Practice [address] [phone] Rashaun Knutson MD [address] [place] [address] Health Maintenance Due Date Last Done Comments [...] Screening Completed 10/15/2016 Hepatitis B Completed 05/01/2017, 07/0 09/2016, 10/18/2016 Zoster Vaccines Completed 01/14/2018, 10/14/2017 Influenza [...] (HCC) documented in this encounter Care Teams Ferryboat Captain Relationship Specialty Start Date End Date Rashaun Knutson MD [address] [place] [address] PCP - General Family Medicine 07/24/15 documented as of this encounter
--- OUTSIDE RECORDS SUMMARY | 2024-04-08 23:44 | External Medical Summary ---
Author Name Unknown Address Unknown Organization K01:[facility] - [address] [facility] [address] Laboratory Report Ordering Provider Test Date Status CANDACE CARDONA 01/30/2024 10:39:23 Final Observation Date Value Abnormality Reference (Units ) Status BUN 01/30/2024 10:39:23 18 6-20 (mg/dL) Final Creatinine 01/30/2024 10:39:23 0.8 0.6-1.2 (mg/dL) Final Glomerular filtration rate/1.73 sq M.predicted [Volume Rate/Area] in Serum, Plasma or Blood by Creatinine-based formula (CKD-EPI) 01/30/2024 10:39:23 >90 >=60 (mL/min) Final eGFR is calculated based on the CKD-EPI 2020 equation. Sodium 01/30/2024 10:39:23 139 135-146 (m mol/L) Final Potassium 01/30/2024 10:39:23 4.7 3.5-5.1 (m mol/L) Final Cl 01/30/2024 10:39:23 99 98-107 (mm ol/L) Final CO2 01/30/2024 10:39:23 28 22-32 (mmo l/L) Final Anion gap 01/30/2024 10:39:23 12 7-15 (mmol /L) Final Glucose 01/30/2024 10:39:23 98 70-120 (mg /dL) Final Albumin 01/30/2024 10:39:23 4.5 3.8-5.0 (g /dL) Final AST (Aspartate aminotransferase) 01/30/2024 10:39:23 43 10-50 (U/L) Fin al Alk Phos 01/30/2024 10:39:23 63 35-130 (U/ L) Final Bilirubin, Total 01/30/2024 10:39:23 0.8 <=1 .2 (mg/dL) Final Calcium 01/30/2024 10:39:23 9.7 8.4-10.2 ( mg/dL) Final Protein 01/30/2024 10:39:23 7.1 6.0-8.3 (g /dL) Final ALT (Alanine aminotransferase) 01/30/2024 10:39:23 55 Above high normal 10-50 (U/L) Final Performing Location LABORATORY [facility] - [facility] [address] [facility] [address]
--- OUTSIDE RECORDS SUMMARY | 2024-04-08 23:44 | External Medical Summary | Summary of Care ---
Author Name Unknown Organization [facility] Address [address] [place] [address] Phone [phone] Care Team Providers Care Naval Aircrewman Name Role Phone Rashaun Knutson MD Primary Care Provider [phone] Reason for Visit * Reason Onset Date Comments Med Request 12/10/2023 Encounter Details Date Type Department Care Team ([facility] st Contact Info) Description 12/10/[address] [phone] Rashaun Knutson MD [address] [place] [address] Med Request Allergies No known active allergiesdocumented as of this encounter (statuses as of 12/11/2023) Medications Medication Sig Dispensed Refills Start Date [...] 10/04/2020 Active Vitamin D (Ergocalciferol) 1.25 MG (92286 UT) Oral Capsule Take 1 Cap by [...] hemoglobin A1c goal of less than 8.5% ([facility]) USE WITH SOLARSTAR PEN 100 [...] of less than or equal to 9.0% ([facility]) TAKE 1 TABLET BY MOUTH IN THE MORNING 90 Tablet 1 06/30/2023 Active Famotidine 20 MG Oral Tablet (Pepcid)Indicatio ns:Abdominal pain, epigastric TAKE 1 TABLET BY MOUTH TWICE DAILY NEEDED FOR HEARTBURN 180 Tablet 1 07/17/2023 Active Lisinopril 10 MG Oral Tablet (Prinivil)Indicat [...] the morning. 200 Tablet 3 11/04/2023 Active HYDROcodone-Aceta minophen 7.5-325 MG Oral TabletIndications [...] fill edie 90 mL 3 12/10/2023 Active Insulin Glargine Solostar 100 UNIT/ML Subcutaneous Solution Pen-injector (Lantus SoloStar)Indicati ons:Type 2 diabetes mellitus with hemoglobin A1c goal of less than or equal to 9.0% (HCC) INJECT 45 UNITS SUBCUTANEOUSLY IN THE MORNING AND 40 UNITS AT NIGHT DX E11.9 - please fill edie 90 mL 3 01/05/2023 12/10/19 Discontinu ed(Refill) documented as of this encounter (statuses as of 12/11/2023) Active Problems Problem Noted Date Diagnosed Date [...] as of this encounter (statuses as of 12/11/2023) Resolved Problems Problem Noted Date Diagnosed Date [...] as of this encounter (statuses as of 12/11/2023) Immunizations Name Administration Dates Next Due COVID-19 mRNA, LNP-s, No Pre serve, 2-Dose Series ([employer]) 02/13/2021,06/14/2020,05/24/2020 COVID-19, MRNA-LNP, 23-24, P F, 30 [...] encounter Miscellaneous Notes * Telephone Encounter - Xuan Vásquez CCMA - 12/11/2023 10:33 AM EDT Closing per Dr Knutson * Telephone Encounter - Rashaun Knutson MD - 12/10/2023 3:22 PM EDT Please call in the prescription to patients pharmacy and close encounter. Signed Prescriptions: Disp Refills Insulin Glargine Solostar 100 UNIT/ML Subc*90 mL 3 Sig: INJECT 45 UNITS SUBCUTANEOUSLY IN THE MORNING AND 40 UNITS AT NIGHT DX E11.9 - please fill edie Authorizing Provider: RASHAUN KNUTSON * Telephone Encounter - Danny Lucas LPN - 12/10/2023 9:50 AM EDT Pending Prescriptions: Disp Refills Insulin Glargine Solostar 100 UNIT/ML Sub*90 mL 3 Sig: INJECT 45 UNITS SUBCUTANEOUSLY IN THE MORNING AND 40 UNITS AT NIGHT DX E11.9 - please fill edie 02/11/2022 (in office), 06/23/2023 (telemedicine) 01/13/2024 * Telephone Encounter - Stas Love OSA - 12/10/2023 8:22 AM EDT Fax from [employer] [employer] in [place] requesting new rx Lantus Solostar Pen Inj documented in this encounter Plan of Treatment Upcoming Encounters Date Type Department Care Team ([facility] Contact Info) Description 12/31/2023 6:10 PM EDT Pharmacy Pharmacy [address] [phone] Pharmacist1, [facility] [address] [address] 01/13/2024 10:00 AM EDT Telemedicine Family Practice [address] [phone] Rashaun Knutson MD [address] [place] [phone] Health Maintenance Due Date Last Done Comments [...] 02/11/2022, Additional history exists HbA1c 09/22/2023 03/24/2023, 04/05/2022, 02/04/2022, Additional history exists Diabetic Eye Exam [...] of less than or equal to 9.0% ([facility]) documented in this encounter Care Teams Naval Aircrewman Relationship Specialty Start Date End Date Rashaun Knutson MD [address] [place] [phone] PCP - General Family Medicine 07/24/15 documented as of this encounter
--- OUTSIDE RECORDS SUMMARY | 2024-04-08 23:44 | External Medical Summary | Summary of Care ---
Author Name Unknown Organization [facility] Address [address] [place] [address] Phone [phone] Care Team Providers Care Card Doffer Name Role Phone Rashaun Marinelli MD Primary Care Provider [phone] Encounter Details Date Type Department Care Team (Late st Contact Info) Description 12/27/2023 Orders Only PATIENT PORTAL DO NOT DELETE THIS DEPT USED BY [place] [id number] Allergies No known active allergiesdocumented as of this encounter (statuses as of 12/27/2023) Medications Medication Sig Dispensed Refills Start Date [...] 10/04/2020 Active Vitamin D (Ergocalciferol) 1.25 MG (94663 UT) Oral Capsule Take 1 Cap by [...] for 3 days 11 Tablet 06/23/2023 Active Famotidine 20 MG Oral Tablet (Pepcid)Indication [...] THE MORNING 90 Tablet 1 12/22/2023 Active documented as of this encounter (statuses as of 12/27/2023) Active Problems Problem Noted Date Diagnosed Date [...] as of this encounter (statuses as of 12/27/2023) Resolved Problems Problem Noted Date Diagnosed Date [...] as of this encounter (statuses as of 12/27/2023) Immunizations Name Administration Dates Next Due COVID-19 mRNA, LNP-s, No Pre serve, 2-Dose Series ([employer]) 02/13/2021,06/14/2020,05/24/2020 COVID-19, MRNA-LNP, 23-24, P F, 30 MCG/0.3 mL, 12 YRS AND ABOVE, IM ([employer]) 02/11/2023 Covid-19, Mrna, Lnp-s, Pf, B ivalent, 30 Mcg, IM, 12 yrs and above ([employer]) 02/11/2022 H1N1 2009 Influenza, IM 03/19/2009 Hepatitis [...] Upcoming Encounters Date Type Department Care Team ([facility] Contact Info) Description 12/31/2023 6:10 PM EDT Pharmacy Pharmacy [address] [phone] Pharmacist1, [facility] [address] [address] 01/13/2024 10:00 AM EDT Telemedicine Family Practice [address] [phone] Rashaun Marinelli MD [address] [place] [address] Health Maintenance Due Date Last Done Comments [...] filedocumented as of this encounter Care Teams Card Doffer Relationship Specialty Start Date End Date Rashaun Marinelli MD [address] [place] [address] PCP - General Family Medicine 07/24/15 documented as of this encounter
--- OUTSIDE RECORDS SUMMARY | 2024-04-08 23:44 | External Medical Summary ---
Author Name Unknown Address Unknown Organization [id number]:LABORATORY [facility] [place] - [facility] [address] [facility] [address] Laboratory Report Ordering Provider Test Date Status ZENIA LEAL 01/30/2024 10:39:23 Final Drugs that require complianc e testing:

Opioids:
Hydrocodone 7.5 mg prn

Benzodiazepines
nil

Cutoff Concentrations:
Drug Level
Hydrocodone 40 ng/mL
Hydromorphone 40 ng/mL
Dihydrocodeine 40 ng/mL

This test was developed and its performance characteristics determined by [employer]. It has not been cleared or approved by the [place] Food and Drug Administration. Observation Date Value Abnormality Reference (Units ) Status METHODOLOGY 01/30/2024 10:39:23 LC-MS/MS Final HYDROcodone cutoff [Mass/volume] in Urine for Confirmatory method 01/30/2024 10:39:23 Negative Negative Final HYDROmorphone [Mass/volume] in Urine 01/30/2024 10:39:23 Negative Negative Final Dihydrocodeine [Mass/volume] in Urine by Confirmatory method 01/30/2024 10:39:23 Negative Negative Final Performing Location LAB[facility]ATORY [facility] - [facility] [address] [facility] [address]
--- OUTSIDE RECORDS SUMMARY | 2024-04-08 23:44 | External Medical Summary ---
Author Name Unknown Address Unknown Organization [id number]:[facility]ORY [facility] - [address] [place] [address] Laboratory Report Ordering Provider Test Date Status DULCECANDACE 01/30/2024 10:39:23 Final Deficient: <20 ng/mL
Ins ufficient: 20-29 ng/mL
Recommended/Optimum:30-50 ng/mL

Vitamin D intoxication is rare. If suspicious of Vitamin D toxicity, evaluation of serum Calcium and PTH is recommended. Observation Date Value Abnormality Reference (Units ) Status 25-OH Vitamin D total 01/30/2024 10:39:23 28 >19 (ng/mL) Final Performing Location [facility]ORY [facility] - [address] [place] [address]
--- OUTSIDE RECORDS SUMMARY | 2024-04-08 23:44 | External Medical Summary | Summary of Care ---
Author Name Unknown Organization [facility] Address [address] [place] [address] Phone [phone] Care Team Providers Care Diabetes Specialist Name Role Phone Rashaun Marinelli MD Primary Care Provider [phone] Reason for Visit * Reason Comments Appointment Encounter Details Date Type Department Care Team ([facility] st Contact Info) Description 11/05/2023 6:10 PM EDT Pharmacy Pharmacy [address] [phone] Pharmacist1, [facility] [address] [address] Type 2 diabetes mellitus with hemoglobin A1c goal of less than or equal to 9.0% ([facility])* Allergies No known active allergiesdocumented as of this encounter (statuses as of 11/05/2023) Medications Medication Sig Dispensed Refills Start Date [...] 10/04/2020 Active Vitamin D (Ergocalciferol) 1.25 MG (63568 UT) Oral Capsule Take 1 Cap by [...] FOR HEARTBURN 180 Tablet 1 07/17/2023 Active metFORMIN HCl ER 500 MG Oral [...] as needed for pain. 120 Tablet 08/05/2023 11/05/19 24 Discontinu ed(Refill) documented as of this encounter (statuses as of 11/05/2023) Active Problems Problem Noted Date Diagnosed Date [...] as of this encounter (statuses as of 11/05/2023) Resolved Problems Problem Noted Date Diagnosed Date [...] as of this encounter (statuses as of 11/05/2023) Immunizations Name Administration Dates Next Due COVID-19 mRNA, LNP-s, No Pre serve, 2-Dose Series ([employer]) 02/13/2021,06/14/2020,05/24/2020 COVID-19, MRNA-LNP, 23-24, P F, 30 [...] on file Are you (or your family) manyn eless or worried that you might be [...] as of this encounter Progress Notes * Deandra Valentine PHARM Tech - 11/05/2023 10:40 AM EDT Patient Phone Numbers Left message on patients answering machine to schedule [facility] appointment for diabetes management. [facility] message sent --no Clinic will follow up again in 4 week(s). [Attempt # 3] Thank you, Deandra Valentine Dinkey Operator [employer] ([facility] [phone] 11/05/2023,10:40 AM documented in this encounter Plan of Treatment Upcoming Encounters Date Type Department Care Team ([facility] st Contact Info) Description 12/03/2023 6:10 PM EDT Pharmacy Pharmacy [address] [phone] Pharmacist1, [facility] [address] [address] 12/23/2023 10:00 AM EDT Telemedicine Family Practice [facility] [address] [facility] [place] [phone] Rashaun Marinelli MD [address] [facility] [place] [address] Health Maintenance Due Date Last Done Comments [...] Screening Completed 10/15/2016 Hepatitis B Completed 05/01/2017, 09/2016, 10/18/2016 Zoster Vaccines Completed 01/14/2018, 10/14/2017 [...] Primary documented in this encounter Care Teams Diabetes Specialist Relationship Specialty Start Date End Date Rashaun Marinelli MD [address] [place] [address] [place] [phone] PCP - General Family Medicine 07/24/15 documented as of this encounter
--- OUTSIDE RECORDS SUMMARY | 2024-04-08 23:44 | External Medical Summary ---
Author Name Unknown Address Unknown Organization K01:[facility]ORY [facility] [place] - [address] [facility] [address] Laboratory Report Ordering Provider Test Date Status KRANTHI CHILDS 01/30/2024 10:39:23 Final Observation Date Value Abnormality Reference (Units ) Status Triglyceride 01/30/2024 10:39:23 94 <=174 ( mg/dL) Final Triglyceride Reference Range s (mg/dL):
<150 Acceptable
150-174 Borderline high
175-499 High
>=500 Very high Cholesterol 01/30/2024 10:39:23 84 <200 (mg /dL) Final Total Cholesterol Reference Ranges (mg/dL):
<200 Desirable
200-239 Borderline high
>=240 High HDL 01/30/2024 10:39:23 33 Below low normal >39 (mg/dL) Final HDL Cholesterol Reference Ra nges (mg/dL):
>=60 High (Desirable)
<50 Low (Undesirable) For Females
<40 Low (Undesirable) For Males NON-HDL CHOLESTEROL 01/30/2024 10:39:23 51 <=159 (mg/dL) Final Non-HDL Cholesterol Referenc e Range (mg/dL):
<100 Target level for high risk ASCVD patient
<130 Optimal for general population
130-159 Near optimal for general population
160-189 Borderline High
190-219 High
>=220 Very High LDL, (calculated) 01/30/2024 10:39:23 32 <= 129 (mg/dL) Final LDL Cholesterol Reference Ra nges (mg/dL):
<70 Target level for high risk ASCVD patient
<100 Optimal for general population
100-129 Near optimal for general population
130-159 Borderline high
160-189 High
>=190 Very high Performing Location [facility] [place] - [address] [facility] [address]
--- OUTSIDE RECORDS SUMMARY | 2024-04-08 23:44 | External Medical Summary | Summary of Care ---
Author Name Unknown Organization [facility] Address [address] [place] [address] Phone [phone] Care Team Providers Care Manager House Name Role Phone Rashaun Marinelli MD Primary Care Provider [phone] Reason for Visit * Reason Comments Appointment Encounter Details Date Type Department Care Team ([facility] st Contact Info) Description 12/31/2023 6:10 PM EDT Pharmacy Pharmacy [address] [phone] Pharmacist1, [facility] [address] [address] Type 2 diabetes mellitus with hemoglobin A1c goal of less than or equal to 9.0% ([facility])* Allergies No known active allergiesdocumented as of this encounter (statuses as of 12/31/2023) Medications Medication Sig Dispensed Refills Start Date [...] 10/04/2020 Active Vitamin D (Ergocalciferol) 1.25 MG (94058 UT) Oral Capsule Take 1 Cap by [...] as of this encounter (statuses as of 12/31/2023) Active Problems Problem Noted Date Diagnosed Date [...] as of this encounter (statuses as of 12/31/2023) Resolved Problems Problem Noted Date Diagnosed Date [...] as of this encounter (statuses as of 12/31/2023) Immunizations Name Administration Dates Next Due COVID-19 mRNA, LNP-s, No Pre serve, 2-Dose Series ([email or web address]) 02/13/2021,06/14/2020,05/24/2020 COVID-19, MRNA-LNP, 23-24, P F, 30 MCG/0.3 mL, 12 YRS AND ABOVE, IM [facility] 02/11/2023 Covid-19, Mrna, Lnp-s, Pf, B ivalent, [...] Notes * Deandra Valentine PHARM Tech - 12/31/2023 9:01 AM EDT Marquez has not contacted the clinic to schedule/reschedule an appointment for diabetes management per referral from PCP despite multiple attempts to do so by our team. Patient is discharged from [facility] services at this time. Thank you, Deandra Valentine Primary Care Sales Representative [facility]) [phone] 12/31/2023,9:01 AM documented in this encounter Plan of Treatment Upcoming Encounters Date Type Department Care Team ([facility] Contact Info) Description 01/13/2024 10:00 AM EDT Telemedicine [address] [phone] Rashaun Marinelli MD [address] [place] [address] Health Maintenance Due Date Last Done Comments [...] of less than or equal to 9.0% ([facility])- Primary documented in this encounter Care Teams Manager House Relationship Specialty Start Date End Date Rashaun Marinelli MD [address] [place] [address] PCP - General Family Medicine 07/24/15 documented as of this encounter
--- OUTSIDE RECORDS SUMMARY | 2024-04-08 23:44 | External Medical Summary ---
Author Name Unknown Address Unknown Organization K01:LABORATORY [facility] [place] - [address] [facility] [address] Laboratory Report Ordering Provider Test Date Status CANDACE CARDONA 01/30/2024 10:39:23 Final Observation Date Value Abnormality Reference (Units ) Status HbA1C 01/30/2024 10:39:23 8.1 Above high normal 4. 0-5.6 (%) Final The use of HbA1c to monitor glycemic status is based on normal hemoglobin and HbA composition. This test should not be used in patients with abnormal hemoglobin that affects the half life of the red blood cell or the in vivo glycation rates. Glucose, estimated average 01/30/2024 10:39:23 186 Above high normal <126 (mg/dL) Reginald cheng Performing Location LABORATORY [facility] [place] - [address] [facility] [address]
--- OUTSIDE RECORDS SUMMARY | 2024-04-08 23:44 | External Medical Summary | Summary of Care ---
Author Name Unknown Organization [facility] Address [address] [place] [address] Phone [phone] Care Team Providers Care Dramatic Director Name Role Phone Rashaun Marinelli MD Primary Care Provider [phone] Reason for Visit * Reason Comments Follow Up Encounter Details Date Type Department Care Team ([facility] Contact Info) Description 01/13/2024 10:00 AM EDT Telemedicine [address] [phone] Rashaun Marinelli MD [address] [place] [address] Type 2 diabetes mellitus with hemoglobin A1c goal of less than or equal to 9.0% ([facility]; DISC DIS [id number]; Intervertebral disc disorders with radiculopathy, lumbar region; Abdominal pain, epigastric; HTN, goal below 140/90; MEDICATION USE AGREEMENT; Screen for colon cancer Allergies No known active allergiesdocumented as of this encounter (statuses as of 01/13/2024) Medications Medication Sig Dispensed Refills Start Date [...] 10/04/2020 Active Vitamin D (Ergocalciferol) 1.25 MG (17040 UT) Oral Capsule Take 1 Cap by [...] less than or equal to 9.0% ([facility]) TAKE 1 TABLET BY MOUTH IN THE MORNING 90 Tablet 1 12/22/2023 Active Famotidine 20 MG Oral Tablet (Pepcid)Indication s:Abdominal pain, epigastric TAKE 1 TABLET BY MOUTH TWICE DAILY NEEDED FOR HEARTBURN . 180 Tablet 1 01/12/2024 Active documented as of this encounter (statuses as of 01/13/2024) Active Problems Problem Noted Date Diagnosed Date [...] as of this encounter (statuses as of 01/13/2024) Resolved Problems Problem Noted Date Diagnosed Date [...] as of this encounter (statuses as of 01/13/2024) Immunizations Name Administration Dates Next Due COVID-19 mRNA, LNP-s, No Pre serve, 2-Dose Series ([employer]) 02/13/2021,06/14/2020,05/24/2020 COVID-19, MRNA-LNP, 23-24, P F, 30 MCG/0.3 mL, 12 YRS AND ABOVE, IM ([facility]) 02/11/2023 Covid-19, Mrna, Lnp-s, Pf, B ivalent, [...] as of this encounter Progress Notes * Rashaun Marinelli MD - 01/13/2024 9:56 AM EDT Images from the original note were not included. History of Present Illness Marquez Casanova Sr. is a 63 year old male that presents for No chief complaint on file. Comes in for follow up Feels well no fever,cough vomiting diarrhea,rash,neck stiffness,chest pain,pnd,orthopnea,pedal edema,shortnessof breath,abdominal pain,dysuria,hematuria or melena Reviewed last labs,medications,vaccinations Due for colorectal cancer screen He will also get us updated copy of pneumonia vaccine he received from pharmacy Takes hydrocodone prn Last eye exam was at [facility]-will ask nurses to get me the report Due for labs,urine test and urine tox HYTN stable-tests at ambulance centre Chronic lower back pain-stable Type 2 dm stable Hemoglobin AIC Results: Lab Results Component Value Date/Time HEMOGLOBIN A1C - [facility] 7.4 (H) 03/24/2023 07:26 AM HEMOGLOBIN A1C - [facility] 7.3 (H) 09/06/2022 07:05 AM HEMOGLOBIN A1C - [facility] 8.7 (H) 02/04/2022 07:08 AM HEMOGLOBIN A1C - [facility] 8.5 (H) 03/17/2020 07:25 AM HEMOGLOBIN A1C - [facility] 8.4 (H) 08/23/2019 07:58 AM HEMOGLOBIN A1C - [facility] 8.4 (H) 04/20/2019 04:04 PM Physical Exam There were no vitals filed for this visit. BP Readings from Last 3 Encounters: 02/11/22 130/76 07/12/21 136/76 06/12/20 136/84 Wt Readings from Last 3 Encounters: 02/11/22 (!) 140.5 kg (309 lb 12.8 oz) 07/12/21 (!) 137.9 kg (304 lb) 06/12/20 (!) 144.4 kg (318 lb 6.4 oz) No physical exam I have reviewed the following results: urine tox, CMP, Lipid Panel, and Hemoglobin A1C Assessment and Plan Type 2 diabetes mellitus with hemoglobin A1c goal of less than or equal to 9.0% ([facility]) Trulicity compliant Insulin compliant Metformin compliant - CBC WITH WBC DIFFERENTIAL; Future - COMPREHENSIVE METABOLIC PANEL; Future - LIPID PANEL WITH DIRECT LDL IF TG IS HIGH; Future - HEMOGLOBIN A1C; Future - ALBUMIN / CREATININE RATIO, URINE; Future DISC DIS [id number] Hydrocodone prn Intervertebral disc disorders with radiculopathy, lumbar region - PAIN MANAGEMENT DRUG PANEL, URINE W/ INTERPRETATION; Future Abdominal pain, epigastric asymptomatic HTN, goal below 140/90 Lisinopril and HCTZ compliant MEDICATION USE AGREEMENT Screen for colon cancer - [facility] Wrap-Up Follow Up: Return in about 6 months (around 07/15/2024), or if symptoms worsen or fail to improve, for Return with Physician. | For: Return with Physician | Check-out note: Get me the report from eye doctor[facility] Schedule labs,urine test and nurse visit for diabetic foot exam on 01/30/24 Telemedicine: Patient location: HOME. I was in a hospital or clinic location. After connecting through [employer],patient was verified with two unique identifiers. Patient (or authorized legal event marketing representative) was then informed that this was a Telemedicine visit and being conducted confidentially over secure lines. Methods to assure confidentiality were taken. Patient acknowledged consent and understanding of pr ivacy and security of the Telemedicine visit. The patient agreed to participate. documented in this encounter Plan of Treatment Upcoming Encounters Date Type Department Care Team (Late st Contact Info) Description 07/19/2024 12:00 PM EST Office Visit [address] [phone] Rashaun Marinelli MD [address] [place] [address] Scheduled Orders Name Type Priority Associated Diagnoses Orde r Schedule CBC WITH WBC DIFFERENTIAL Lab Routine Type 2 diabetes mellitus with hemoglobin A1c goal of less than or equal to 9.0% (HCC) Expected: 01/13/2024 (Approximate), Expires: 01/12/2025 COMPREHENSIVE METABOLIC PANEL Lab Routine Type 2 diabetes mellitus with hemoglobin A1c goal of less than or equal to 9.0% (HCC) Expected: 01/13/2024 (Approximate), Expires: 01/12/2025 LIPID PANEL WITH DIRECT LDL IF TG IS HIGH Lab Routine Type 2 diabetes mellitus with hemoglobin A1c goal of less than or equal to 9.0% (HCC) Expected: 01/13/2024, Expires: 01/12/2025 HEMOGLOBIN A1C Lab Routine Type 2 diabetes mellitus with hemoglobin A1c goal of less than or equal to 9.0% (HCC) Expected: 01/13/2024 (Approximate), Expires: 01/12/2025 ALBUMIN / CREATININE RATIO, URINE Lab Routine Type 2 diabetes mellitus with hemoglobin A1c goal of less than or equal to 9.0% (HCC) Expected: 01/13/2024 (Approximate), Expires: 01/12/2025 PAIN MANAGEMENT DRUG PANEL, URINE W/ INTERPRETATION Lab Routine Intervertebral disc disorders with radiculopathy, lumbar region Expected: 02/13/2024 (Approximate), Expires: 01/12/2025 [facility] Lab Unrestricted Lab Screen for colon cancer Ordered: 01/13/2024 Health Maintenance Due Date Last Done Comments [...] than or equal to 9.0% (HCC)- Primary DISC DIS [id number] Other and unspecified disc disorder of lumbar region Intervertebral disc disorders with radiculopathy, lumbar region Abdominal pain, epigastric HTN, goal below 140/90 Unspecified essential hypertension MEDICATION USE AGREEMENT Screen for colon cancer Special screening for malignant neoplasms, colon documented in this encounter Care Teams Dramatic Director Relationship Specialty Start Date End Date Rashaun Marinelli MD [address] [place] [phone] PCP - General Family Medicine 07/24/15 documented as of this encounter"
== END 2024-04-08 15:37 | disposition home or self-care (01) | DRG 149 ==
LOC: ED 12:07 → SUATTDRO 18:09 → 2N 18:09